=== PATIENT | male | born 1965 | race Caucasian/White ===

== ENCOUNTER 2020-09-11 09:44 | Outpatient (REF) | payer MEDICARE, MEDICAID, SELFPAY ==
[2020-09-11 11:37] LABS: TSH reflex Free T4 1.08 mIU/mL (0.32-4.0)
== END 2020-09-11 09:45 | disposition home or self-care (01) ==
LOC: HO.LAB 09:44
PROVIDERS: Visit Provider Internal Medicine
DX: E06.3 Autoimmune thyroiditis (principal)
CPT/HCPCS: 84443

== ENCOUNTER → 2020-12-02 13:51 | Outpatient (BNV) | payer MEDICARE, MEDICAID, SELFPAY | PROVIDERS: PCP Internal Medicine; Visit Provider Internal Medicine Medical Oncology | DX: C18.2 Malignant neoplasm of ascending colon (principal); C62.90 Malignant neoplasm of unspecified testis, unspecified whether descended or undescended | CPT/HCPCS: 99204; 99212; 99213; 99214; G2211 ==

== ENCOUNTER 2020-12-24 17:13 | Emergency (ER) | payer MEDICARE, MEDICAID, SELFPAY ==
--- NOTE | ~2020-12-24 | CT_ITS ---
EXAMINATION: CT HEAD WITHOUT CONTRAST CLINICAL INFORMATION: Blurry vision. COMPARISON: CT scan of the head 07/22/2016. TECHNIQUE: Contiguous axial imaging was performed from the skull base to vertex without intravenous administration of contrast. This CT examination was performed using dose optimization techniques as appropriate, variously including the following: *Automated exposure control *Adjustment of mA and/or kV according to patient size (this includes techniques or standardized protocols for targeted exams where dose is matched to indication/reason for exam; i.e. extremities or head) *Use of iterative reconstruction technique DLP: 805 mGy-cm FINDINGS: There are a few prominent perivascular spaces and/or chronic within infarcts within the left basal ganglia. Scattered calcifications are visualized within the centrum semiovale which remains stable when compared to prior imaging from 07/22/2016. There is no acute intracranial hemorrhage or abnormal extra-axial collection. No intracranial mass effect midline shift. Lateral and third ventricles are normal. No hydrocephalus. Hernandez-white matter differentiation is grossly preserved and there is no evidence of acute territorial infarct. The calvarium and skull base are intact.. There are bilateral mastoid effusions. Moderate paranasal sinus disease primarily affecting the ethmoid air cells and frontal sinuses. Globes and orbits are symmetric. CT/CT head/brain wo con IMPRESSION: No acute intracranial finding. There are scattered chronic small vessel ischemic changes within the periventricular white matter. No evidence of acute territorial infarct or hemorrhage. Again there are stable nonspecific foci of mineralization involving the supratentorial white matter suggesting the presence of an underlying metabolic disorder.
--- NOTE | ~2020-12-24 | XR_ITS ---
EXAMINATION: PORTABLE CHEST 1 VIEW CLINICAL INFORMATION: chest pain . COMPARISON: 10/10/2016. TECHNIQUE: Portable frontal view of the chest was obtained. FINDINGS: The lungs are mildly hypoexpanded. No focal infiltrate, effusion, edema, or pneumothorax. Cardiac and mediastinal silhouettes are within normal limits for technique. No acute bony abnormality seen with mild degenerative changes in the spine and shoulders. XR/XR chest 1V IMPRESSION: No evidence of acute disease.
[2020-12-24 17:22] VITALS: BP 158/99; BP 190/130; PULSE 73; PULSE 78; RESP 24; TEMP 36.5; O2SAT 98; O2SAT 99; BMI 29.7
--- NOTE | 2020-12-24 17:34 | ECG_ITS ---
Test Reason : VOMITING Blood Pressure : / mmHG Vent. Rate : 072 BPM Atrial Rate : 072 BPM P-R Int : 152 ms QRS Dur : 098 ms QT Int : 374 ms P-R-T Axes : 040 041 051 degrees QTc Int : 409 ms Normal sinus rhythm Possible Left atrial enlargement Borderline ECG When compared with ECG of 22-JUL-2016 22:53, No significant change was found Referred By: Sisi Warner Electronically Signed By:MIRTA CABRERA MD
--- NOTE | 2020-12-24 17:36 | ED_ITS ---
HPI - Nausea/Vomiting/Diarrhea General Chief complaint: Nausea/Vomiting/Diarrhea Stated complaint: n/v, visual issue, htn Time Seen by Provider: 12/24/20 17:24 Source: patient and family Mode of arrival: ambulatory Limitations: other (Academic impairment, hearing impaired) History of Present Illness HPI Narrative: 55-year-old male with past medical history of academic impairment, hearing impairment, stage III seminoma in remission, thyroiditis, and hypertension presents with an episode of inability to control his eye movements and blurred vision, nausea, vomiting and chest pain. This started at 3:00 p.m. while he was getting onto his van from his work or day program. He states that the symptoms have resolved at this time. He does not report any prior illnesses, is no longer on chemotherapy, and does not take any medications at home. He does not drink alcohol or use illicit substances. His brother who is his guardian and vegetable harvest machine operator is at his bedside. MD elicited complaint: nausea, vomiting and other (Chest pain, irregular eye movements and blurred vision) Onset (ago): hour(s) (3:00 p.m.) Description of vomiting: watery Associated nausea: Yes Associated abdominal pain: No Location of pain: other (Substernal chest pain now resolved) Pain consistency: now resolved Severity: moderate Associated symptoms: chest pain and nausea/vomiting Related Data Home Medications Medication Instructions Recorded Confirmed No Known Home Meds 12/01/20 12/01/20 Allergies Allergy/AdvReac Type Severity Reaction Status Date / Time No Known Allergies Allergy Unknown NKA Verified 12/01/20 08:47 [No Known Allergies*] Review of Systems Review of Systems: Constitutional: No Weight loss, No Fever, No Chills, No Night Sweats, No Fatigue, No Malaise ENT/Mouth: Positive Hearing loss per baseline, No Ear Pain, No Nasal Congestion, No Sinus Pain, No Hoarseness, No sore throat, No Rhinorrhea, No Swallowing Difficulty Eyes: Positive irregular eye movements, No Eye Pain, No Swelling, No Redness, No Foreign Body, No Discharge, No Vision Changes Cardiovascular: Positive Chest Pain, no SOB, no Dyspnea on Exertion, No Orthopnea, No Edema, No Palpitations Respiratory: No Cough, No Sputum, No Wheezing, No Smoke Exposure, No Dyspnea Gastrointestinal: Positive Nausea, No Vomiting, No Diarrhea, No abdominal Pain, No Hematochezia, No Melena Genitourinary: No irregular bleeding, No Dysuria, No Urinary Frequency, No Hematuria, No Urinary Incontinence, No Urgency, No Flank Pain, No Urinary Flow Changes, No Hesitancy Musculoskeletal: No joint pain, No Myalgias, No Joint Swelling Skin: No Skin Lesions, No rash Neuro: No Weakness, No Numbness, No Paresthesias, No Loss of Consciousness, No Dizziness, No Headache Psych: No Anxiety/Panic, No Depression, No SI/HI/AH/VH Heme/Lymph: No Bruising, No Bleeding,No Lymphadenopathy Endocrine: No Polyuria, No Polydipsia, No Temperature Intolerance Yes all other systems are reviewed and are negative Gastrointestinal: Gastrointestinal: Reports nausea PMFSH Past Medical History Attestation statement: The following information was validated with the patient. Source: old records reviewed Medical History Autoimmune thyroiditis Bicytopenia Developmental delay, mild Family history of hypertension Hearing loss HTN (hypertension) Seminoma Testicle cancer Surgical History H/O arthroscopic knee surgery History of cholecystectomy History of neck surgery History of orchiectomy History of tonsillectomy Family History Family History Father Lung cancer Hypertension Mother Hypertension Paternal Grandfather Cancer Social History Social History Alcohol intake: never Smoking Status: Never smoker Use of substances other than those prescribed or required for medical reasons: No Advance Directives: No Advance Directives Information Provided: Yes Physical Exam Vital Signs: Vital Signs: Last Vital Signs Temp 98.7 F 12/24/20 20:16 Pulse 69 12/24/20 20:16 Resp 16 12/24/20 20:16 BP 147/87 H 12/24/20 20:16 Pulse Ox 98 12/24/20 20:16 Body Mass Index 29.7 Appearance: Alert. Oriented X3. No acute distress. Eyes: Pupils equal, round and reactive to light. EOMI with noted nystagmus to all gazes ENT: Pharynx normal. Neck: Normal inspection. Neck supple. CVS: Normal heart rate and rhythm. Pulses normal. Respiratory: No respiratory distress. Breath sounds normal. Abdomen: Soft and nontender. Skin: Skin warm and dry. Normal skin color. Normal skin turgor. Extremities: No lower extremity edema. Moves all extremities against resistance, gait well balanced well coordinated Neuro: No motor deficit. No sensory deficit. NIH Stroke Scale Internal: Initial- Upon Arrival Level of Consciousness: Alert Level of Consciousness Questions: Answers both questions correctly Level of Consciousness Commands: Performs both tasks correctly Best Gaze: Normal Visual: No visual loss Facial Palsy: Normal Motor Arm (Right): No drift Motor Arm (Left): No drift Motor Leg (Right): No drift Motor Leg (Left): No drift Limb Ataxia: Absent Sensory: Normal Best Language: No aphasia Dysarthia: Normal Extinction and Inattention: No abnormality Score: 0 Course Course Course Narrative: 55-year-old male with cognitive impairment, hearing impairmen t, stage 3 seminoma, thyroiditis, and hypertension presents with a retic eye movements, nausea, vomiting, and chest pain. Plan of care is for CT scan of the head, rule out ACS and arrhythmia, CBC, Chem 7, and COVID. Extraocular exam shows nystagmus to all gazes otherwise cranial nerves 2-12 intact. Chest x-ray is normal, EKG normal sinus with left atrial enlargement, consistent with prior EKGs. Lab values are within normal limits platelet count is 80 which is consistent with his prior lab values dating back to prior to 2018 and his diagnosis of bicytopenia. CT scan of the head is consistent with prior study done in 2016. Plan of care is to have outpatient referral to Neurology. Patient's brother and patient verbalized understanding of and agrees plan of care discharge home. MDM - Nausea/Vomiting/Diarrhea MDM Narrative Medical decision making narrative: Vasovagal, ACS, CVA Differential Diagnosis Differential diagnosis: Likely gastroenteritis and dehydration Medical Records Attestation: I reviewed the patient's medical records. Lab Data Attestation: I reviewed the patient's lab results. Result diagrams: 12/24/20 17:42 12/24/20 17:42 Labs: Lab Results 12/24/20 12/24/20 12/24/20 Range/Units 17:40 17:42 17:42 WBC 5.2 (4.8-10.8) X10*3/uL RBC 4.04 L (4.60-5.80) X10*6/uL Hgb 14.6 (14.0-18.0) g/dl Hct 41.9 L (42-52) % MCV 103.7 H (80-98) fL MCH 36.1 H (27.0-33.0) pg MCHC 34.8 (31.0-36.0) g/dl RDW 13.1 (11.0-16.0) % Plt Count 80 L (160-400) X10*3/uL MPV 8.3 L (9.4-12.4) fL Immature Gran % (Auto) 0.4 (0.0-0.4) % Neut % (Auto) 84.7 H (45-73) % Lymph % (Auto) 8.1 L (20-40) % [place] % (Auto) 6.2 (2-11) % Eos % (Auto) 0.4 (0-4) % Baso % (Auto) 0.2 (0-2) % Lymph # (Auto) 0.4 L (1.2-4.9) X10*3/uL [place] # (Auto) 0.3 (0.1-1.2) X10*3/uL Eos # (Auto) 0.0 (0.0-0.4) X10*3/uL Baso # (Auto) 0.0 (0.0-0.2) X10*3/uL Abs Immat Gran (auto) 0.02 (0.00-0.03) X10*3/uL Absolute Neuts (auto) 4.4 (2.0-8.3) X10*3/uL Absolute Nucleated RBC 0.000 (0.0-0.012) X10*3/uL Nucleated RBC % (auto) 0.0 (0.0-0.2) /100WBC Smear Tech's Comments VERIFIED PT 13.7 H (10.8-13.0) SEC INR 1.2 H (0.9-1.1) APTT 30.8 (24.1-38.0) SEC Sodium (135-145) mmol/L Potassium (3.3-5.1) mmol/L Chloride (96-108) mmol/L Carbon Dioxide (22-29) mmol/L Anion Gap (12-20) BUN (9-16) mg/dL Creatinine (0.5-1.4) mg/dL Estim Creat Clear Calc Estimated GFR POC Glucose 87 (60-115) mg/dL Random Glucose (60-115) mg/dL Calcium (8.4-10.2) mg/dL Magnesium (1.6-2.6) mg/dL Total Bilirubin (0.0-1.0) mg/dL Direct Bilirubin (0.0-0.5) mg/dL AST (5-37) U/L ALT (0-40) U/L Alkaline Phosphatase (39-117) U/L Troponin I High Sens (<3.5-35.0) ng/L Total Protein (6.5-8.0) g/dL Albumin (3.5-5.0) g/dL Lipase (8-78) U/L Urine Color Urine Appearance Urine pH (5.0-8.0) Ur Specific [place] (1.005-1.025) Urine Protein (NEG-TRACE) MG/DL Urine Glucose (UA) (NEG) MG/DL Urine Ketones (NEG) MG/DL Urine Blood (NEG) Urine Nitrite (NEG) Ur Leukocyte Esterase (NEG) Coronavirus (PCR) (Negative) Influenza Type A (PCR) (Negative) Influenza Type B (PCR) (Negative) RSV RNA Qual (PCR) (Negative) 12/24/20 12/24/20 12/24/20 Range/Units 17:42 17:42 17:42 WBC (4.8-10.8) X10*3/uL RBC (4.60-5.80) X10*6/uL Hgb (14.0-18.0) g/dl Hct (42-52) % MCV (80-98) fL MCH (27.0-33.0) pg MCHC (31.0-36.0) g/dl RDW (11.0-16.0) % Plt Count (160-400) X10*3/uL MPV (9.4-12.4) fL Immature Gran % (Auto) (0.0-0.4) % Neut % (Auto) (45-73) % Lymph % (Auto) (20-40) % [place] % (Auto) (2-11) % Eos % (Auto) (0-4) % Baso % (Auto) (0-2) % Lymph # (Auto) (1.2-4.9) X10*3/uL [place] # (Auto) (0.1-1.2) X10*3/uL Eos # (Auto) (0.0-0.4) X10*3/uL Baso # (Auto) (0.0-0.2) X10*3/uL Abs Immat Gran (auto) (0.00-0.03) X10*3/uL Absolute Neuts (auto) (2.0-8.3) X10*3/uL Absolute Nucleated RBC (0.0-0.012) X10*3/uL Nucleated RBC % (auto) (0.0-0.2) /100WBC Smear Tech's Comments PT (10.8-13.0) SEC INR (0.9-1.1) APTT (24.1-38.0) SEC Sodium 139 (135-145) mmol/L Potassium 4.4 (3.3-5.1) mmol/L Chloride 101 (96-108) mmol/L Carbon Dioxide 31 H (22-29) mmol/L Anion Gap 11 L (12-20) BUN 16 (9-16) mg/dL Creatinine 0.94 (0.5-1.4) mg/dL Estim Creat Clear Calc 77.1 Estimated GFR > 60 POC Glucose (60-115) mg/dL Random Glucose 101 (60-115) mg/dL Calcium 8.7 (8.4-10.2) mg/dL Magnesium 1.8 (1.6-2.6) mg/dL Total Bilirubin 0.7 (0.0-1.0) mg/dL Direct Bilirubin 0.3 (0.0-0.5) mg/dL AST 19 (5-37) U/L ALT 11 (0-40) U/L Alkaline Phosphatase 55 (39-117) U/L Troponin I High Sens 7.6 (<3.5-35.0) ng/L Total Protein 7.0 (6.5-8.0) g/dL Albumin 4.1 (3.5-5.0) g/dL Lipase 39 (8-78) U/L Urine Color Urine Appearance Urine pH (5.0-8.0) Ur Specific [place] (1.005-1.025) Urine Protein (NEG-TRACE) MG/DL Urine Glucose (UA) (NEG) MG/DL Urine Ketones (NEG) MG/DL Urine Blood (NEG) Urine Nitrite (NEG) Ur Leukocyte Esterase (NEG) Coronavirus (PCR) NEGATIVE (Negative) Influenza Type A (PCR) NEGATIVE (Negative) Influenza Type B (PCR) NEGATIVE (Negative) RSV RNA Qual (PCR) NEGATIVE (Negative) 12/24/20 Range/Units 19:40 WBC (4.8-10.8) X10*3/uL RBC (4.60-5.80) X10*6/uL Hgb (14.0-18.0) g/dl Hct (42-52) % MCV (80-98) fL MCH (27.0-33.0) pg MCHC (31.0-36.0) g/dl RDW (11.0-16.0) % Plt Count (160-400) X10*3/uL MPV (9.4-12.4) fL Immature Gran % (Auto) (0.0-0.4) % Neut % (Auto) (45-73) % Lymph % (Auto) (20-40) % [place] % (Auto) (2-11) % Eos % (Auto) (0-4) % Baso % (Auto) (0-2) % Lymph # (Auto) (1.2-4.9) X10*3/uL [place] # (Auto) (0.1-1.2) X10*3/uL Eos # (Auto) (0.0-0.4) X10*3/uL Baso # (Auto) (0.0-0.2) X10*3/uL Abs Immat Gran (auto) (0.00-0.03) X10*3/uL Absolute Neuts (auto) (2.0-8.3) X10*3/uL Absolute Nucleated RBC (0.0-0.012) X10*3/uL Nucleated RBC % (auto) (0.0-0.2) /100WBC Smear Tech's Comments PT (10.8-13.0) SEC INR (0.9-1.1) APTT (24.1-38.0) SEC Sodium (135-145) mmol/L Potassium (3.3-5.1) mmol/L Chloride (96-108) mmol/L Carbon Dioxide (22-29) mmol/L Anion Gap (12-20) BUN (9-16) mg/dL Creatinine (0.5-1.4) mg/dL Estim Creat Clear Calc Estimated GFR POC Glucose (60-115) mg/dL Random Glucose (60-115) mg/dL Calcium (8.4-10.2) mg/dL Magnesium (1.6-2.6) mg/dL Total Bilirubin (0.0-1.0) mg/dL Direct Bilirubin (0.0-0.5) mg/dL AST (5-37) U/L ALT (0-40) U/L Alkaline Phosphatase (39-117) U/L Troponin I High Sens (<3.5-35.0) ng/L Total Protein (6.5-8.0) g/dL Albumin (3.5-5.0) g/dL Lipase (8-78) U/L Urine Color YELLOW Urine Appearance CLEAR Urine pH 5.5 (5.0-8.0) Ur Specific [place] 1.025 (1.005-1.025) Urine Protein NEG (NEG-TRACE) MG/DL Urine Glucose (UA) NEG (NEG) MG/DL Urine Ketones 15 (NEG) MG/DL Urine Blood NEG (NEG) Urine Nitrite NEG (NEG) Ur Leukocyte Esterase NEG (NEG) Coronavirus (PCR) (Negative) Influenza Type A (PCR) (Negative) Influenza Type B (PCR) (Negative) RSV RNA Qual (PCR) (Negative) Imaging Data Chest x-ray: Attestation: I personally reviewed and interpreted this imaging study as follows: Radiologist's impression: EXAMINATION: PORTABLE CHEST 1 VIEW CLINICAL INFORMATION: chest pain . COMPARISON: 10/10/2016. TECHNIQUE: Portable frontal view of the chest was obtained. FINDINGS: The lungs are mildly hypoexpanded. No focal infiltrate, effusion, edema, or pneumothorax. Cardiac and mediastinal silhouettes are within normal limits for technique. No acute bony abnormality seen with mild degenerative changes in the spine and shoulders. XR/XR chest 1V IMPRESSION: No evidence of acute disease. CT scan - head: Attestation: I personally reviewed and interpreted this imaging study as follows: Radiologist's impression: EXAMINATION: CT HEAD WITHOUT CONTRAST CLINICAL INFORMATION: Blurry vision. COMPARISON: CT scan of the head 07/22/2016. TECHNIQUE: Contiguous axial imaging was performed from the skull base to vertex without intravenous administration of contrast. This CT examination was performed using dose optimization techniques as appropriate, variously including the following: *Automated exposure control *Adjustment of mA and/or kV according to patient size (this includes techniques or standardized protocols for targeted exams where dose is matched to indication/reason for exam; i.e. extremities or head) *Use of iterative reconstruction technique DLP: 805 mGy-cm FINDINGS: There are a few prominent perivascular spaces and/or chronic within infarcts within the left basal ganglia. Scattered calcifications are visualized within the centrum semiovale which remains stable when compared to prior imaging from 07/22/2016. There is no acute intracranial hemorrhage or abnormal extra-axial collection. No intracranial mass effect midline shift. Lateral and third ventricles are normal. No hydrocephalus. Hernandez-white matter differentiation is grossly preserved and there is no evidence of acute territorial infarct. The calvarium and skull base are intact.. There are bilateral mastoid effusions. Moderate paranasal sinus disease primarily affecting the ethmoid air cells and frontal sinuses. Globes and orbits are symmetric. CT/CT head/brain wo con IMPRESSION: No acute intracranial finding. There are scattered chronic small vessel ischemic changes within the periventricular white matter. No evidence of acute territorial infarct or hemorrhage. Again there are stable nonspecific foci of mineralization involving the supratentorial white matter suggesting the presence of an underlying metabolic disorder. ECG Data Attestation: I personally reviewed and interpreted this ECG as follows: ECG interpretation date: 12/24/20 ECG interpretation time: 17:47 Prior ECG tracings: available for review Interpretation: Vent. rate 72 BPM OR interval 152 ms QRS duration 98 ms QT/QTc 374/409 ms P-R-T axes 40 41 51 Normal sinus rhythm Possible Left atrial enlargement Borderline ECG When compared with ECG of 22-JUL-2016 22:53, No s ignificant change was found Discharge Plan Discharge Clinical Impression: Bicytopenia, Nystagmus Patient Disposition: Home, Self-Care Instructions: Dizziness (ED) Additional Instructions: You were evaluated for abnormal eye movements, nauseousness and dizziness. EKG is normal sinus rhythm, troponins which are cardiac enzymes are negative, lab values are within your normal limits CT scan of the head shows changes which have been consistent since 2016. Please consider following up with Neurology as an outpatient. Call Dr. Azevedo and ask for an appointment. Please let him know that you were evaluated for abnormal eye movements called nystagmus. Thank you for choosing this emergency department for evaluation. Please follow-up with primary care physician as needed. Return to the emergency department for any new, concerning, or worsening symptoms. Prescriptions: No Action No Known Home Meds RF: 0 Referrals: Cristina Azevedo MD [Physician] - 2 days (Abnormal extraocular eye movements) Interventions: ED Discharge Assessment Last Done: 12/24/20 20:58 Discharge Date/Time: 12/24/20 21:00
[2020-12-24 17:48] LABS: Glucose, Whole Blood 87 mg/dL (60-115)
[2020-12-24 17:52] LABS: Basophils Percent Auto 0.2 % (0-2); Eosinophils Percent Auto 0.4 % (0-4); Hematocrit 41.9 % (42-52); Hemoglobin 14.6 g/dl (14.0-18.0); Imm Gran Abs Auto 0.02 X10*3/uL (0.00-0.03); Imm Gran Pct Auto 0.4 % (0.0-0.4); Lymphocytes Absolute Auto 0.4 X10*3/uL (1.2-4.9); Lymphocytes Percent Auto 8.1 % (20-40); MANUAL DIFF FLAG SCAN; Mean Corpuscular HGB Conc 34.8 g/dl (31.0-36.0); Mean Corpuscular Hemoglobin 36.1 pg (27.0-33.0); Mean Corpuscular Volume 103.7 fL (80-98); Mean Platelet Volume 8.3 fL (9.4-12.4); Monocytes Absolute Auto 0.3 X10*3/uL (0.1-1.2); Monocytes Percent Auto 6.2 % (2-11); Neutrophils Absolute Auto 4.4 X10*3/uL (2.0-8.3); Neutrophils Percent Auto 84.7 % (45-73); Red Blood Count 4.04 X10*6/uL (4.60-5.80); Red Cell Distribution Width 13.1 % (11.0-16.0); SCAN SMEAR FLAG 1; White Blood Count 5.2 X10*3/uL (4.8-10.8)
[2020-12-24 18:07] LABS: INTERNATIONAL NORM RATIO 1.2 (0.9-1.1); Prothrombin Time 13.7 SEC (10.8-13.0)
[2020-12-24 18:09] LABS: Partial Thromboplastin Time 30.8 SEC (24.1-38.0)
[2020-12-24 18:10] LABS: Platelet Count 80 X10*3/uL (160-400); SLIDE REVIEW VERIFIED
[2020-12-24 18:17] LABS: Alanine Aminotransferase 11 U/L (0-40); Albumin Level 4.1 g/dL (3.5-5.0); Alkaline Phosphatase 55 U/L (39-117); Anion Gap 11 (12-20); Aspartate Amino Transferase 19 U/L (5-37); Bilirubin Direct 0.3 mg/dL (0.0-0.5); Bilirubin Total 0.7 mg/dL (0.0-1.0); Blood Urea Nitrogen 16 mg/dL (9-16); Calcium 8.7 mg/dL (8.4-10.2); Carbon Dioxide 31 mmol/L (22-29); Chloride 101 mmol/L (96-108); Creatinine Clr Calc Pharmacy 77.1; Estimated Glomerular Filt Rate > 60; Glucose Random 101 mg/dL (60-115); Lipase 39 U/L (8-78); Magnesium 1.8 mg/dL (1.6-2.6); Potassium 4.4 mmol/L (3.3-5.1); Sodium 139 mmol/L (135-145)
[2020-12-24 18:23] LABS: Troponin-I High Sensitivity 7.6 ng/L (<3.5-35.0)
[2020-12-24 18:31] LABS: Influenza A PCR NEGATIVE (Negative); Influenza B PCR NEGATIVE (Negative); Resp Syncy Virus RNA Qual PCR NEGATIVE (Negative); SARS COV2 PCR INHOUSE NEGATIVE (Negative)
[2020-12-24 18:40] VITALS: BP 142/87; PULSE 73; RESP 17; TEMP 36.6; O2SAT 98
[2020-12-24 19:36] VITALS: BP 144/87; PULSE 74; RESP 18; TEMP 37.1; O2SAT 97
[2020-12-24 19:48] LABS: Glucose Urine UA NEG (NEG); Leukocyte Esterase Urine NEG (NEG); Nitrite Urine NEG (NEG); PH 5.5 (5.0-8.0); Specific Gravity - Urine 1.025 (1.005-1.025); Urine Blood NEG (NEG); Urine Ketones 15 MG/DL (NEG); Urine Protein NEG (NEG-TRACE)
[2020-12-24 19:49] LABS: Appearance Urine CLEAR; Color Urine YELLOW
[2020-12-24 20:16] VITALS: BP 147/87; PULSE 69; RESP 16; TEMP 37.1; O2SAT 98
== END 2020-12-24 21:00 | disposition home or self-care (01) ==
PROVIDERS: Nurse Practitioner Family; Emergency Provider Emergency Medicine; PCP Internal Medicine
DX: H55.00 Unspecified nystagmus (principal); D61.810 Antineoplastic chemotherapy induced pancytopenia; R42 Dizziness and giddiness; Z20.822 Contact with and (suspected) exposure to COVID-19; I10 Essential (primary) hypertension; Z85.47 Personal history of malignant neoplasm of testis
CPT/HCPCS: 0241U; 36415; 70450; 71045; 80048; 80076; 81003; 82947; 83690; 83735; 84484; 85025; 85610; 85730; 93005; 99284

== ENCOUNTER 2020-12-26 11:35 | Emergency (ER) | payer MEDICARE, MEDICAID, SELFPAY ==
--- NOTE | ~2020-12-26 | MR_ITS ---
MRI OF THE BRAIN WITHOUT IV CONTRAST INDICATION: Dizziness. Lateral Rotary nystagmus for 3 days. COMPARISON: Head CT performed earlier the same day. TECHNIQUE: Multiplanar multisequence MR imaging of the brain was obtained without IV contrast. FINDINGS: There is no hydrocephalus, extra-axial surface collection, or herniation. Calcification along the posterior falx cerebri. 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 There is moderate chronic microangiopathy. Asymmetric prominence of the extra-axial CSF space within the left posterior fossa. The major flow voids at the skull base are preserved. There is no acute infarct on diffusion-weighted imaging. There is no intracranial hemorrhage on the gradient recalled echo acquisition. The midline structures are normal. The cerebellar tonsils are normally positioned. The cerebellum and brainstem are normal. The craniocervical junction is normal. Osseous marrow signal intensity is homogenous. The visualized soft tissues are unremarkable. Large right mastoid/middle ear cavity effusion. MR/MR head/brain wo con IMPRESSION: - No acute intracranial findings. 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 - Large right mastoid/middle ear cavity effusion.
[2020-12-26 11:45] VITALS: BP 154/90; BP 180/90; PULSE 78; PULSE 84; RESP 17; TEMP 36.7; O2SAT 98; O2SAT 99; BMI 25.9
--- NOTE | 2020-12-26 12:21 | ECG_ITS ---
Test Reason : CHEST PAIN Blood Pressure : / mmHG Vent. Rate : 076 BPM Atrial Rate : 076 BPM P-R Int : 148 ms QRS Dur : 086 ms QT Int : 390 ms P-R-T Axes : 043 045 067 degrees QTc Int : 438 ms Normal sinus rhythm Possible Left atrial enlargement Borderline ECG When compared with ECG of 24-DEC-2020 17:47, No significant change was found Referred By: Frank Fountain Electronically Signed By:MIRTA CABRERA MD
--- NOTE | 2020-12-26 12:24 | ED_ITS ---
HPI - General Adult General Chief complaint: General Medical Stated complaint: HIGH BP, SHAKY EYES SAME LAST SUNDAY Time Seen by Provider: 12/26/20 11:44 Source: patient and family (Brother, Wilfrido) Mode of arrival: ambulatory Limitations: no limitations History of Present Illness HPI narrative: 55-year-old male hearing impaired and developmental delay who presents the emergency department for evaluation of persistent nystagmus. The patient is hearing impaired, he came here with a hearing aid and he can read l ips. The patient has developmental delay in his brother states that his IQ was 50 but he is highly functional and can work. The patient's brother Wilfrido is here in the emergency department and most of the information came from the patient's brother. The patient was seen here in the emergency department on Sunday with dizziness, chest pain and a stagnant. According to his brother, the patient works at [employer]. He completed the shift in when he was trying to go home he had difficulty seeing and walking. He was unable to afford the boss and his brother had to pick him up. He was noted to have abnormal eye movements. He was noted to have hypertension and the brother states his blood pressure was 140/110. He had associated nausea vomiting chest pain and dizziness. He was seen here in the emergency department and had a in negative workup and was referred to Neurology. According to his brother the patient was doing fine this morning. At approximately 9:30 a.m., his symptoms returned. He complained of difficulty seeing his eyes removing, lightheadedness, dizziness, nausea and chest pain. Patient states that his blood pressure was elevated at home and he was concerned that the symptoms returned, therefore he brought the patient to the emergency department for evaluation did Related Data Home Medications Medication Instructions Recorded Confirmed No Known Home Meds 12/01/20 12/01/20 Allergies Allergy/AdvReac Type Severity Reaction Status Date / Time No Known Allergies Allergy Unknown NKA Verified 12/01/20 08:47 [No Known Allergies*] Review of Systems Review of Systems: Yes all other systems are reviewed and are negative Neurologic: Reports Abnormal speech present (Secondary to hearing deficits, comprehensible) PMFSH Past Medical History PMFSH Narrative: The patient lives with his brother here in the emergency department the patient. The patient does not drink alcohol, smoke cigarettes or use drugs. The patient works at [employer]. Medical History Autoimmune thyroiditis Bicytopenia Developmental delay, mild Family history of hypertension Hearing loss HTN (hypertension) [place]in[place] Testicle cancer Surgical History H/O arthroscopic knee surgery History of cholecystectomy History of neck surgery History of orchiectomy History of tonsillectomy Family History Family History Father Lung cancer Hypertension Mother Hypertension Paternal Grandfather Cancer Social History Social History Alcohol intake: never Smoking Status: Never smoker Smoked in Last 30 Days: No Use of substances other than those prescribed or required for medical reasons: No Advance Directives: No Advance Directives Information Provided: Yes Physical Exam Vital Signs: Vital Signs: Last Vital Signs Temp 98.6 F 12/26/20 16:26 Pulse 74 12/26/20 16:26 Resp 16 12/26/20 16:26 BP 153/89 H 12/26/20 16:26 Pulse Ox 98 12/26/20 16:26 Body Mass Index 25.9 Const: General: cooperative and other ( can hear with hearing aid, speech is abnormal secondary to hearing impair) Orientation/consciousness: oriented to person and oriented to place Limitations: no limitations HENMT: Head: Yes normal to inspection, Yes normocephalic and Yes atraumatic Ears: external ears normal and other (Hearing in right ear) General nose exam: Normal external nose present Face and sinus: Yes normal facial exam Mouth: Normal oral and palatal mucosa present Throat: Yes posterior oropharynx normal Eyes: Periorbital: periorbital findings normal Eyelids: Yes eyelids normal Conjunctivae: conjunctivae normal Sclerae: sclerae normal Corneas: corneas normal Pupils: Equal, round and reactive pupils present EOM: Nystagmus present (Lateral nystagmus, rotatory nystagmus, no vertical nystagmus) Direct Ophthalmoscopy: normal light reflex Neck: Neck: Yes full ROM, Yes no lymphadenopathy, Yes no meningeal signs, Yes trachea midline and Yes supple Chest: Chest palpation & inspection: normal inspection of the chest and normal palpation of entire chest wall Resp: Effort & Inspection: normal respiratory effort and able to speak in complete sentences Auscultation: clear to auscultation bilaterally Cardio: Rate: regular rate Rhythm: regular rhythm Heart sounds: S1 normal heart sound present, S2 normal heart sound present and no murmurs GI: Inspection: Yes normal to inspection Palpation (GI): Soft to palpation, nontender, no guarding, not rigid and No hepatosplenomegaly present : General: Yes no CVA tenderness Back/Spine/Pelvis: Back: no CVA tenderness Cervical Spine: normal cervical lordosis Thoracic/Lumbar Spine: thoracic and lumbar spine normal to inspection Skin: Lesions: no lesions Rashes: no rashes Wounds: no wounds Neuro: General: oriented to person, oriented to place and no meningeal signs Cranial nerves: Yes CN's II-XII intact bilaterally and Yes Equal, round and reactive pupils present Cognition (Neuro): normal cognition Speech: Abnormal speech present (Secondary to hearing deficits, comprehensible) Motor exam (neuro): 5/5 motor strength present throughout Coordination: [id number] test normal, wheq-ic-hxan test normal and Normal rapid alternating movements of the distal upper extremity present (Neuro) Extrem: General: Yes normal to inspection and Yes full ROM Psych: Appearance: well kempt Mental Status: mental status grossly normal Affect: normal affect Attitude: cooperative Thought process: Normal thought process present Thought content: Normal thought content present NIH Stroke Scale Level of Consciousness: Alert Level of Consciousness Questions: Answers both questions correctly Level of Consciousness Commands: Performs both tasks correctly Best Gaze: Normal Visual: No visual loss Facial Palsy: Normal Motor Arm (Right): No drift Motor Arm (Left): No drift Motor Leg (Right): No drift Motor Leg (Left): No drift Limb Ataxia: Absent Sensory: Normal Best Language: No aphasia Dysarthia: Normal Extinction and Inattention: No abnormality Score: 0 Course Course Course Narrative: 55-year-old male presents emergency department for evaluation dizziness, nausea, nystagmus. This is the patient's 2nd visit, he was here 3 days prior with similar symptoms. The patient's examination did reveal significant nystagmus (lateral and rotatory). I am concerned that the patient may have a cerebellar stroke therefore did order an MRI of the brain. I also ordered a laboratory evaluation. The patient's nausea was treated with Zofran 4 mg IV and his dizziness was treated with meclizine 25 mg orally. 1710: The patient did feel better with the above treatment. Laboratory evaluation did reveal low white blood cell count low platelet count which is chronic for this patient. MRI of the brain revealed no evidence of cerebellar stroke. Patient's presentation is consistent with positional vertigo. He was started on meclizine 25 mg 3 times a day as needed for dizziness. He was advised to follow up with his PCP if his symptoms persist he will need referral to ENT. Medical Decision Making Lab Data Result diagrams: 12/26/20 12:43 12/26/20 12:42 Labs: Lab Results 12/26/20 12/26/20 12/26/20 Range/Units 12:42 12:42 12:43 WBC 2.4 L (4.8-10.8) X10*3/uL RBC 4.32 L (4.60-5.80) X10*6/uL Hgb 15.5 (14.0-18.0) g/dl Hct 45.1 (42-52) % MCV 104.4 H (80-98) fL MCH 35.9 H (27.0-33.0) pg MCHC 34.4 (31.0-36.0) g/dl RDW 13.2 (11.0-16.0) % Plt Count 77 L (160-400) X10*3/uL MPV 8.6 L (9.4-12.4) fL Immature Gran % (Auto) 0.4 (0.0-0.4) % Neut % (Auto) 73.7 H (45-73) % Lymph % (Auto) 16.5 L (20-40) % [place] % (Auto) 7.8 (2-11) % Eos % (Auto) 1.6 (0-4) % Baso % (Auto) 0.0 (0-2) % Lymph # (Auto) 0.4 L (1.2-4.9) X10*3/uL [place] # (Auto) 0.2 (0.1-1.2) X10*3/uL Eos # (Auto) 0.0 (0.0-0.4) X10*3/uL Baso # (Auto) 0.0 (0.0-0.2) X10*3/uL Abs Immat Gran (auto) 0.01 (0.00-0.03) X10*3/uL Absolute Neuts (auto) 1.8 L (2.0-8.3) X10*3/uL Absolute Nucleated RBC 0.000 (0.0-0.012) X10*3/uL Nucleated RBC % (auto) 0.0 (0.0-0.2) /100WBC Smear Tech's Comments VERIFIED PT 13.2 H (10.8-13.0) SEC INR 1.1 (0.9-1.1) APTT 37.1 D (24.1-38.0) SEC Sodium 137 (135-145) mmol/L Potassium 3.8 (3.3-5.1) mmol/L Chloride 99 (96-108) mmol/L Carbon Dioxide 29 (22-29) mmol/L Anion Gap 13 (12-20) BUN 17 H (9-16) mg/dL Creatinine 0.94 (0.5-1.4) mg/dL Estim Creat Clear Calc 67.7 Estimated GFR > 60 Random Glucose 91 (60-115) mg/dL Calcium 8.7 (8.4-10.2) mg/dL Total Bilirubin 1.1 H (0.0-1.0) mg/dL AST 18 (5-37) U/L ALT 14 (0-40) U/L Alkaline Phosphatase 59 (39-117) U/L Total Protein 7.0 (6.5-8.0) g/dL Albumin 4.1 (3.5-5.0) g/dL ECG Data Attestation: I personally reviewed and interpreted this ECG as follows: Interpretation: 1230: Normal sinus rhythm rate 76, normal ND, QRS and QTC intervals, small Q-wave in lead 2, 3 and AVF, V4 through V5 no ST segment elevation, no ST segment depression, no old EKG for comparison. Discharge Plan Discharge Prescriptions: No Action No Known Home Meds RF: 0
[2020-12-26] MEDS: 0.9 % Sodium Chloride 1,000 ML 999 ML IV (12:37)
[2020-12-26] MEDS: ondansetron HCL 4 MG/2 ML VIAL IVPUSH (12:38)
[2020-12-26] MEDS: Meclizine HCl 25 MG TABLET PO (12:42)
--- NOTE | 2020-12-26 12:47 | PC.NURSE ---
iv inserted, labs drawn, ekg performed, swallow eval done-pt passed swallow eval, pt medicated per order.
[2020-12-26 12:52] LABS: Eosinophils Percent Auto 1.6 % (0-4); Hematocrit 45.1 % (42-52); Hemoglobin 15.5 g/dl (14.0-18.0); Imm Gran Abs Auto 0.01 X10*3/uL (0.00-0.03); Imm Gran Pct Auto 0.4 % (0.0-0.4); Lymphocytes Absolute Auto 0.4 X10*3/uL (1.2-4.9); Lymphocytes Percent Auto 16.5 % (20-40); MANUAL DIFF FLAG SCAN; Mean Corpuscular HGB Conc 34.4 g/dl (31.0-36.0); Mean Corpuscular Hemoglobin 35.9 pg (27.0-33.0); Mean Corpuscular Volume 104.4 fL (80-98); Mean Platelet Volume 8.6 fL (9.4-12.4); Monocytes Absolute Auto 0.2 X10*3/uL (0.1-1.2); Monocytes Percent Auto 7.8 % (2-11); Neutrophils Absolute Auto 1.8 X10*3/uL (2.0-8.3); Neutrophils Percent Auto 73.7 % (45-73); Platelet Count 77 X10*3/uL (160-400); Red Blood Count 4.32 X10*6/uL (4.60-5.80); Red Cell Distribution Width 13.2 % (11.0-16.0); SCAN SMEAR FLAG 1; White Blood Count 2.4 X10*3/uL (4.8-10.8)
[2020-12-26 12:58] LABS: INTERNATIONAL NORM RATIO 1.1 (0.9-1.1); Prothrombin Time 13.2 SEC (10.8-13.0)
[2020-12-26 13:01] LABS: Partial Thromboplastin Time 37.1 SEC (24.1-38.0)
--- NOTE | 2020-12-26 13:17 | PC.NURSE ---
patient oob with assist at bedside, patient independently used urinal and was assisted back into bed.
--- NOTE | 2020-12-26 13:18 | PC.NURSE ---
patient a&o to his baseline-developmentally delayed, caregiver-brother is at bedside to assist with answering questions about medical history. Patients neuro is intact, vitals remain stable, mri screening form has been completed, will continue to monitor.
[2020-12-26 13:24] LABS: SLIDE REVIEW VERIFIED
[2020-12-26 13:29] LABS: Alanine Aminotransferase 14 U/L (0-40); Albumin Level 4.1 g/dL (3.5-5.0); Alkaline Phosphatase 59 U/L (39-117); Anion Gap 13 (12-20); Aspartate Amino Transferase 18 U/L (5-37); Bilirubin Total 1.1 mg/dL (0.0-1.0); Blood Urea Nitrogen 17 mg/dL (9-16); Calcium 8.7 mg/dL (8.4-10.2); Carbon Dioxide 29 mmol/L (22-29); Chloride 99 mmol/L (96-108); Creatinine Clr Calc Pharmacy 67.7; Estimated Glomerular Filt Rate > 60; Glucose Random 91 mg/dL (60-115); Potassium 3.8 mmol/L (3.3-5.1); Sodium 137 mmol/L (135-145)
--- NOTE | 2020-12-26 15:11 | PC.NURSE ---
pt returned from mri
[2020-12-26 15:24] VITALS: BP 159/85; PULSE 73; RESP 17; TEMP 36.7; O2SAT 97
--- NOTE | 2020-12-26 15:25 | PC.NURSE ---
patient a&ox3, watching tv, neuro intact to baseline, business services officer nsr 75, vss, will continue to monitor.
[2020-12-26 16:26] VITALS: BP 153/89; PULSE 74; RESP 16; TEMP 37; O2SAT 98
== END 2020-12-26 17:27 | disposition home or self-care (01) ==
PROVIDERS: Emergency Provider Emergency Medicine Emergency Medical Services; PCP Internal Medicine
DX: R42 Dizziness and giddiness (principal); R11.0 Nausea; R29.700 NIHSS score 0
CPT/HCPCS: 36415; 70551; 80053; 85025; 85060; 85610; 85730; 93005; 96361; 96374; 99284; 99285; J2405

== ENCOUNTER 2021-06-18 08:46 | Outpatient (REF) | payer MEDICARE, MEDICAID, SELFPAY ==
[2021-06-18 10:24] LABS: Cholesterol 137 mg/dL; HDL Cholesterol 46 mg/dL; LDL Cholesterol Calculated 84 mg/dl; Triglycerides 35 mg/dL
[2021-06-18 10:43] LABS: TSH reflex Free T4 1.82 uIU/mL (0.32-4.0)
== END 2021-06-18 08:47 | disposition home or self-care (01) ==
LOC: HO.LAB 08:46
PROVIDERS: PCP Internal Medicine; Visit Provider Internal Medicine
DX: E06.3 Autoimmune thyroiditis (principal); Z82.49 Family history of ischemic heart disease and other diseases of the circulatory system
CPT/HCPCS: 36415; 80061; 84443

== ENCOUNTER 2021-11-07 06:53 | Outpatient (REF) | payer MEDICARE, MEDICAID, SELFPAY ==
[2021-11-07 08:09] LABS: Thyroid Stimulating Hormone 2.59 uIU/mL (0.32-4.0)
== END 2021-11-07 06:54 | disposition home or self-care (01) ==
LOC: HO.LAB 06:53
PROVIDERS: PCP Internal Medicine; Visit Provider Internal Medicine
DX: E06.3 Autoimmune thyroiditis (principal)
CPT/HCPCS: 36415; 84443

== ENCOUNTER 2022-08-12 08:45 | Outpatient (REF) | payer MEDICARE, MEDICAID, SELFPAY ==
[2022-08-12 10:00] LABS: Alanine Aminotransferase 15 U/L (0-40); Albumin Level 4.1 g/dL (3.5-5.0); Alkaline Phosphatase 53 U/L (39-117); Anion Gap 13 (12-20); Aspartate Amino Transferase 20 U/L (5-37); Bilirubin Total 0.9 mg/dL (0.0-1.0); Blood Urea Nitrogen 18 mg/dL (9-16); Calcium 9.4 mg/dL (8.4-10.2); Carbon Dioxide 31 mmol/L (22-29); Chloride 100 mmol/L (96-108); Cholesterol 140 mg/dL; Estimated Glomerular Filt Rate > 60; Glucose Fasting 95 mg/dL (60-99); HDL Cholesterol 45 mg/dL; LDL Cholesterol Calculated 87 mg/dl; Potassium 5.1 mmol/L (3.3-5.1); Sodium 139 mmol/L (135-145); Total Protein 7.6 g/dL (6.5-8.0); Triglycerides 42 mg/dL
[2022-08-12 10:20] LABS: Thyroid Stimulating Hormone 1.25 uIU/mL (0.32-4.0)
== END 2022-08-12 08:46 | disposition home or self-care (01) ==
LOC: HO.LAB 08:45
PROVIDERS: PCP Internal Medicine; Visit Provider Internal Medicine
DX: Z00.00 Encounter for general adult medical examination without abnormal findings (principal); E06.3 Autoimmune thyroiditis
CPT/HCPCS: 36415; 80053; 80061; 84443

== ENCOUNTER 2023-08-25 08:56 | Outpatient (REF) | payer MEDICARE, MEDICAID, SELFPAY ==
[2023-08-25 10:13] LABS: Alanine Aminotransferase 14 U/L (0-40); Albumin Level 3.9 g/dL (3.5-5.0); Alkaline Phosphatase 53 U/L (39-117); Anion Gap 14 (12-20); Aspartate Amino Transferase 20 U/L (5-37); Bilirubin Total 1.1 mg/dL (0.0-1.0); Blood Urea Nitrogen 16 mg/dL (9-16); Calcium 9.3 mg/dL (8.4-10.2); Carbon Dioxide 28 mmol/L (22-29); Chloride 100 mmol/L (96-108); Cholesterol 137 mg/dL (<200); Estimated Glomerular Filt Rate > 60; Glucose Fasting 94 mg/dL (60-99); HDL Cholesterol 43 mg/dL (>40); LDL Cholesterol Calculated 86 mg/dL (<100); Potassium 4.8 mmol/L (3.3-5.1); Sodium 137 mmol/L (135-145); Total Protein 8.1 g/dL (6.5-8.0); Triglycerides 44 mg/dL (<150)
[2023-08-25 10:28] LABS: Thyroid Stimulating Hormone 1.39 uIU/mL (0.32-4.0)
== END 2023-08-25 08:57 | disposition home or self-care (01) ==
LOC: HO.LAB 08:56
PROVIDERS: PCP Internal Medicine; Visit Provider Internal Medicine
DX: I10 Essential (primary) hypertension (principal); E06.3 Autoimmune thyroiditis
CPT/HCPCS: 36415; 80053; 80061; 84443

== ENCOUNTER 2023-08-27 16:34 | Outpatient (AMB) | payer MEDICARE, MEDICAID, SELFPAY ==
--- NOTE | 2023-08-27 16:37 | A.OFFPC_ITS ---
Vital Signs 08/27/23 16:47 Height 5 ft 3 in Weight 140 lb BMI 24.8 BP 132/80 Blood Pressure Location Lt brachial Position Sitting Pulse 67 Pulse Source Pulse Oximeter Pulse Oximetry (%) 97 Oxygen Delivery Method Room Air Intake Visit Reasons: bp f/ u Intake Note: Patient here for a follow up BP Nib Adjuster Required: No Accompanied by: Brother Allergies No Known Allergies [No Known Allergies*] Allergy (Unknown, Verified 08/27/23 16:58) NKA Medication List - Last Reconciled 08/27/23 by Nasima Costa MD amlodipine 2.5 mg PO DAILY 90 days Tobacco use date assessed: 03/26/23 Dental Screening Dental Screen Date: 08/27/23 Did you have a dental visit in the last 12 months?: Yes Did you have a dental problem in the last 6 months where you did not have access to dental care?: No Was dental information given to patient?: Patient has dentist HPI HPI Comments History of Present Illness Details This is a 58 year male that comes accompanied by his brother for follow-up on his hypertension and autoimmune thyroiditis. Blood pressure stable. Blood work was discussed and TSH is normal. No chest pain or shortness of breath. [facility] Medical History Physical exam Thrombocytopenia Vertigo HTN (hypertension) Testicle cancer Hearing loss Developmental delay, mild Autoimmune thyroiditis Bicytopenia [place] Family history of hypertension Surgical History H/O arthroscopic knee surgery History of orchiectomy History of neck surgery History of cholecystectomy History of tonsillectomy Family History Father Lung cancer Hypertension Mother Hypertension Emphysema lung Paternal Grandfather Cancer Social History Household Members: Family Housing: House Alcohol intake: never Patient Tobacco Use Status: Never used Tobacco e-Cigarette/Vaping Use: Never Used Second Hand Smoke Exposure: No service: No Current occupational status: employed Current occupational exposures/hazards: No Cognitive needs: No Hearing needs: Yes Vision needs: No Questionnaire Thrive Questionnaire Date Thrive assessed: 03/26/23 PHUC-7 AMB Questionnaire PHUC-7 Date PHUC - 7 assessed: 03/26/23 Source: Developed by Drs. Suresh Zhao, Maddy Wolf, Emmanuel Ortega and colleagues, with an educational makenzie from [employer]. Review of Systems Const All systems reviewed & are unremarkable except as noted in HPI and below Eyes Reports no additional complaints, Denies change in vision and Denies other visual disturbances Card Denies chest pain at rest, Denies chest pain with activity, Denies edema, Denies irregular heart rhythm, Denies claudication, Denies dyspnea, Denies dyspnea on exertion, Denies orthopnea, Denies paroxysmal nocturnal dyspnea and Denies slow heart rate Resp Denies cough, Denies dyspnea and Denies dyspnea on exertion GI Denies abdominal pain, Denies change in bowel habits, Denies excessive flatus, Denies nausea and Denies vomiting Denies urinary hesitancy, Denies urinary incontinence and Denies urinary urgency Musc Denies abnormal gait, Denies atrophy, Denies deformity and Denies limited range of motion Skin/Breast Denies bleeding lesions, Denies changing lesions and Denies rash Neuro Denies abnormal gait and Denies lack of coordination Physical exam (Primary Care) Vital Signs: Last Vital Signs Pulse 67 08/27/23 16:47 BP 132/80 08/27/23 16:47 Pulse Ox 97 08/27/23 16:47 Oxygen Delivery Method Room Air 08/27/23 16:47 BMI result Body Mass Index 24.8 Tobacco/Smoking Status: Tobacco use Status Tobacco use date assessed 03/26/23 08/27/23 16:38 Patient Tobacco Use Status Never used Tobacco 08/27/23 16:38 e-Cigarette/Vaping Use Never Used 08/27/23 16:38 Thrive Assessment: Date of Thrive Assessment Date Thrive assessed 03/26/23 08/27/23 16:38 Eyes General: appearance normal, both eyes and all related structures Eyelids: Yes eyelids normal Conjunctivae: conjunctivae normal Neck Neck: Yes normal visual inspection and Yes supple Resp Effort & Inspection: normal respiratory effort Auscultation: clear to auscultation bilaterally Cardio Jugular venous distension: no JVD Rate: regular rate Rhythm: regular rhythm Heart sounds: S1 normal heart sound present and S2 normal heart sound present Extrem General: Yes full ROM Assessment and Plan Assessment & Plan (1) Essential hypertension: Code(s): I10 - Essential (primary) hypertension Plan: Continue amlodipine. Blood pressure goal is equal or less than 130/80. (2) Autoimmune thyroiditis: Code(s): E06.3 - Autoimmune thyroiditis Plan: Continue monitor in of TSH. Coding Level of Care Code Est Pt Level 3 (02783) Diagnoses Essential hypertension I10 Autoimmune thyroiditis E06.3 Time Spent (min) 19
[2023-08-27 16:47] VITALS: BP 132/80; PULSE 67; O2SAT 97; BMI 24.8
== END 2023-08-27 17:09 | disposition home or self-care (01) ==
PROVIDERS: Visit Provider Internal Medicine
DX: I10 Essential (primary) hypertension (principal); E06.3 Autoimmune thyroiditis
CPT/HCPCS: 99213

== ENCOUNTER 2024-01-16 08:23 | Outpatient (AMB) | payer MEDICARE, MEDICAID, SELFPAY ==
--- NOTE | 2024-01-16 08:31 | A.OFFVIS_ITS ---
Intake Vital Signs 01/16/24 08:42 Height 5 ft 3 in Weight 130 lb BMI 23.0 BP 145/82 H Blood Pressure Location Lt brachial Position Sitting Pulse 130 H Intake Visit Reasons: Colonoscopy screening + cologuard Intake Note: Patient 1st pre colonoscopy screening. Patient denies any GI issues he have a positive Cologuard at his primary care. Also patient is deaf and his brother is with him. Design Technology Professor Required: No Accompanied by: Brother Allergies No Known Allergies [No Known Allergies*] Allergy (Unknown, Verified 12/25/23 08:36) NKA Medication List - Last Reconciled 01/16/24 by Mary Puente PA-C amlodipine 2.5 mg PO DAILY 90 days lorazepam 0.5 mg PO DAILY PRN 1 day HPI HPI Comments History of Present Illness Details Here with his brother/ medicare coordinator/ who he lives A 58 y/o male hx hx testicular cancer- [address] [place] [address]-followed with Dr. Bradshaw-, leukopenia seen in October- all seems well. Referred for positive cologuard- His brother speaks both before him, he is has a good appetite . He has a normal bowel pattern He has no GI complaints No no nausea, vomiting, hematemesis, hematochezia fever or chills PFSH Medical History Physical exam Thrombocytopenia Vertigo HTN (hypertension) Testicle cancer Hearing loss Developmental delay, mild Autoimmune thyroiditis Bicytopenia [place] Family history of hypertension Surgical History H/O arthroscopic knee surgery History of orchiectomy History of neck surgery History of cholecystectomy History of tonsillectomy Family History Father Lung cancer Hypertension Mother Hypertension Emphysema lung Paternal Grandfather Cancer Social History (Updated 01/16/24 @ 08:48 by Mary Puente PA-C) Household Members: Family Housing: House Alcohol intake: never Patient Tobacco Use Status: Never used Tobacco e-Cigarette/Vaping Use: Never Used Second Hand Smoke Exposure: No service: No Current occupational status: employed Current occupation: [employer] Current occupational exposures/hazards: No Cognitive needs: No Hearing needs: Yes Vision needs: No Review of Systems Const All systems reviewed & are unremarkable except as noted in HPI and below ENT Details: deaf Card Denies chest pain and Denies dyspnea Resp Denies dyspnea GI Denies abdominal pain, Denies hematochezia, Denies change in bowel habits, Denies heartburn, Denies diarrhea and Denies nausea Physical Exam Vital Signs: Last Vital Signs Pulse 130 H 01/16/24 08:42 BP 145/82 H 01/16/24 08:42 BMI result Body Mass Index 23.0 Const General: cooperative, healthy appearing, comfortable and no acute distress Orientation/consciousness: patient oriented x3 Limitations: other limitations (hearing impaired) Eyes Sclerae: sclerae normal Resp Effort & Inspection: normal respiratory effort and able to speak in complete sentences Auscultation: clear to auscultation bilaterally, no rales, no rhonchi and no wheezes Cardio Rate: regular rate (Feb) Rhythm: regular rhythm Heart sounds: S1 normal heart sound present and S2 normal heart sound present GI Palpation (GI): Soft to palpation and nontender Auscultation: normal bowel sounds Skin General skin exam: no rashes or lesions noted Neuro General: patient oriented x3 Extrem General: Yes full ROM Psych Appearance: grossly normal and well kempt Affect: normal affect Attitude: cooperative Assessment & Plan Assessment & Plan (1) Positive colorectal cancer screening using Cologuard test: Comment: pleasant hearing impaired 58 y/o M- No GI complaints Reviewed Cologuard, proximally 13% false positive, results may be associated with colon polyps or hemorrhoids, as well as malignantcy Code(s): R19.5 - Other fecal abnormalities Plan: colonoscopy Plan cologuard MG prep Orders: Orders Colonoscopy - GI Use Only Today R19.5 - Other fecal abnormalities Medications: New polyethylene glycol 3350 (Miralax) Take as directed by mouth the day before your procedure. 238 grams PO ONCE 1 day PRN 238 grams 0RF laxative effect bisacodyl (Dulcolax (bisacodyl)) Day before procedure @ 12 noon Take 4 tablets by mouth followed by large glass of water 20 mg (4 x 5 mg) PO ONCE 1 day PRN 4 tabs 0RF colonoscopy prep Z12.11 - Encounter for screening for malignant neoplasm of colon Patient Instructions: screening colonoscopy for positive Cologuard MiraLax Gatorade prep, reviewed literature Encouraged to call questions or concerns Brother /computer designer present/supportive Coding Level of Care Code New Pt Level 3 (47969) Diagnoses Positive colorectal cancer screening using Cologuard test R19.5 Time Spent (min) 30
[2024-01-16 08:42] VITALS: BP 145/82; PULSE 130; BMI 23.0
== END 2024-01-16 09:06 | disposition home or self-care (01) ==
PROVIDERS: PCP Internal Medicine; Visit Provider Physician Assistant
DX: R19.5 Other fecal abnormalities (principal)
CPT/HCPCS: 99203

== ENCOUNTER → 2024-01-16 08:23 | Outpatient (BNVA) | payer MEDICARE, MEDICAID, SELFPAY | PROVIDERS: PCP Internal Medicine; Visit Provider Physician Assistant | DX: R19.5 Other fecal abnormalities (principal) | CPT/HCPCS: 99202 ==

== ENCOUNTER 2024-03-27 16:44 | Outpatient (AMB) | payer MEDICARE, MEDICAID, SELFPAY ==
--- NOTE | 2024-03-27 17:00 | A.OFFPC_ITS ---
Vital Signs 03/27/24 17:01 Height 5 ft 3 in Weight 140 lb 2 oz BMI 24.8 BP 130/80 Blood Pressure Location Lt brachial Position Sitting Intake Visit Reasons: pe Intake Note: Patient here for a physical exam Senior Asset Manager Required: No Accompanied by: Brother Allergies No Known Allergies [No Known Allergies*] Allergy (Unknown, Verified 03/27/24 17:06) NKA Medication List - Last Reconciled 03/27/24 by Nasima Costa MD amlodipine 2.5 mg PO DAILY 90 days bisacodyl (Dulcolax (bisacodyl)) 20 mg (4 x 5 mg) PO ONCE PRN 1 day polyethylene glycol 3350 (Miralax) 238 grams PO ONCE PRN 1 day Tobacco use date assessed: 03/27/24 Dental Screening Dental Screen Date: 03/27/24 Did you have a dental visit in the last 12 months?: Yes Did you have a dental problem in the last 6 months where you did not have access to dental care?: No Was dental information given to patient?: Patient has dentist HPI HPI Comments History of Present Illness Details This is a 58-year-old male with thrombocytopenia and history of seminoma that comes accompanied by his brother for his physical exam. He is deaf mute. Had positive Cologuard and will have colonoscopy next month. Thrombocytopenia is follow by Hematology-Oncology as well as history of seminoma. Denies any chest pain or shortness of breath. Has been having elevated blood pressure and I will increase amlodipine. [facility], [facility] Medical History (Updated 03/27/24 @ 18:15 by Nasima Costa MD) Physical exam Thrombocytopenia Vertigo HTN (hypertension) Testicle cancer Hearing loss Developmental delay, mild Autoimmune thyroiditis Bicytopenia Seminoma Family history of hypertension Surgical History H/O arthroscopic knee surgery History of orchiectomy History of neck surgery History of cholecystectomy History of tonsillectomy Family History Father Lung cancer Hypertension Mother Hypertension Emphysema lung Paternal Grandfather Cancer Social History Household Members: Family Housing: House Alcohol intake: never Patient Tobacco Use Status: Never used Tobacco e-Cigarette/Vaping Use: Never Used Second Hand Smoke Exposure: No service: No Current occupational status: employed Current occupation: [employer] Current occupational exposures/hazards: No Cognitive needs: No Hearing needs: Yes Vision needs: No Questionnaire PHQ-9 Over the last 2 weeks, how often have you been bothered by any of the following problems? 1. Little interest or pleasure in doing things: not at all 2. Feeling down, depressed, or hopeless: not at all 3. Trouble falling or staying asleep, or sleeping too much: not at all 4. Feeling tired or having little energy: not at all 5. Poor appetite or overeating: not at all 6. Feeling bad about yourself - or that you are a failure or have let yourself or your family down: not at all 7. Trouble concentrating on things, such as reading the newspaper or watching t elevision: not at all 8. Moving or speaking so slowly that other people could have noticed. Or the opposite - being so fidgety or restless that you have been moving around a lot more than usual: not at all 9. Thoughts that you would be better off or of hurting yourself in some way: not at all Total score: 0 Depression Screening Interpretation: Negative Depression Screening Done: Yes 83513 - PHQ-9 Billing: Yes Source: Developed by Drs. Suresh Zhao, Maddy Wolf, Emmanuel Ortega and colleagues, with an educational makenzie from [employer]. Thrive Questionnaire Date Thrive assessed: 03/27/24 I am a: Patient What is your living situation today?: I have a steady place to live Within the past 12 months, did the food you bought not last and you didn't have the money to get more?: Never true Within the past 12 months, did you worry whether your food would run out before you got money to buy more?: Never true Do you have trouble paying for medicines?: No Do you have trouble getting transportation to medical appointments?: No Do you have trouble paying your heating and electricity bill?: No Do you have trouble taking care of your child, family member or friend?: No Do you have trouble with day-to-day activities such as bathing, preparing meals, shopping, managing finances, etc.?: No Are you currently unemployed and looking for a job?: No Are you interested in more education?: No Please select the resources that you would like help with: None Currently or been in a relationship where the following occur: no concerns reported THRIVE Score: 0 AUDIT C Alcohol Use Questionnaire (AUDIT-C) 1. How often do you have a drink containing alcohol?: Never Total Score: 0 PHUC-7 AMB Questionnaire PHUC-7 Date PHUC - 7 assessed: 03/27/24 Feeling nervous, anxious, or on edge: 0 = Not at all Not being able to stop or control worryin = Not at all Worrying too much about different things: 0 = Not at all Trouble relaxin = Not at all Being so restless that it is hard to sit still: 0 = Not at all Becoming easily annoyed or irritable: 0 = Not at all Feeling afraid as if something awful might happen: 0 = Not at all Total PHUC-7 score (0-4 normal; 5-9 mild; 10-14 moderate; 15-21 severe): 0 Source: Developed by Drs. Suresh Zhao, Maddy Wolf, Emmanuel Ortega and colleagues, with an educational makenzie from [employer]. PHUC-7 Assessment Billing PHUC-7 Assessment Tool: PHUC-7 Assessment 77096 Review of Systems Const All systems reviewed & are unremarkable except as noted in HPI and below Card Denies chest pain at rest, Denies chest pain with activity, Denies edema, Denies irregular heart rhythm, Denies claudication, Denies dyspnea, Denies dyspnea on exertion, Denies orthopnea, Denies paroxysmal nocturnal dyspnea and Denies slow heart rate Resp Denies cough, Denies dyspnea and Denies dyspnea on exertion GI Denies abdominal pain, Denies change in bowel habits, Denies excessive flatus, Denies nausea and Denies vomiting Physical exam (Primary Care) Vital Signs: Last Vital Signs BP 130/80 03/27/24 17:01 BMI result Body Mass Index 24.8 Tobacco/Smoking Status: Tobacco use Status Tobacco use date assessed 03/27/24 03/27/24 17:04 Patient Tobacco Use Status Never used Tobacco 03/27/24 17:04 e-Cigarette/Vaping Use Never Used 03/27/24 17:04 PHQ-9: PHQ-9 Score PHQ-9: Total score 0 03/27/24 17:09 Depression Screening Interpretation: Negative Thrive Assessment: Date of Thrive Assessment Date Thrive assessed 03/27/24 03/27/24 17:04 Currently or been in a relationship where the following occur: no concerns reported Const Orientation/consciousness: patient oriented x3 HENMT Head: Yes normal to inspection, Yes normocephalic and Yes atraumatic Ears: external ears normal Eyes General: appearance normal, both eyes and all related structures Eyelids: Yes eyelids normal Conjunctivae: conjunctivae normal Neck Neck: Yes normal visual inspection and Yes supple Resp Effort & Inspection: normal respiratory effort Auscultation: clear to auscultation bilaterally Cardio Jugular venous distension: no JVD Rate: regular rate Rhythm: regular rhythm Heart sounds: S1 normal heart sound present and S2 normal heart sound present GI Inspection: Yes normal to inspection Palpation (GI): Soft to palpation and nontender Auscultation: normal bowel sounds Skin General skin exam: no rashes or lesions noted Neuro General: patient oriented x3 and no focal motor deficits Extrem General: Yes full ROM Psych Appearance: grossly normal Assessment and Plan Assessment & Plan (1) Physical exam: Code(s): Z00.00 - Encounter for general adult medical examination without abnormal findings Plan: Repeat in a year. (2) Thrombocytopenia: Code(s): D69.6 - Thrombocytopenia, unspecified Plan: Follow-up with Hematology-Oncology. (3) Seminoma: Code(s): C62.90 - Malignant neoplasm of unspecified testis, unspecified whether descended or undescended Plan: Follow-up with Hematology-Oncology. Medications: New amlodipine 5 mg PO DAILY 90 tabs 2RF 90 days Discontinued amlodipine Discontinued Reason: Patient Completed Course 2.5 mg PO DAILY 90 days 90 tabs 1RF I10 - Essential (primary) hypertension Coding Level of Care Code Est Pt Prev Care 40-64y(26516) Diagnoses Physical exam Z00.00 Thrombocytopenia D69.6 Seminoma C62.90 Additional Codes PHUC-7 Assessment Billing - PHUC-7 Assessment Tool: PHUC-7 Assessment 42175 ([id number]) Time Spent (min) 30
[2024-03-27 17:01] VITALS: BP 130/80; BMI 24.8
== END 2024-03-27 17:31 | disposition home or self-care (01) ==
PROVIDERS: PCP Internal Medicine; Visit Provider Internal Medicine
DX: Z00.00 Encounter for general adult medical examination without abnormal findings (principal); D69.6 Thrombocytopenia, unspecified; C62.90 Malignant neoplasm of unspecified testis, unspecified whether descended or undescended
CPT/HCPCS: 99396

== ENCOUNTER 2024-04-14 06:40 | Day surgery (SDC) | payer MEDICARE, MEDICAID, SELFPAY ==
[2024-04-10 08:41] VITALS: BMI 23.0
--- NOTE | 2024-04-10 09:35 | P.CONAN_ITS ---
Documented by User: Rasheeda Bass NP 04/10/24 09:36 HPI - Anesthesia Eval Consult details Narrative: 58yo M for Colonoscopy Follows [facility] [place] for thrombocytopenia, Stage III Seminoma, (Chemo completed 2015) [facility] Active Problems Active Problems: All Active Problems Physical exam (Acute) Positive colorectal cancer screening using Cologuard test (Acute) Essential hypertension (Acute) Elevated blood pressure reading without diagnosis of hypertension (Acute) Physical exam (Acute) Thrombocytopenia (Acute) Vertigo (Acute) Seminoma (Acute) Hearing loss (Acute) Developmental delay, mild (Acute) Autoimmune thyroiditis (Acute) Bicytopenia (Acute) Family history of hypertension (Acute) Past Medical History Medical History Physical exam Thrombocytopenia Vertigo HTN (hypertension) Testicle cancer Hearing loss Developmental delay, mild Autoimmune thyroiditis Bicytopenia Seminoma Family history of hypertension Family History Family History Father Lung cancer Hypertension Mother Hypertension Emphysema lung Paternal Grandfather Cancer Surgical History Surgical History H/O arthroscopic knee surgery History of orchiectomy History of neck surgery History of cholecystectomy History of tonsillectomy Social History Social History Household Members: Family Housing: House Alcohol intake: never Patient Tobacco Use Status: Never used Tobacco e-Cigarette/Vaping Use: Never Used Second Hand Smoke Exposure: No Use of substances other than those prescribed or required for medical reasons: No Are you DNR?: No Advance Directives: No Advance Directives Information Provided: Yes service: No Current occupational status: employed Current occupation: [employer] Current occupational exposures/hazards: No Cognitive needs: No Hearing needs: Yes Vision needs: No Meds Allergies Allergy/AdvReac Type Severity Reaction Status Date / Time No Known Allergies Allergy Unknown NKA Verified 03/27/24 17:06 [No Known Allergies*] Exam Height,Weight and Vital Signs: Height 5 ft 3 in Weight 58.967 kg Pertinent Lab Results Pertinent Lab Results: Laboratory Tests 12/25/23 08:33 WBC 3.3 L Hgb 15.0 Hct 43.6 Plt Count 127 L D Assessment and Plan Assessment Anesthesia Assessment: Chart Reviewed Documented by User: Hosea Perez MD 04/14/24 07:48 PMFSH Past Medical History Medical History Physical exam Thrombocytopenia Vertigo HTN (hypertension) Testicle cancer Hearing loss Developmental delay, mild Autoimmune thyroiditis Bicytopenia Seminoma Family history of hypertension Family History Family History Father Lung cancer Hypertension Mother Hypertension Emphysema lung Paternal Grandfather Cancer Family history of problems with anesthesia: No Surgical History Surgical History H/O arthroscopic knee surgery History of orchiectomy History of neck surgery History of cholecystectomy History of tonsillectomy History of Problems with Anesthesia: No Social History Social History Household Members: Family Housing: House Alcohol intake: never Patient Tobacco Use Status: Never used Tobacco e-Cigarette/Vaping Use: Never Used Second Hand Smoke Exposure: No Use of substances other than those prescribed or required for medical reasons: No Are you DNR?: No Advance Directives: No Advance Directives Information Provided: Yes service: No Current occupational status: employed Current occupation: [employer] Current occupational exposures/hazards: No Cognitive needs: No Hearing needs: Yes Vision needs: No Meds Allergies Allergy/AdvReac Type Severity Reaction Status Date / Time No Known Allergies Allergy Unknown NKA Verified 03/27/24 17:06 [No Known Allergies*] Exam Airway Mallampati Class: II TM Dist: >3cm Neck ROM: Full Partial: Upper and Lower Loose/Missing/Broken Teeth: No Heart: rrr Lungs: cta Assessment and Plan Assessment Anesthesia Assessment: Anesthesia Plan Discussed Final Anesthetic Review Family History of Problems with Anesthesia: No History of Problems with Anesthesia: No NPO: Yes ASA Class: II Final Preanesthetic Review: No Changes in Pt Med Stat, Meds/Allgs Chart Reviewed, Consent Obtained/Reviewed and Anes Risks/Benef Reviewed Patient Risk: Intermediate Procedure Risk: Intermediate Anesthetic Plan Anesthetic Plan: TIVA Disposition: Standard PACU
[2024-04-14 07:27] VITALS: BP 149/81; PULSE 74; RESP 16; TEMP 37; O2SAT 98
[2024-04-14] MEDS: Lactated Ringers 1,000 ML 100 ML IVCONT (07:37)
--- NOTE | 2024-04-14 07:40 | MHC.SHP ---
Pre-Procedural Eval Section A - 24 Hr Update-Section A only Date of Service: 04/14/24 The patient is an INPATIENT: No The patient has been examined within 24 hours of the surgical procedure. The History & Physical has been completed within 30 days and I have reviewed it.: No Section B - Complete if H&P > 30 days Chief Complaint: Other fecal abnormalities Relevant Family History (Specify if Yes): No Relevant Social History: None Present Medications: see Short Stay Collaborative assessment Medical History: Significant History (Thrombocytopenia Vertigo HTN (hypertension) Testicle cancer Hearing loss Developmental delay, mild Autoimmune thyroiditis Bicytopenia Seminoma) History of Previous Operations: Relevant previous surgery/procedure and date(s) (H/O arthroscopic knee surgery History of orchiectomy History of neck surgery History of cholecystectomy History of tonsillectomy) Allergies: Allergies Allergy/AdvReac Type Severity Reaction Status Date / Time No Known Allergies Allergy Unknown NKA Verified 03/27/24 17:06 [No Known Allergies*] Review of Systems Sugical H&P ROS: Negative: Cardiovascular and Respiratory and Yes, Specify: Constitution (devlopmental delay, hard of hearing) Exam Surgical H&P Exam: Normal: Heart, Normal: Lungs, Normal: Extremities and Normal: Abdomen Plan Diagnosis/Plan: Unchanged I have reviewed the history and physical and performed a pertinent physical examination on my patient. No changes have occurred unless specified. Time Spent With Patient Time: Total time managing care of this patient today ____ minutes.
--- NOTE | 2024-04-14 09:21 | HO.OPN-COLON ---
Colonoscopy Operative Note Operative Note Date of Service: 04/14/24 Narrative: COLONOSCOPY TILL CECUM WITH BIOPSIES, SNARE POLYPECTOMY, SUBMUCOSAL INJECTION AND HEMOCLIP PLACEMENT Pre-op diagnosis: Colon cancer screening, (first colonoscopy). Post-op diagnosis:? Mass/large polyp AC, Colon polyps, Diverticulosis, hemorrhoids Endoscopist:? Jose Cruz Olsen MD Anesthesia:?MAC Consent: Indications for the procedure and potential complications of bleeding, perforation, reaction to medications and missed diagnosis were discussed with the patient and informed consent was obtained. Instrument: Olympus PCF H 190 L variable stiffness pediatric colonoscope Monitoring: Vital signs and clinical assessment, intermittent blood pressure monitoring, continuous EKG monitoring, Pulse oximetry and Carbon Dioxide monitoring were done throughout the procedure. Please see anesthesia flowsheet. Colon withdrawl time was 25 minutes. Procedure: The patient was placed in the left lateral decubitis position and pre-procedure medications were administered. After a digital rectal examination of the ano-rectum, the video colonoscope was inserted into the rectum and advanced through the colon to the cecum. The colonoscope was slowly withdrawn in a retrograde panoramic fashion and the colon mucosa was carefully examined including a retroflexed view of the rectum. Findings and interventions are described below. Procedure Difficulty: without difficulty Findings: Terminal Ileum: Not evaluated Cecum: Normal Ascending Colon: A large polypoidal mass from 65 to 70 cms in the proximal ascending colon covering 60% of the colon circumference. Multiple biopsies were obtained and area was marked by Regi ink injected proximal to the lesion. A 12-15 mm sessile polyp in the mid AC - removed with a hot snare. Scattered moderate diverticulosis throughout the entire colon Transverse Colon: Scattered moderate diverticulosis throughout the entire colon Descending Colon: Scattered moderate diverticulosis throughout the entire colon Sigmoid Colon: A 12 - 15 mm sessile polyp at 25 cms - removed with a hot snare. Scattered moderate diverticulosis throughout the entire colon Rectum: A 15 to 18 mm pedunculated polyp on a short pedicle. Polyp was removed with a hot snare and polypectomy site was closed with 1 hemoclip Ano-rectum: Small internal hemorrhoids Colon preparation: Good after some irrigation. [place] Bowel Preparation Scale Right colon; 2 Transverse colon: 2 Left colon; 2 (0 = Unprepared colon segment with mucosa not seen due to solid stool that cannot be cleared. 1 = Portion of mucosa of the colon segment seen, but other areas of the colon segment not well seen due to staining, residual stool and/or opaque liquid. 2 = Minor amount of residual staining, small fragments of stool and/or opaque liquid, but mucosa of colon segment seen well. 3 = Entire mucosa of colon segment seen well with no residual staining, small fragments of stool or opaque liquid) Impression and Post Procedure Diagnosis: Colonoscopy Findings: A large polypoidal mass from 65 to 70 cms in the proximal ascending colon covering 60% of the colon circumference. Multiple biopsies were obtained and area was marked by Regi ink injected proximal to the lesion. (Biopsies showed tubulovillous adenoma) Three medium sized polyps were removed Moderate diverticulosis seen in the entire colon small hemorrhoids on retroflexed exam. Plan: Pt has a FU appointment on 05/21/24 [address] and referral to General Surgery for removal of right colon mass and repeat Colonoscopy in 6 to 12 months if polyps are adenomatous. Above findings were reviewed with the patient and relevant handouts were given and the discharge area. BIOPSIES SHOWED: A. Colon, ascending mass at 55 cm, biopsy: Tubulovillous adenoma; negative for high-grade dysplasia. B. Colon, ascending, polypectomy: Tubular adenoma; negative for high-grade dysplasia. C. Colon, sigmoid at 25 cm, polypectomy: Tubular adenoma; negative for high-grade dysplasia. D. Colon, polyp at 10 cm, polypectomy: Tubular adenoma; negative for high-grade dysplasia; margins negative 04/17/24 Pt's brother, Wilfrido, was called and above results were reviewed with him.
[2024-04-14 09:24] VITALS: BP 81/46; PULSE 56; RESP 12; TEMP 36.1; O2SAT 98
[2024-04-14 09:43] VITALS: BP 119/69; PULSE 60; RESP 18; TEMP 36.1; O2SAT 100
== END 2024-04-14 10:21 | disposition home or self-care (01) ==
PROVIDERS: PCP Internal Medicine; Visit Provider Internal Medicine Gastroenterology
PROC: 0DJD8ZZ Inspection of Lower Intestinal Tract, Via Natural or Artificial Opening Endoscopic (ICD-10-PCS; CPT 45378; principal; 2024-04-14 08:20)
DX: R19.5 Other fecal abnormalities (principal); D12.2 Benign neoplasm of ascending colon; D12.5 Benign neoplasm of sigmoid colon; D12.8 Benign neoplasm of rectum; K57.30 Diverticulosis of large intestine without perforation or abscess without bleeding; K64.8 Other hemorrhoids; I10 Essential (primary) hypertension; Z79.899 Other long term (current) drug therapy
CPT/HCPCS: 45385; 45380; 45381; 88305; J2704

== ENCOUNTER → 2024-04-14 06:40 | Outpatient (BNV) | payer MEDICARE, MEDICAID, SELFPAY | PROVIDERS: PCP Internal Medicine; Visit Provider Internal Medicine Gastroenterology | DX: Z12.11 Encounter for screening for malignant neoplasm of colon (principal); D12.2 Benign neoplasm of ascending colon; D12.5 Benign neoplasm of sigmoid colon; K64.8 Other hemorrhoids; K57.90 Diverticulosis of intestine, part unspecified, without perforation or abscess without bleeding | CPT/HCPCS: 45380; 45381; 45385 ==

== ENCOUNTER 2024-04-30 15:15 | Outpatient (REF) | payer MEDICARE, MEDICAID, SELFPAY ==
[2024-04-30 17:52] LABS: Blood Urea Nitrogen 16 mg/dL (9-16); Estimated Glomerular Filt Rate > 60
== END 2024-04-30 15:16 | disposition home or self-care (01) ==
LOC: HO.LAB 15:15
PROVIDERS: PCP Internal Medicine; Referring Provider Internal Medicine Gastroenterology; Visit Provider Surgery
DX: D12.2 Benign neoplasm of ascending colon (principal)
CPT/HCPCS: 36415; 82565; 84520; 99202

== ENCOUNTER 2024-04-30 15:15 | Outpatient (AMB) | payer MEDICARE, MEDICAID, SELFPAY ==
[2024-04-30 15:17] VITALS: BP 148/70; PULSE 60; BMI 25.2
--- NOTE | 2024-04-30 15:17 | MHC.OFFVIS ---
Vital Signs 04/30/24 15:17 Height 5 ft 3 in Weight 142 lb BMI 25.2 BP 148/70 H Blood Pressure Location Rt brachial Position Sitting Pulse 60 Intake Visit Reasons: tubulovillous adenoma Intake Note: This patient was referred by Dr. Olsen for an assessment for tubulovillous adenoma. Patient's guardian c/o; reports no complaints. Boiler Setter Required: No Accompanied by: Guardian Allergies No Known Allergies [No Known Allergies*] Allergy (Unknown, Verified 04/30/24 15:27) NKA Medication List - Last Reconciled 04/30/24 by Markos Dubon MD amlodipine 5 mg PO DAILY 90 days HPI HPI tubulovillous adenoma: Details: 58-year-old male referred for a large polyp in the right colon. He is mentally challenged and is being cared for by his younger brother. He underwent Cologuard testing which was positive so he had undergone colonoscopy with Dr. Olsen last 04/14/2024. He was noted to have a large polypoid mass in the proximal ascending colon and biopsies of this had shown a tubulovillous adenoma. This good not removed endoscopically There were other smaller polyps that were removed which were adenomas on pathology. In view of the large tubulovillous adenoma in the right colon, referred to me for surgical resection He apparently does not have any eye complaints He is also hearing impaired and lives with his brother Wilfrido. His brother is his primary caregiver as well as healthcare proxy. [facility] Medical History Physical exam Thrombocytopenia Vertigo HTN (hypertension) Testicle cancer Hearing loss Developmental delay, mild Autoimmune thyroiditis Bicytopenia Seminoma Family history of hypertension Surgical History H/O arthroscopic knee surgery History of orchiectomy History of neck surgery History of cholecystectomy History of tonsillectomy Family History Father Lung cancer Hypertension Mother Hypertension Emphysema lung Paternal Grandfather Cancer Social History Household Members: Family Housing: House Alcohol intake: never Patient Tobacco Use Status: Never used Tobacco e-Cigarette/Vaping Use: Never Used Second Hand Smoke Exposure: No service: No Current occupational status: employed Current occupation: [employer] Current occupational exposures/hazards: No Cognitive needs: No Hearing needs: Yes Vision needs: No Review of Systems Const Denies chills and Denies fever(s) Card Denies chest pain, Denies dyspnea and Denies dyspnea on exertion Resp Denies cough, Denies dyspnea and Denies dyspnea on exertion GI Denies hematochezia and Denies change in bowel habits Denies hematuria and Denies difficulty urinating Musc Denies back pain and Denies limited range of motion Neuro Denies focal weakness and Denies convulsions Psych Denies depression and Denies mood swings Physical Exam Vital Signs: Last Vital Signs Pulse 60 04/30/24 15:17 BP 148/70 H 04/30/24 15:17 BMI result Body Mass Index 25.2 Const General: comfortable and no acute distress Orientation/consciousness: patient oriented x3 Neck Neck: Yes no lymphadenopathy Resp Auscultation: clear to auscultation bilaterally Cardio Rhythm: regular rhythm GI Palpation (GI): Soft to palpation, nontender and no guarding Neuro General: patient oriented x3 Assessment & Plan Assessment & Plan (1) Mass of colon: Code(s): K63.89 - Other specified diseases of intestine Category: Medical Plan: His colonoscopy done by Dr. Olsen showed a large polyp that was endoscopically removable. Biopsies of these and showed a tubulovillous adenoma I therefore explained to him that it will be best to proceed with right colon resection. I explained to the technique of hand assisted laparoscopic right colon resection. I reviewed the risks including but not limited to bleeding, infections, staple line leak, blood clots, pneumonia, injury to other organs including bowel and urinary tract and blood vessels, conversion to open laparotomy, as well as the benefits and alternatives. I am going to order a CT scan of the abdomen pelvis as well to see if there are any other lesions or any evidence of distant disease. I will review his case with Dr. Olsen who did his colonoscopy. Orders: Orders Blood Urea Nitrogen 04/30/24 K63.89 - Other specified diseases of intestine Creatinine 04/30/24 K63.89 - Other specified diseases of intestine Coding Level of Care Code New Pt Level 4 (78583) Diagnoses Mass of colon K63.89
== END 2024-04-30 15:41 | disposition home or self-care (01) ==
PROVIDERS: PCP Internal Medicine; Referring Provider Internal Medicine Gastroenterology; Visit Provider Surgery
DX: K63.89 Other specified diseases of intestine (principal)
CPT/HCPCS: 99204

== ENCOUNTER 2024-05-19 08:00 | Outpatient (REF) | payer MEDICARE, MEDICAID, SELFPAY ==
--- NOTE | ~2024-05-19 | CT_ITS ---
EXAMINATION: CT ABDOMEN AND PELVIS WITH CONTRAST CLINICAL INFORMATION: Colonoscopy showed a large 5 cm polypoidal mass in the proximal ascending colon covering 60% of the colon circumference. COMPARISON: CT abdomen/pelvis 12/01/2017. TECHNIQUE: Multidetector volumetric images were obtained from the superior aspect of the liver through the pubic symphysis following administration 85 mL of Omnipaque 350 intravenous contrast. Sagittal and coronal reformatted images were obtained on the technologist's workstation. Oral contrast: No This CT examination was performed using dose optimization techniques as appropriate, variously including the following: *Automated exposure control *Adjustment of mA and/or kV according to patient size (this includes techniques or standardized protocols for targeted exams where dose is matched to indication/reason for exam; i.e. extremities or head) *Use of iterative reconstruction technique DLP: 278 mGy-cm FINDINGS: LUNG BASES: The visualized lung bases are unremarkable. Calcified granuloma is present in the left lower lobe. Bibasilar scarring is present. LIVER, GALLBLADDER, AND BILIARY TREE: The liver is normal in size, shape, and attenuation. No focal hepatic lesions seen to suggest metastatic disease. There is no biliary ductal dilatation is present. Status post cholecystectomy. PANCREAS: Unremarkable. SPLEEN: Spleen is mildly enlarged at 12.3 cm. ADRENAL GLANDS: Unremarkable. KIDNEYS AND URETERS: The kidneys are normal in size, shape, and attenuation. No hydronephrosis, hydroureter, or calculi seen. Bilateral renal cysts are present predominantly parapelvic. There is one mass on the right measuring 1.6 cm and 74 Hounsfield units which is new when compared with the prior exam (3:30). A solid renal mass must be the diagnosis of exclusion. No other suspicious renal masses are seen. BLADDER: Unremarkable. GASTROINTESTINAL TRACT: Marked diverticular changes are present in the sigmoid. A sigmoid anastomosis is present without obstruction. In the ascending colon, a mass lesion is seen (3:24 and lara images) measuring about 4 to 5 cm in size. The small and remainder of the large bowel are otherwise unremarkable. The appendix is unremarkable. ABDOMINAL WALL: No significant hernia is appreciated. LYMPH NODES: Normal. VASCULAR: Unremarkable. PELVIC VISCERA: Mild BPH. Seminal vesicles appear normal OSSEOUS STRUCTURES: Some mild generalized osteopenia. No evidence of osseous metastatic disease. CT/CT abdomen pelvis w IV con IMPRESSION: 1. Ascending colon mass without evidence of metastatic disease. 2. New 1.6 cm right renal mass. MRI is recommended for further evaluation. 3. Other incidental findings as described above. Fleischner guidelines were followed.
[2024-05-19] MEDS: iohexoL 350 MG/ML 100 ML INFUS..BTL 85 ML IV (10:12)
[2024-05-19] MEDS: Barium Sulfate Oral (Vanilla) 450 ML ORAL.SUSP 900 ML PO (10:13)
== END 2024-05-19 08:01 | disposition home or self-care (01) ==
LOC: HO.CT 08:00
PROVIDERS: PCP Internal Medicine; Visit Provider Internal Medicine Gastroenterology
DX: K63.89 Other specified diseases of intestine (principal)
CPT/HCPCS: 74177; Q9967

== ENCOUNTER → 2024-05-27 12:53 | Outpatient (BNV) | payer MEDICARE, MEDICAID, SELFPAY | PROVIDERS: Admitting Provider Surgery; PCP Internal Medicine; Visit Provider Internal Medicine Cardiovascular Disease | DX: R94.31 Abnormal electrocardiogram [ECG] [EKG] (principal) | CPT/HCPCS: 93010 ==

== ENCOUNTER 2024-06-03 09:55 | Inpatient (IN) | payer MEDICARE, MEDICAID, SELFPAY ==
--- NOTE | 2024-05-27 | ECG_ITS ---
Test Reason : preop Blood Pressure : / mmHG Vent. Rate : 065 BPM Atrial Rate : 065 BPM P-R Int : 144 ms QRS Dur : 086 ms QT Int : 398 ms P-R-T Axes : 048 042 067 degrees QTc Int : 413 ms Normal sinus rhythm Possible Left atrial enlargement Minimal voltage criteria for LVH, may be normal variant ( Sokolow-Em ) Borderline ECG When compared with ECG of 26-DEC-2020 12:30, Criteria for Septal infarct are no longer Present Referred By: Rasheeda Bass Electronically Signed By:MIRTA CABRERA MD
[2024-05-27 11:55] VITALS: BP 146/78; PULSE 63; RESP 16; O2SAT 98; BMI 24.8
--- NOTE | 2024-05-27 12:15 | HO.ANESPROP2 ---
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 Requires ASL No recent illness No CP/SOB with walking most days PMFSH Active Problems Active Problems: All Active Problems Renal lesion (Acute) Mass of colon (Acute) Physical exam (Acute) Positive colorectal cancer screening using Cologuard test (Acute) Essential hypertension (Acute) Elevated blood pressure reading without diagnosis of hypertension (Acute) Seminoma (Acute) Physical exam (Acute) Thrombocytopenia (Acute) Vertigo (Acute) Hearing loss (Acute) Developmental delay, mild (Acute) Autoimmune thyroiditis (Acute) Bicytopenia (Acute) Family history of hypertension (Acute) Past Medical History Medical History Wears hearing aid in right ear Physical exam Thrombocytopenia Vertigo HTN (hypertension) Testicle cancer Hearing loss Developmental delay, mild Autoimmune thyroiditis Bicytopenia Semin[place] Family history of hypertension Family History Family History Father Lung cancer Hypertension Mother Emphysema lung Hypertension Paternal Grandfather Cancer Brother Slow to wake up after anesthesia PONV (postoperative nausea and vomiting) Family history of problems with anesthesia: No (Brother with PONV and slow to wake) Surgical History Surgical History Hx of colonoscopy (04/14/24) H/O arthroscopic knee surgery History of orchiectomy History of neck surgery History of cholecystectomy History of tonsillectomy History of Problems with Anesthesia: No Social History Social History Household Members: Family Housing: House Are you a primary career development coordinator to a significant other at home: No Do you presently have visiting nurse or other home services: No Alcohol intake: never Patient Tobacco Use Status: Never used Tobacco e-Cigarette/Vaping Use: Never Used Second Hand Smoke Exposure: No Use of substances other than those prescribed or required for medical reasons: No Currently Displaying Signs/Symptoms of Drug Intoxication Withdrawal: No Have you been hit, kicked, punched, or otherwise hurt by someone within the past year? If so, by whom?: No Do you feel safe in your current relationship?: No Current Relationship Are you DNR?: No Advance Directives: No Advance Directives Information Provided: Yes Advance Directives on File: No Do you have a plan to hurt others: No Plan Recently lost weight without trying: No Nutrition Risks: No Nutritional Risk Poor oral hygiene: No service: No Current occupational status: employed Current occupation: [employer] Current occupational exposures/hazards: No Cognitive needs: No Hearing needs: Yes Vision needs: No Meds Allergies Allergy/AdvReac Type Severity Reaction Status Date / Time No Known Allergies Allergy Unknown NKA Verified 06/03/24 06:46 [No Known Allergies*] Exam Height,Weight and Vital Signs: Height 5 ft 3 in Weight 63.503 kg Last Vital Signs Pulse 63 05/27/24 11:55 Resp 16 05/27/24 11:55 BP 146/78 H 05/27/24 11:55 Pulse Ox 98 05/27/24 11:55 O2 Del Method Room Air 05/27/24 11:55 Pertinent Lab Results Pertinent Lab Results: Lab Results 05/27/24 05/27/24 Range/Units 12:46 12:54 WBC 2.9 L (4.8-10.8) X10*3/uL RBC 4.19 L (4.60-5.80) X10*6/uL Hgb 15.4 (14.0-18.0) g/dl Hct 44.4 (42.0-52.0) % MCV 106.0 H (80.0-98.0) fL MCH 36.8 H (27.0-33.0) pg MCHC 34.7 (31.0-36.0) g/dl RDW 12.9 (11.0-16.0) % Plt Count 113 L (160-400) X10*3/uL MPV 9.2 L (9.4-12.4) fL Absolute Nucleated RBC 0.000 (0.0-0.012) X10*3/uL Nucleated RBC % (auto) 0.0 (0.0-0.2) /100WBC Sodium 139 (135-145) mmol/L Potassium 4.0 (3.3-5.1) mmol/L Chloride 100 (96-108) mmol/L Carbon Dioxide 31 H (22-29) mmol/L Anion Gap 12 (12-20) BUN 15 (9-16) mg/dL Creatinine 0.89 (0.5-1.4) mg/dL Estim Creat Clear Calc 71.9 Estimated GFR > 60 Random Glucose 63 (60-115) mg/dL Calcium 9.2 (8.4-10.2) mg/dL Blood Type A Positive Antibody Screen NEGATIVE Narrative Narrative: EKG 05/2024 Vent. Rate : 065 BPM Atrial Rate : 065 BPM P-R Int : 144 ms QRS Dur : 086 ms QT Int : 398 ms P-R-T Axes : 048 042 067 degrees QTc Int : 413 ms Normal sinus rhythm Possible Left atrial enlargement Minimal voltage criteria for LVH, may be normal variant ( Sokolow-Em ) Borderline ECG When compared with ECG of 26-DEC-2020 12:30, Criteria for Septal infarct are no longer Present Airway Mallampati Class: III TM Dist: >3cm Neck ROM: Full Partial: Upper and Lower Loose/Missing/Broken Teeth: Yes (Right upper ~#5 broken) Heart: RRR Lungs: CTAB Assessment and Plan Assessment Anesthesia Assessment: Anesthesia Plan Discussed and PAT Visit Final Anesthetic Review Family History of Problems with Anesthesia: No (Brother with PONV and slow to wake) History of Problems with Anesthesia: No
[2024-05-27 13:57] LABS: Hematocrit 44.4 % (42.0-52.0); Hemoglobin 15.4 g/dl (14.0-18.0); Mean Corpuscular HGB Conc 34.7 g/dl (31.0-36.0); Mean Corpuscular Hemoglobin 36.8 pg (27.0-33.0); Mean Platelet Volume 9.2 fL (9.4-12.4); Platelet Count 113 X10*3/uL (160-400); Red Blood Count 4.19 X10*6/uL (4.60-5.80); Red Cell Distribution Width 12.9 % (11.0-16.0); White Blood Count 2.9 X10*3/uL (4.8-10.8)
[2024-05-27 14:36] LABS: Anion Gap 12 (12-20); Blood Urea Nitrogen 15 mg/dL (9-16); Calcium 9.2 mg/dL (8.4-10.2); Carbon Dioxide 31 mmol/L (22-29); Chloride 100 mmol/L (96-108); Creatinine Clr Calc Pharmacy 71.9; Estimated Glomerular Filt Rate > 60; Glucose Random 63 mg/dL (60-115); Sodium 139 mmol/L (135-145)
[2024-06-03] VITALS (10 sets, daily range): BP systolic 149–181; BP diastolic 72–95; PULSE 71–102; RESP 15–20; TEMP 36.1–37.7; O2SAT 96–100; BMI 24.9
--- NOTE | ~2024-06-03 | CT_ITS ---
EXAMINATION: CT ABDOMEN AND PELVIS WITH CONTRAST CLINICAL INFORMATION: Postoperative vomiting status post right colon resection. COMPARISON: Pre-op CT abdomen and pelvis 05/19/[address] abdomen pelvis 12/02/2018. TECHNIQUE: Multidetector volumetric images were obtained from the superior aspect of the liver through the pubic symphysis following administration 85 mL of Omnipaque 350 intravenous contrast. Sagittal and coronal reformatted images were obtained on the technologist's workstation. Oral contrast: No This CT examination was performed using dose optimization techniques as appropriate, variously including the following: *Automated exposure control *Adjustment of mA and/or kV according to patient size (this includes techniques or standardized protocols for targeted exams where dose is matched to indication/reason for exam; i.e. extremities or head) *Use of iterative reconstruction technique DLP: 443.15 mGy-cm FINDINGS: LUNG BASES: Emphysematous changes are present at the right lung base. A small right pleural effusion is present along with trace left pleural fluid. LIVER, GALLBLADDER, AND BILIARY TREE: The liver is normal in size, shape, and attenuation. No focal hepatic lesion or biliary ductal dilatation is present. The gallbladder is surgically absent. PANCREAS: Unremarkable. SPLEEN: Spleen is enlarged at 13.5 cm. ADRENAL GLANDS: Unremarkable. KIDNEYS AND URETERS: The kidneys are normal in size, shape, and attenuation. No hydronephrosis, hydroureter, or calculi seen. Bilateral renal cysts are again seen, predominantly parapelvic. There is one mass on the right which measures 1.6 cm and 60 Hounsfield units which was seen on the recent preoperative study but was new when compared to CT from 12/02/2018. This is suspicious for a solid renal neoplasm as stated previously. Precontrast and postcontrast renal MRI is still recommended for further evaluation. BLADDER: Unremarkable. GASTROINTESTINAL TRACT: Status post interval right hemicolectomy. There is colonic diverticulosis in the remaining sigmoid without evidence of diverticulitis. The anastomosis between the colon and small bowel appears widely patent but there is marked dilatation of all small bowel loops, the largest measuring 4.8 cm. No significant free intraperitoneal air is seen. ABDOMINAL WALL: No significant hernia is appreciated. LYMPH NODES: No retroperitoneal lymphadenopathy. VASCULAR: Calcific atherosclerotic changes are present in the aorta and iliofemoral vessels. There is no evidence of an abdominal aortic aneurysm. PELVIC VISCERA: There is [id number] BPH. Seminal vesicles are normal. OSSEOUS STRUCTURES: Marked degenerative changes are present throughout the spine. CT/CT abdomen pelvis w IV con IMPRESSION: 1. Status post right hemicolectomy with marked dilatation of all small bowel loops. The anastomosis between the colon and small bowel appears widely patent. Findings are most consistent with a postoperative ileus as no obstructing lesion is seen. 2. Incidental note made of emphysema, small right pleural effusion, cholecystectomy, splenomegaly, colonic diverticulosis, [id number] BPH and degenerative changes in the spine. 3. There is a 1.6 cm right renal mass which was seen on the recent preoperative study which was new when compared to CT from 12/02/2018. This is suspicious for a solid renal neoplasm. Precontrast and postcontrast renal MRI is still recommended for further evaluation. Fleischner guidelines were followed.
--- NOTE | ~2024-06-03 | XR_ITS ---
EXAMINATION: XR CHEST CLINICAL INFORMATION: Nasogastric tube present placement COMPARISON: None available. TECHNIQUE: Frontal view of the chest was obtained. FINDINGS: There is nasogastric tube in the esophagus, not well positioned to need to be withdrawn or progress towards the stomach. Both nasogastric tube port and tip are in the mid/distal. XR/XR chest 1V IMPRESSION: Ill positioned nasogastric tube can't be used
[2024-06-03] MEDS: Lactated Ringers 1,000 ML 100 ML IVCONT ×2 (06:53→19:57)
--- NOTE | 2024-06-03 07:18 | MHC.SHP ---
Pre-Procedural Eval Section A - 24 Hr Update-Section A only Date of Service: 06/03/24 Section B - Complete if H&P > 30 days Chief Complaint: Other specified diseases of intestine Details of Present Illness: has large polyp in right colon not endoscopically removable Relevant Family History (Specify if Yes): No Relevant Social History: None Present Medications: see Short Stay Collaborative assessment Medical History: No relevant PMH Allergies: Allergies Allergy/AdvReac Type Severity Reaction Status Date / Time No Known Allergies Allergy Unknown NKA Verified 06/03/24 06:46 [No Known Allergies*] Review of Systems Sugical H&P ROS: Negative: Constitution, Cardiovascular, Respiratory, Neurological, Psychiatric, Hem-Onc, Allergic/Immunologic, Gastrointestinal, Genitourinary, Musculoskeletal, Integumentary, Endocrine and Eyes/Ears/Nose/Throat Exam Surgical H&P Exam: Normal: HEENT, Normal: Heart, Normal: Lungs, Normal: Extremities, Normal: Abdomen, Normal: Skin and Normal: Neurological Plan Diagnosis/Plan: Unchanged I have reviewed the history and physical and performed a pertinent physical examination on my patient. No changes have occurred unless specified. Time Spent With Patient Time: Total time managing care of this patient today ____ minutes.
--- NOTE | 2024-06-03 08:04 | P.CONAN_ITS ---
[facility] Active Problems Active Problems: All Active Problems Renal lesion (Acute) Mass of colon (Acute) Physical exam (Acute) Positive colorectal cancer screening using Cologuard test (Acute) Essential hypertension (Acute) Elevated blood pressure reading without diagnosis of hypertension (Acute) [place]in[place] (Acute) Physical exam (Acute) Thrombocytopenia (Acute) Vertigo (Acute) Hearing loss (Acute) Developmental delay, mild (Acute) Autoimmune thyroiditis (Acute) Bicytopenia (Acute) Family history of hypertension (Acute) Past Medical History Medical History Wears hearing aid in right ear Physical exam Thrombocytopenia Vertigo HTN (hypertension) Testicle cancer Hearing loss Developmental delay, mild Autoimmune thyroiditis Bicytopenia [place] Family history of hypertension Functional capacity: independent ambulation Family History Family History Father Lung cancer Hypertension Mother Emphysema lung Hypertension Paternal Grandfather Cancer Brother Slow to wake up after anesthesia PONV (postoperative nausea and vomiting) Family history of problems with anesthesia: No (Brother with PONV and slow to wake) Surgical History Surgical History Hx of colonoscopy (04/14/24) H/O arthroscopic knee surgery History of orchiectomy History of neck surgery History of cholecystectomy History of tonsillectomy History of Problems with Anesthesia: No Social History Social History Household Members: Family Housing: House Are you a primary child care centre manager to a significant other at home: No Do you presently have visiting nurse or other home services: No Alcohol intake: never Patient Tobacco Use Status: Never used Tobacco e-Cigarette/Vaping Use: Never Used Second Hand Smoke Exposure: No service: No Current occupational status: employed Current occupation: [employer] Current occupational exposures/hazards: No Cognitive needs: No Hearing needs: Yes Vision needs: No Meds Allergies Allergy/AdvReac Type Severity Reaction Status Date / Time No Known Allergies Allergy Unknown NKA Verified 06/03/24 06:46 [No Known Allergies*] Active Medications: Current Medications Acetaminophen (Acetaminophen 325 Mg Tablet) 650 mg PO Q6H PRN PRN Reason: Pain, Mild (Pain Scale 1-3), fever or headache Calcium Carbonate (Calcium Carbonate 750 Mg Tab.Chew) 750 mg PO Q4H PRN PRN Reason: Heartburn Lactated Ringer's (Lr) 1,000 mls @ 100 mls/hr IVCONT .Q10H [facility] Last Admin: 06/03/24 06:53 Dose: 100 mls/hr Magnesium Hydroxide (Milk Of Magnesia 30 Ml Oral.Susp) 30 ml PO DAILY PRN PRN Reason: Constipation Melatonin (Melatonin 3 Mg Tablet) 6 mg PO BEDTIME PRN PRN Reason: Insomnia Sodium Chloride (0.9 % Sodium Chloride Flush 3 Ml Syringe) 3 ml IVFLUSH QSHIFT [facility] Exam Height,Weight and Vital Signs: Height 5 ft 3 in Weight 63.775 kg Last Vital Signs Temp 98.7 F 06/03/24 06:23 Pulse 74 06/03/24 06:23 Resp 16 06/03/24 06:23 BP 181/87 H 06/03/24 06:23 Pulse Ox 97 06/03/24 06:23 O2 Del Method Room Air 06/03/24 06:23 Pertinent Lab Results Pertinent Lab Results: Laboratory Tests 05/27/24 05/27/24 12:46 12:54 WBC 2.9 L RBC 4.19 L Hgb 15.4 Hct 44.4 MCV 106.0 H MCH 36.8 H MCHC 34.7 RDW 12.9 Plt Count 113 L MPV 9.2 L Absolute Nucleated RBC 0.000 Nucleated RBC % (auto) 0.0 Sodium 139 Potassium 4.0 Chloride 100 Carbon Dioxide 31 H Anion Gap 12 BUN 15 Creatinine 0.89 Estim Creat Clear Calc 71.9 Estimated GFR > 60 Random Glucose 63 Calcium 9.2 Blood Type A Positive Antibody Screen NEGATIVE Airway TM Dist: >3cm Neck ROM: Full Partial: Upper and Lower Heart: RRR Lungs: CTA Assessment and Plan Assessment Anesthesia Assessment: Anesthesia Plan Discussed Final Anesthetic Review Family History of Problems with Anesthesia: No (Brother with PONV and slow to wake) History of Problems with Anesthesia: No NPO: Yes ASA Class: II Final Preanesthetic Review: Meds/Allgs Chart Reviewed, Consent Obtained/Reviewed and Anes Risks/Benef Reviewed Patient Risk: Intermediate Procedure Risk: Intermediate Anesthetic Plan Anesthetic Plan: GA Disposition: Standard PACU and Inp. Admit - Standard Bed
--- NOTE | 2024-06-03 09:43 | W.PM.OPN ---
Operative Note Operative Note Date of Service: 06/03/24 Narrative: Preop diagnosis: Unresectable right colon polyp Postop diagnosis: Unresectable right colon polyp, extensive adhesions in the right upper quadrant; markedly adherent omentum to the colon Procedure: Hand assisted laparoscopic right colon resection, extensive lysis of adhesions Surgeon: Markos Dubon MD seed laboratory assistant: MONY Curran The patient is a 58-year-old male who had recently undergone screening colonoscopy with note of a large polyp in the right colon that was deemed to be unresectable. 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 I had recommended proceeding with a right colon resection in view of this large polyp. His brother she has healthcare proxy had given consent The patient was brought to the operating room. He was placed supine under general anesthesia via endotracheal tube. A TAP block was done by the anesthesiologist. A Cristobal catheter was inserted A surgical time-out was then done. The patient received Cefotan 2 g IV preoperatively I made a short midline incision at the level of the umbilicus using blade 15. This was carried down through the full-thickness of the skin and subcutaneous fat through the fascia. The fascia was incised. The peritoneum was entered. Through this incision the Mic wound retractor was excision. The GelPort along with the insufflating port was attached to this. The peritoneum was insufflated to a pressure of 15 mm Hg. Laparoscopic combination was done using a 10 mm 30 degree scope. There was note of extensive adhesions in the right upper quadrant from his previous open cholecystectomy With laparoscopic visualization I proceeded to insert a 5 mm port in the gastric area as well as in the the laparoscope was moved to the epigastric port. With laparoscopic visualization I proceeded to then proceed with lysis of adhesions of this extensive fibro- areolar scarring in the right upper quadrant. The operating hand was history of the GelPort. The LigaSure was placed through the left upper quadrant port. The patient was placed in a left side down position. This allowed us to visualize the extensive adhesions in the right upper quadrant. A lot of lysis was done using the LigaSure until were able to completely preoperative entire right upper quadrant of adhesions I was able to therefore visualize the right colon and the hepatic flexure. I proceeded to divide the ligamentous attachments along the white line of Toldt using the LigaSure. A plane of dissection was fine and we are able to follow this to mobilize the entire right colon. We are able to see the duodenal medially and this was the medial limit of our dissection of the mesentery.. There was note of extensive adhesions as well in the area of the appendix so we had to do more lysis of adhesions using the LigaSure I then proceeded to mobilize the hepatic flexure by dividing the rest of the hepatocolic ligaments with the LigaSure. The planes were seen clearly and we proceeded to continue to mobilize the entire hepatic flexure and the proximal transverse colon. There were also extensively adherent omentum to the right colon so we had to do a lot of lysis of adhesions with the LigaSure as well to free this up. By doing so we were able to achieve good visualization of the entire cecum, right colon and the transverse colon proximally. The marking ink was seen on the serosa in the hepatic flexure. We could not however feel an obvious mass. Since we had adequate mobilization of the entire right colon and the proximal transverse colon past the level of the addendum, I then proceeded to desufflate. I pulled up the entire right colon through the Mic wound retractor. I was able to visualize the terminal ileum well along with the entire right colon and the transverse colon. I chose my point of transection proximal distal. I created a mesenteric window in the terminal ileum and used a MAYRA 60 mm stapler to divide this. The point of transection in the mid transverse colon was also chosen. We did a mesenteric window and this was divided with a MAYRA 60 mm stapler. I pulled up the entire right colon and the hepatic flexure. I was able to identify the ileocolic vessel as well as the right colic pedicle. These appeared to be the main pedicle of the area of the tumor. I divided the mesentery using the LigaSure from both proximal distal until I reached the pedicles. I defined each pedicle and applied clamps proximal and distal in a high ligation fashion. I divided the ileocolic pedicle in between clamps and applied ties with Polysorb 2-0 ties. The right colic pedicle near the hepatic flexure was also divided in the same fashion. There was note of good hemostasis from the pedicles. We were careful as to make sure that we had adequate lymphatic basin for oncologic resection. We are able to completely separate the right colon and this was sent for immediate gross exam I proceeded to do the anastomosis of the terminal ileum to the remaining transverse colon. These were positioned [id number]. I opened up the apex of each staple line to enter the lumen. I position each arm of the MAYRA 60 mm stapler into the lumen of the distal ileum as well as the transverse colon. I locked the stapler in place and made sure that there was no bowel caught between the staple line and that we were in the anti mesenteric border. I he had a stapler to create our [id number] anastomosis. I completed the anastomosis by closing the enterotomy with a TA 60 mm stapler. There was note of a serosal tear earlier seen near the [id number] anastomosis so I placed the TA stapler passed this. I examined the staple lines. This all appeared to be intact without any evidence of ischemia. I placed a seromuscular stitch at the crotch of the staple line to release any potential tension I examined the bowel loops proximal distal this and there was no evidence of any ischemia. The anastomotic line appeared to be well vascularized I replaced the anastomosis back into the peritoneal cavity. I applied a [id number] stitch with a Polysorb 3-0 at area adjacent to the staple line which appeared to be oozing a little bit I copiously irrigated and observed for hemostasis. Once hemostasis was confirmed, I proceeded to then position the omentum to overlie the anastomosis. I then closed the fascia with a running Maxon 1 stitch. We replaced the GelPort insufflated. I examined laparoscopically. There was no evidence any bleeding. There was no evidence of any bowel injury . I examined the fascial closure laparoscopically and this appeared to be intact without any bowel loop caught by the sutures . Once hemostasis was confirmed, we then proceeded to insufflate removed the epigastric port. I irrigated the incisions. I closed the skin on all incisions with latesha. Dressings were applied and the procedure was completed. The patient tolerated procedure well. There were no immediate complications. Initial and final counts of sponges and instruments were correct. Estimated blood loss was about 150 cc The patient was extubated without difficulty and transferred to the recovery room with stable vital signs. I went down stairs to review the specimen with the pathologist. The margins appeared to be clear and adequate. The tumor was seen in the right colon. Colon Resection Tumor location: Right colon Extent of lymphovascular resection Right colon (cecum and ascending colon): Ileocolic pedicle and the right colic pedicle were included in a high ligat Pedicle removed: Ileocolic pedicle and the right colic pedicle were included in high ligatio General Surg. - Synoptic Notes Colon Resection Tumor location: Right colon Extent of Lymphovascular Resection: Right colon (cecum and ascending colon): Ileocolic pedicle and the right colic pedicle were included in a high ligat Pedicle removed: Ileocolic pedicle and the right colic pedicle were included in high ligatio
--- NOTE | 2024-06-03 11:17 | PHA.MEDREC ---
Pharmacy Consult ? Medication Reconciliation Pharmacy has reviewed the medication reconciliation completed by nursing.
[2024-06-03] MEDS: oxyCODONE HCl Immed Release 5 MG TABLET PO (11:42)
--- NOTE | 2024-06-03 14:08 | PM.EVENT ---
Event Note Date of Service: 06/03/24 Event Note: Seen postop Status post right colon resection Seems to have good pain control Tolerating clear liquids Good urine output Stable vital signs Dressings dry Continue pain management Await return of GI function The patient's brother Wilfrido in the room, updated, questions answered Time Spent With Patient Time: Total time managing care of this patient today ____ minutes.
[2024-06-03] MEDS: Acetaminophen 1,000 MG/100 ML PIGGYBACK 400 MG IV ×2 (15:26→21:32)
[2024-06-03] MEDS: ondansetron HCL 4 MG/2 ML VIAL IVPUSH (17:55)
[2024-06-04 03:50] VITALS: BP 145/82; PULSE 83; RESP 18; TEMP 36.9; O2SAT 96
[2024-06-04] MEDS: Lactated Ringers 1,000 ML 100 ML IVCONT ×2 (03:59→14:46)
[2024-06-04] MEDS: Acetaminophen 1,000 MG/100 ML PIGGYBACK 400 MG IV ×4 (04:01→21:19)
[2024-06-04 06:30] LABS: Anion Gap 13 (12-20); Blood Urea Nitrogen 11 mg/dL (9-16); Calcium 8.6 mg/dL (8.4-10.2); Carbon Dioxide 25 mmol/L (22-29); Chloride 102 mmol/L (96-108); Creatinine Clr Calc Pharmacy 72.7; Estimated Glomerular Filt Rate > 60; Glucose Fasting 108 mg/dL (60-99); Sodium 136 mmol/L (135-145)
[2024-06-04 06:37] LABS: Basophils Percent Auto 0.3 % (0-2); Hematocrit 37.3 % (42.0-52.0); Hemoglobin 13.3 g/dl (14.0-18.0); Imm Gran Abs Auto 0.05 X10*3/uL (0.00-0.03); Imm Gran Pct Auto 0.7 % (0.0-0.4); Lymphocytes Absolute Auto 0.7 X10*3/uL (1.2-4.9); Lymphocytes Percent Auto 9.8 % (20-40); MANUAL DIFF FLAG NO; Mean Corpuscular HGB Conc 35.7 g/dl (31.0-36.0); Mean Corpuscular Hemoglobin 37.3 pg (27.0-33.0); Mean Corpuscular Volume 104.5 fL (80.0-98.0); Mean Platelet Volume 9.1 fL (9.4-12.4); Monocytes Absolute Auto 0.5 X10*3/uL (0.1-1.2); Monocytes Percent Auto 7.3 % (2-11); Neutrophils Absolute Auto 5.6 x10*3/uL (2.0-8.3); Neutrophils Percent Auto 81.9 % (45-73); Platelet Count 93 X10*3/uL (160-400); Red Blood Count 3.57 X10*6/uL (4.60-5.80); Red Cell Distribution Width 13.2 % (11.0-16.0); White Blood Count 6.9 X10*3/uL (4.8-10.8)
[2024-06-04] MEDS: oxyCODONE HCl Immed Release 5 MG TABLET PO ×3 (07:10→21:18)
[2024-06-04 07:20] VITALS: BP 159/85; PULSE 86; RESP 20; TEMP 37.2; O2SAT 94
--- NOTE | 2024-06-04 07:52 | PM.PNGS ---
Subjective Subjective Date of Service: 06/04/24 <Farrah Curran PA-C - Last Filed: 06/04/24 07:55> 06/04/24 <Markos Dubon MD - Last Filed: 06/04/24 16:33> Interval history: Feels overall well. Minimal pain. OOB and ambulated the halls yesterday. Tolerating liquids and feels hungry. Had loose stools. <Farrah Curran PA-C - Last Filed: 06/04/24 07:55> Physical Exam Vital Signs: Vital Signs: Last Vital Signs Temp 99.0 F 06/04/24 07:20 Pulse 86 06/04/24 07:20 Resp 20 06/04/24 07:20 BP 159/85 H 06/04/24 07:20 Pulse Ox 94 06/04/24 07:20 O2 Del Method Room Air 06/04/24 07:20 O2 Flow Rate 2 06/03/24 10:42 BMI result Body Mass Index 24.9 <Farrah Curran PA-C - Last Filed: 06/04/24 07:55> Const: General: comfortable, no acute distress and alert <Farrah Curran PA-C - Last Filed: 06/04/24 07:55> Orientation/consciousness: patient oriented x3 <Farrah Curran PA-C - Last Filed: 06/04/24 07:55> Resp: Effort & Inspection: normal respiratory effort <Farrah Curran PA-C - Last Filed: 06/04/24 07:55> GI: Inspection: No distended and Yes incision (clean dressing ) <Farrah Curran PA-C - Last Filed: 06/04/24 07:55> Palpation (GI): Soft to palpation, Tenderness to palpation present (GI) (mild incisional) and no guarding <ALBERTO Mayen Last Filed: 06/04/24 07:55> Skin: General skin exam: no rashes or lesions noted <Farrah Curran PA-C - Last Filed: 06/04/24 07:55> Neuro: General: patient oriented x3 and moves all extremities <ALBERTO Mayen Last Filed: 06/04/24 07:55> Objective Data Active Medications Calcium Carbonate (Calcium Carbonate 750 Mg Tab.Chew) 750 mg PO Q4H PRN PRN Reason: Heartburn Heparin Sodium (Porcine) (Heparin Sodium,Porcine 5,000 Unit/Ml Vial) 5,000 unit SUBCUT Q8H [facility] Hydromorphone HCl (Hydromorphone Hcl 0.5 Mg/0.5 Ml Syringe) 0.5 mg IVPUSH Q4H PRN; Protocol PRN Reason: Pain, Severe (Pain Scale 7-10) Lactated Ringer's (Lr) 1,000 mls @ 100 mls/hr IVCONT .Q10H [facility] Last Admin: 06/04/24 03:59 Dose: 100 mls/hr Documented By: SANG Acetaminophen (Ofirmev) 1,000 mg in 100 mls @ 400 mls/hr IV Q6H [facility] Last Infusion: 06/04/24 04:20 Dose: Infused Documented By: SANG Magnesium Hydroxide (Milk Of Magnesia 30 Ml Oral.Susp) 30 ml PO DAILY PRN PRN Reason: Constipation Melatonin (Melatonin 3 Mg Tablet) 6 mg PO BEDTIME PRN PRN Reason: Insomnia Ondansetron HCl (Ondansetron Hcl 4 Mg/2 Ml Vial) 4 mg IVPUSH Q6H PRN PRN Reason: Nausea and Vomiting Last Admin: 06/03/24 17:55 Dose: 4 mg Documented By: ELDON Oxycodone HCl (Oxycodone Hcl Immed Release 5 Mg Tablet) 5 mg PO Q4H PRN PRN Reason: Pain, Moderate(Pain Scale 4-6) Last Admin: 06/04/24 07:10 Dose: 5 mg Documented By: ELDON Sodium Chloride (0.9 % Sodium Chloride Flush 3 Ml Syringe) 3 ml IVFLUSH QSHIFT [facility] Last Admin: 06/04/24 06:28 Dose: Not Given Documented By: ELDON Non-Admin Reason: IV Running <Farrah Curran PA-C - Last Filed: 06/04/24 07:55> Labs CBC & Chem 7: 06/04/24 05:00 06/04/24 05:24 <Farrah Curran PA-C - Last Filed: 06/04/24 07:55> Labs: Laboratory Results - last 24 hr 06/04/24 06/04/24 05:00 05:24 MCV 104.5 H MCH 37.3 H MCHC 35.7 RDW 13.2 Plt Count 93 L MPV 9.1 L Immature Gran % (Auto) 0.7 H Neut % (Auto) 81.9 H Lymph % (Auto) 9.8 L [place] % (Auto) 7.3 Eos % (Auto) 0.0 Baso % (Auto) 0.3 Lymph # (Auto) 0.7 L [place] # (Auto) 0.5 Eos # (Auto) 0.0 Baso # (Auto) 0.0 Abs Immat Gran (auto) 0.05 H Absolute Neuts (auto) 5.6 Absolute Nucleated RBC 0.000 Nucleated RBC % (auto) 0.0 Anion Gap 13 Estim Creat Clear Calc 72.7 Estimated GFR > 60 Fasting Glucose 108 H Calcium 8.6 D <Farrah Curran PA-C - Last Filed: 06/04/24 07:55> Procedures Date of Service Date of Service: 06/04/24 <Farrah Curran PA-C - Last Filed: 06/04/24 07:55> 06/04/24 <Markos Dubon MD - Last Filed: 06/04/24 16:33> Progress Note: A&P Assessment and plan (1) Mass of colon: Status: Acute <Farrah Curran PA-C - Last Filed: 06/04/24 07:55> Assessment and Plan: Feels well Describes some diarrhea Looks well Abdomen soft Plan to keep on clear liquids for now and re-evaluate later on today Ambulate Seen and examined independently <Markos Dubon MD - Last Filed: 06/04/24 16:33> (2) S/P colon resection: Status: Acute <Farrah Curran PA-C - Last Filed: 06/04/24 07:55> Assessment and Plan: POD #1 s/p Hand assisted laparoscopic right colon resection, extensive lysis of adhesions. Doing fairly well post op, tolerating clears and having loose BMs. VSS. Abd exam benign with clean dressing, appropriate post op tenderness. Will aadvance to solid diet. Increase activity. Andi reddy. Dec IVF. <Farrah Curran PA-C - Last Filed: 06/04/24 07:55> Time Spent With Patient Time: Total time managing care of this patient today ____ minutes. <Farrah Curran PA-C - Last Filed: 06/04/24 07:55> Quality Stroke Does the patient have a stroke diagnosis?: No <Farrah Curran PA-C - Last Filed: 06/04/24 07:55> VTE Prior VTE?: No <Farrah Curran PA-C - Last Filed: 06/04/24 07:55> VTE Risk Level:: Medical - moderate - high <Farrah Curran PA-C - Last Filed: 06/04/24 07:55> VTE Device Contraindication: N/A - Device Ordered <Farrah Curran PA-C - Last Filed: 06/04/24 07:55> VTE Drug Contraindication: N/A - Med Ordered <Farrah Curran PA-C - Last Filed: 06/04/24 07:55>
--- NOTE | 2024-06-04 08:28 | PC.NURSE ---
dinhely cath removed at 0830 Pt DTV at 1430
--- NOTE | 2024-06-04 09:43 | HO.POSTANES ---
Post Anesthesia Evaluation Post Anesthesia Evaluation Date of Service: 06/04/24 Vital Signs: Vital Signs Temp Pulse Resp BP Pulse Ox O2 Del Method 06/04/24 07:20 99.0 F 86 20 159/85 H 94 Room Air 06/04/24 03:50 98.4 F 83 18 145/82 H 96 Room Air Anesthesia: General Mental Status: Awake Pain Control: Satisfactory Nausea/Vomiting: None Hydration: Adequate Anesthesia-Related Issues: No Anes. Related Issues
[2024-06-04] MEDS: Heparin Sodium,Porcine 5,000 UNIT/ML VIAL 5000 UNIT SUBCUT ×2 (10:14→18:09)
--- NOTE | 2024-06-04 13:20 | MHC.CM.PN ---
Addendum entered by Shira Tee RN 06/04/24 13:27: Pt [place] w/ hearing aid. Addendum entered by Shira Tee RN 06/04/24 13:22: IMM verbally delivered. Copy left at bedside per request. Original Note: [employer] completed via telephone w/ brother/guardian Wilfrido. Guardianship on file. Patient lives in a home w/ guardian. Guardian reports patient is independent w/ most ADLs. Ambulates independently. Indpendent w/ hygiene. Able to prepare simple meals. No DME. PCP Nasima Costa MD DP: Goal is home w/ guardian. Guardian to transport. CM will continue to follow.
--- NOTE | 2024-06-04 14:08 | PM.EVENT ---
Event Note Date of Service: 06/05/24 Event Note: Sitting on recliner Says he is comfortable Passing flatus Tolerating regular diet Had some loose stools Abdomen soft Stable vital signs Possibly advance diet layer today Ambulating Voiding freely We will update family Time Spent With Patient Time: Total time managing care of this patient today ____ minutes.
[2024-06-04 15:43] VITALS: BP 157/86; PULSE 85; RESP 16; TEMP 37.2; O2SAT 96
[2024-06-04 19:59] VITALS: BP 150/87; PULSE 81; RESP 18; TEMP 37.4; O2SAT 95
[2024-06-05] MEDS: ondansetron HCL 4 MG/2 ML VIAL IVPUSH ×2 (01:40→17:13)
[2024-06-05] MEDS: Heparin Sodium,Porcine 5,000 UNIT/ML VIAL 5000 UNIT SUBCUT ×3 (01:45→17:39)
[2024-06-05 03:37] VITALS: BP 148/60; PULSE 90; RESP 18; TEMP 36.8; O2SAT 94
[2024-06-05] MEDS: Acetaminophen 1,000 MG/100 ML PIGGYBACK 400 MG IV ×4 (04:18→21:52)
[2024-06-05] MEDS: Lactated Ringers 1,000 ML 60 ML IVCONT (04:57)
--- NOTE | 2024-06-05 07:27 | PM.PNGS ---
Subjective Subjective Date of Service: 06/05/24 <[facility] - Last Filed: 06/05/24 07:45> 06/05/24 <Farrah Curran PA-C - Last Filed: 06/05/24 07:49> 06/05/24 <Markos Dubon MD - Last Filed: 06/05/24 08:13> Interval history: Pt states he is not doing as well today as yesterday, and has had nausea and vomiting this morning. States he vomits when he tries to drink his reddy ivelisse, no longer tolerating liquids. Pain is worse today, 5/10 and is worse when he moves. Was OOB yesterday feeling well but not today. Also has not passed gas or BM since yesterday. <[facility] Last Filed: 06/05/24 07:45> Physical Exam Vital Signs: Vital Signs: Last Vital Signs Temp 98.2 F 06/05/24 03:37 Pulse 90 06/05/24 03:37 Resp 18 06/05/24 03:37 BP 148/60 H 06/05/24 03:37 Pulse Ox 94 06/05/24 03:37 O2 Del Method Room Air 06/05/24 03:37 O2 Flow Rate 2 06/03/24 10:42 BMI result Body Mass Index 24.9 <[facility] Last Filed: 06/05/24 07:45> Const: General: cooperative, alert and awake <[facility] Last Filed: 06/05/24 07:45> Orientation/consciousness: patient oriented x3 <[facility] Last Filed: 06/05/24 07:45> Resp: Effort & Inspection: normal respiratory effort and able to speak in complete sentences <[facility] Last Filed: 06/05/24 07:45> GI: Other: On inspection, incisions are uncovered and well healing with latesha still present and in place, no erythema or edema surrounding. Tender to palpation diffusely, mostly around incision sites. Some distention appreciated. <[facility] Last Filed: 06/05/24 07:45> Other: On inspection, incisions are uncovered and well healing with latesha still present and in place, no erythema or edema surrounding. Mild tenderness to palpation diffusely, mostly around incision sites. Some distention appreciated. <Farrah Curran PA-C - Last Filed: 06/05/24 07:49> Skin: General skin exam: no rashes or lesions noted <Farrah Curran PA-C - Last Filed: 06/05/24 07:49> Neuro: General: patient oriented x3 <Naya León - Last Filed: 06/05/24 07:45> Objective Data Active Medications Calcium Carbonate (Calcium Carbonate 750 Mg Tab.Chew) 750 mg PO Q4H PRN PRN Reason: Heartburn Heparin Sodium (Porcine) (Heparin Sodium,Porcine 5,000 Unit/Ml Vial) 5,000 unit SUBCUT Q8H [facility] Last Admin: 06/05/24 01:45 Dose: 5,000 unit Documented By: ELENA Hydromorphone HCl (Hydromorphone Hcl 0.5 Mg/0.5 Ml Syringe) 0.5 mg IVPUSH Q4H PRN; Protocol PRN Reason: Pain, Severe (Pain Scale 7-10) Acetaminophen (Ofirmev) 1,000 mg in 100 mls @ 400 mls/hr IV Q6H [facility] Last Infusion: 06/05/24 04:37 Dose: Infused Documented By: ELENA Lactated Ringer's (Lr) 1,000 mls @ 100 mls/hr IVCONT .Q10H [facility] Last Admin: 06/05/24 04:57 Dose: 60 mls/hr Documented By: ELENA Magnesium Hydroxide (Milk Of Magnesia 30 Ml Oral.Susp) 30 ml PO DAILY PRN PRN Reason: Constipation Melatonin (Melatonin 3 Mg Tablet) 6 mg PO BEDTIME PRN PRN Reason: Insomnia Ondansetron HCl (Ondansetron Hcl 4 Mg/2 Ml Vial) 4 mg IVPUSH Q6H PRN PRN Reason: Nausea and Vomiting Last Admin: 06/05/24 01:40 Dose: 4 mg Documented By: ELENA Oxycodone HCl (Oxycodone Hcl Immed Release 5 Mg Tablet) 5 mg PO Q4H PRN PRN Reason: Pain, Moderate(Pain Scale 4-6) Last Admin: 06/04/24 21:18 Dose: 5 mg Documented By: HO.TUMASY Promethazine HCl (Promethazine Hcl 25 Mg/Ml Vial) 12.5 mg IM Q6H PRN PRN Reason: Nausea and Vomiting Sodium Chloride (0.9 % Sodium Chloride Flush 3 Ml Syringe) 3 ml IVFLUSH QSHIFT [facility] Last Admin: 06/05/24 06:31 Dose: Not Given Documented By: ELDON Non-Admin Reason: IV Running <[facility] - Last Filed: 06/05/24 07:45> Labs CBC & Chem 7: 06/04/24 05:00 06/04/24 05:24 <[facility] - Last Filed: 06/05/24 07:45> Procedures Date of Service Date of Service: 06/05/24 <[facility] - Last Filed: 06/05/24 07:45> 06/05/24 <Farrah Curran PA-C - Last Filed: 06/05/24 07:49> 06/05/24 <Markos Dubon MD - Last Filed: 06/05/24 08:13> Progress Note: A&P Assessment and plan (1) S/P colon resection: Status: Acute <[facility] - Last Filed: 06/05/24 07:45> Assessment and Plan: Says he had some emesis Abdomen soft and benign He looks well Incision clean Possibly with delayed return of GI function Ambulate IV fluids Seen and examined independently <Markos Dubon MD - Last Filed: 06/05/24 08:13> Assessment and Plan: Transition from clear liquid diet to NPO due to vomiting Zofran and Phenergen ordered for nausea Encourage OOB as tolerated Continue to monitor and if continued vomiting can place NG tube Trial liquids if vomiting resolves <[facility] - Last Filed: 06/05/24 07:45> Transition from clear liquid diet to NPO due to vomiting Zofran and Phenergen ordered for nausea Encourage OOB as tolerated Continue to monitor and if continued vomiting can place NG tube Trial liquids if vomiting resolves Patient seen independently, agree with above plan. Patient with mild distention, now vomiting. Abd overall benign appearing with clean incision. Will make NPO, increase IVF. OOB/ambulation encouraged today. If continued nausea/vomiting, may require NGT for decompression. Recheck lytes tomorrow. Await pathology. <Farrah Curran PA-C - Last Filed: 06/05/24 07:49> Time Spent With Patient Time: Total time managing care of this patient today ____ minutes. <Naya León - Last Filed: 06/05/24 07:45> Quality Stroke Does the patient have a stroke diagnosis?: No <Naya León - Last Filed: 06/05/24 07:45> VTE Prior VTE?: No <Naya León - Last Filed: 06/05/24 07:45> VTE Risk Level:: Medical - moderate - high <Naya León - Last Filed: 06/05/24 07:45> VTE Device Contraindication: N/A - Device Ordered <Naya León - Last Filed: 06/05/24 07:45> VTE Drug Contraindication: N/A - Med Ordered <Naya León Last Filed: 06/05/24 07:45>
[2024-06-05] MEDS: Promethazine HCL 25 MG/ML VIAL 12.5 MG IM (07:29)
[2024-06-05 07:53] VITALS: BP 171/92; PULSE 95; RESP 18; TEMP 37.2; O2SAT 95
--- NOTE | 2024-06-05 11:31 | PC.NURSE ---
Addendum entered by Essie Cruz RN 06/05/24 14:07: pt took amlodipine at 1200 with a sip of gingerale , no further vomiting at this time , pt ambulated in the yin, states pain minimal . Original Note: pt vomiting this am , IM phenergan ordered and given . Pt cont to feel nauseous , pt unable to take amlodipine at this time . Pt sleeping on and off . Brother arnulfo updated on pt status .
[2024-06-05] MEDS: amLODIPine Besylate 5 MG TABLET PO (11:53)
[2024-06-05 13:32] VITALS: BP 176/98
--- NOTE | 2024-06-05 15:08 | PM.EVENT ---
Event Note Date of Service: 06/06/24 Event Note: Seen on afternoon rounds Says he is okay Denies pain A little bit drowsy from Phenergan earlier today Had dry heaving early this morning but has had no vomiting Abdomen remained soft and benign Keep NPO but okay to have sips of clears Ambulate and get out of bed I have updated his brother Wilfrido BP med for hypertension Time Spent With Patient Time: Total time managing care of this patient today ____ minutes.
[2024-06-05 15:11] VITALS: BP 168/92; PULSE 99; RESP 18; TEMP 37.2; O2SAT 95
[2024-06-05] MEDS: Lactated Ringers 1,000 ML 100 ML IVCONT (16:36)
[2024-06-05 19:18] VITALS: BP 158/86; PULSE 99; RESP 18; TEMP 36.6; O2SAT 94
[2024-06-05 22:22] VITALS: RESP 18
[2024-06-06] MEDS: Lactated Ringers 1,000 ML 100 ML IVCONT (01:40)
[2024-06-06 01:46] VITALS: BP 164/91; PULSE 100; RESP 18; TEMP 37.1; O2SAT 94
[2024-06-06] MEDS: Heparin Sodium,Porcine 5,000 UNIT/ML VIAL 5000 UNIT SUBCUT ×3 (02:20→18:35)
[2024-06-06] MEDS: Acetaminophen 1,000 MG/100 ML PIGGYBACK 400 MG IV (02:21)
[2024-06-06 03:15] VITALS: RESP 16
[2024-06-06 07:22] VITALS: BP 162/88; PULSE 94; RESP 18; TEMP 37.2; O2SAT 94
[2024-06-06] MEDS: amLODIPine Besylate 5 MG TABLET PO (07:54)
--- NOTE | 2024-06-06 09:18 | P.PNGS_ITS ---
Subjective Subjective Date of Service: 06/06/24 <Farrah Curran PA-C - Last Filed: 06/06/24 09:22> 06/06/24 <Markos Dubon MD - Last Filed: 06/06/24 11:10> Interval history: Feels improved. Had multiple BMs. Denies nausea, vomiting. Would like to try liquids again. Denies pain. <Farrah Curran PA-C - Last Filed: 06/06/24 09:22> Physical Exam 2 Vital Signs: Vital Signs: Last Vital Signs Temp 98.9 F 06/06/24 07:22 Pulse 94 06/06/24 07:22 Resp 18 06/06/24 07:22 BP 162/88 H 06/06/24 07:22 Pulse Ox 94 06/06/24 07:22 O2 Del Method Room Air 06/06/24 07:22 O2 Flow Rate 2 06/03/24 10:42 BMI result Body Mass Index 24.9 <Farrah Curran PA-C - Last Filed: 06/06/24 09:22> Const: General: comfortable, no acute distress and alert <Farrah Curran PA-C - Last Filed: 06/06/24 09:22> Orientation/consciousness: patient oriented x3 <ALBERTO Mayen Last Filed: 06/06/24 09:22> Resp: Effort & Inspection: normal respiratory effort <Farrah Curran PA-C - Last Filed: 06/06/24 09:22> GI: Inspection: Yes distended (mild, improved) and Yes incision (clean) < Farrah Curran PA-C - Last Filed: 06/06/24 09:22> Palpation (GI): Soft to palpation, nontender and no guarding <ALBERTO Mayen Last Filed: 06/06/24 09:22> Percussion: Yes tympanic to percussion <ALBERTO Mayen Last Filed: 06/06/24 09:22> Skin: General skin exam: no rashes or lesions noted <ALBERTO Mayen Last Filed: 06/06/24 09:22> Neuro: General: patient oriented x3 <Farrah Curran PA-C - Last Filed: 06/06/24 09:22> Objective Data Active Medications Amlodipine Besylate (Amlodipine Besylate 5 Mg Tablet) 5 mg PO DAILY [facility]; Protocol Last Admin: 06/06/24 07:54 Dose: 5 mg Documented By: YOAN Calcium Carbonate (Calcium Carbonate 750 Mg Tab.Chew) 750 mg PO Q4H PRN PRN Reason: Heartburn Heparin Sodium (Porcine) (Heparin Sodium,Porcine 5,000 Unit/Ml Vial) 5,000 unit SUBCUT Q8H [facility] Last Admin: 06/06/24 02:20 Dose: 5,000 unit Documented By: MARILYN Hydromorphone HCl (Hydromorphone Hcl 0.5 Mg/0.5 Ml Syringe) 0.5 mg IVPUSH Q4H PRN; Protocol PRN Reason: Pain, Severe (Pain Scale 7-10) Acetaminophen (Ofirmev) 1,000 mg in 100 mls @ 400 mls/hr IV Q6H [facility] Last Infusion: 06/06/24 02:43 Dose: Infused Documented By: MARILYN Lactated Ringer's (Lr) 1,000 mls @ 100 mls/hr IVCONT .Q10H [facility] Last Admin: 06/06/24 01:40 Dose: 100 mls/hr Documented By: MARILYN Magnesium Hydroxide (Milk Of Magnesia 30 Ml Oral.Susp) 30 ml PO DAILY PRN PRN Reason: Constipation Melatonin (Melatonin 3 Mg Tablet) 6 mg PO BEDTIME PRN PRN Reason: Insomnia Ondansetron HCl (Ondansetron Hcl 4 Mg/2 Ml Vial) 4 mg IVPUSH Q6H PRN PRN Reason: Nausea and Vomiting Last Admin: 06/05/24 17:13 Dose: 4 mg Documented By: DABA Oxycodone HCl (Oxycodone Hcl Immed Release 5 Mg Tablet) 5 mg PO Q4H PRN PRN Reason: Pain, Moderate(Pain Scale 4-6) Last Admin: 06/04/24 21:18 Dose: 5 mg Documented By: TUMSEBASTIAN Promethazine HCl (Promethazine Hcl 25 Mg/Ml Vial) 12.5 mg IM Q6H PRN PRN Reason: Nausea and Vomiting Last Admin: 06/05/24 07:29 Dose: 12.5 mg Documented By: ELDON Sodium Chloride (0.9 % Sodium Chloride Flush 3 Ml Syringe) 3 ml IVFSH [facility] Last Admin: 06/06/24 07:54 Dose: Not Given Documented By: YOAN Non-Admin Reason: iv fluids running <Farrah Curran PA-C - Last Filed: 06/06/24 09:22> Labs CBC & Chem 7: 06/04/24 05:00 06/04/24 05:24 <Farrah Curran PA-C - Last Filed: 06/06/24 09:22> Procedures Date of Service Date of Service: 06/06/24 <Farrah Curran PA-C - Last Filed: 06/06/24 09:22> 06/06/24 <Markos Dubon MD - Last Filed: 06/06/24 11:10> Progress Note: A&P Assessment and plan (1) S/P colon resection: Status: Acute <Farrah Curran PA-C - Last Filed: 06/06/24 09:22> Assessment and Plan: Denies pain Looks well No further vomiting Abdomen soft and benign Okay to retry clear liquids Ambulate Seen and examined independently <Markos Dubon MD - Last Filed: 06/06/24 11:10> Assessment and Plan: POD #3 s/p MARILYN right colectomy. Nausea, vomiting resolved and now with GI function again. Abd benign, distention improved, nontender. Will advance to clear liquids as tolerated. Increase activity. Await pathology. HTN- remains elevated despite resumption of home amlodipine. Dec IVF. If remains elevated, consult hospitalist service. <Farrah Curran PA-C - Last Filed: 06/06/24 09:22> Time Spent With Patient Time: Total time managing care of this patient today ____ minutes. <Farrah Curran PA-C - Last Filed: 06/06/24 09:22> Quality Stroke Does the patient have a stroke diagnosis?: No <ALBERTO Mayen Last Filed: 06/06/24 09:22> VTE Prior VTE?: No <Farrah Curran PA-C - Last Filed: 06/06/24 09:22> VTE Risk Level:: Medical - moderate - high <ALBERTO Mayen Last Filed: 06/06/24 09:22> VTE Device Contraindication: N/A - Device Ordered <Farrah Curran PA-C - Last Filed: 06/06/24 09:22> VTE Drug Contraindication: N/A - Med Ordered <Farrah Curran PA-C - Last Filed: 06/06/24 09:22>
--- NOTE | 2024-06-06 11:03 | MHC.CM.PN ---
Patient not medically cleared for dc at this time. No change to dc plan. CM will continue to follow.
[2024-06-06] MEDS: ondansetron HCL 4 MG/2 ML VIAL IVPUSH (12:46)
--- NOTE | 2024-06-06 15:10 | PM.EVENT ---
Event Note Date of Service: 06/06/24 Event Note: Seen on afternoon rounds Feels well Denies abdominal pain Tolerating clear liquid Passing flatus Abdomen is soft, no guarding, no rebound, no significant tenderness Keep on clear liquids for today Advanced slowly as tolerated tomorrow Looks well overall and comfortable Ambulate Family updated Time Spent With Patient Time: Total time managing care of this patient today ____ minutes.
[2024-06-06 15:33] VITALS: BP 141/69; PULSE 94; RESP 18; TEMP 36.8; O2SAT 94
--- NOTE | 2024-06-06 18:27 | PC.NURSE ---
Pt's sister in law states Daniel will eat anything you put in front of him for food. So if he is given a large amt of food he will eat it all. Recommends giving small portions and monitoring while eating.
[2024-06-06 19:15] VITALS: BP 138/73; PULSE 99; RESP 18; TEMP 36.8; O2SAT 94
[2024-06-06] MEDS: 0.9 % Sodium Chloride Flush 3 ML SYRINGE IVFLUSH (19:49)
[2024-06-07] MEDS: Heparin Sodium,Porcine 5,000 UNIT/ML VIAL 5000 UNIT SUBCUT ×3 (02:34→17:40)
[2024-06-07 04:00] VITALS: BP 166/80; PULSE 100; RESP 18; TEMP 36.9; O2SAT 94
[2024-06-07] MEDS: ondansetron HCL 4 MG/2 ML VIAL IVPUSH ×2 (05:45→13:36)
[2024-06-07 07:36] VITALS: BP 174/91; PULSE 100; RESP 18; TEMP 36.8; O2SAT 96
[2024-06-07 08:35] VITALS: BP 159/93
[2024-06-07] MEDS: amLODIPine Besylate 5 MG TABLET PO (08:35)
[2024-06-07] MEDS: 0.9 % Sodium Chloride Flush 3 ML SYRINGE IVFLUSH ×3 (08:35→21:33)
[2024-06-07] MEDS: Calcium Carbonate 750 MG TAB.CHEW PO (09:52)
[2024-06-07] MEDS: oxyCODONE HCl Immed Release 5 MG TABLET PO ×3 (09:54→23:07)
--- NOTE | 2024-06-07 14:50 | P.PNGS_ITS ---
Subjective Subjective Date of Service: 06/07/24 Interval history: Uneventful evening. Patient complaining of incisional pain. Tolerating diet. Passing flatus and stool. Physical Exam 2 Vital Signs: Vital Signs: Last Vital Signs Temp 98.3 F 06/07/24 07:36 Pulse 100 06/07/24 07:36 Resp 18 06/07/24 07:36 BP 159/93 H 06/07/24 08:35 Pulse Ox 96 06/07/24 07:36 O2 Del Method Room Air 06/07/24 07:36 O2 Flow Rate 2 06/03/24 10:42 BMI result Body Mass Index 24.9 GI: Other: Abdomen is soft. All wounds clean dry and intact. Objective Data Active Medications Amlodipine Besylate (Amlodipine Besylate 5 Mg Tablet) 5 mg PO DAILY [facility]; Protocol Last Admin: 06/07/24 08:35 Dose: 5 mg Documented By: PATTY Calcium Carbonate (Calcium Carbonate 750 Mg Tab.Chew) 750 mg PO Q4H PRN PRN Reason: Heartburn Last Admin: 06/07/24 09:52 Dose: 750 mg Documented By: PATTY Heparin Sodium (Porcine) (Heparin Sodium,Porcine 5,000 Unit/Ml Vial) 5,000 unit SUBCUT Q8H [facility] Last Admin: 06/07/24 09:29 Dose: 5,000 unit Documented By: PATTY Hydromorphone HCl (Hydromorphone Hcl 0.5 Mg/0.5 Ml Syringe) 0.5 mg IVPUSH Q4H PRN; Protocol PRN Reason: Pain, Severe (Pain Scale 7-10) Magnesium Hydroxide (Milk Of Magnesia 30 Ml Oral.Susp) 30 ml PO DAILY PRN PRN Reason: Constipation Melatonin (Melatonin 3 Mg Tablet) 6 mg PO BEDTIME PRN PRN Reason: Insomnia Ondansetron HCl (Ondansetron Hcl 4 Mg/2 Ml Vial) 4 mg IVPUSH Q6H PRN PRN Reason: Nausea and Vomiting Last Admin: 06/07/24 13:36 Dose: 4 mg Documented By: PATTY Oxycodone HCl (Oxycodone Hcl Immed Release 5 Mg Tablet) 5 mg PO Q4H PRN PRN Reason: Pain, Moderate(Pain Scale 4-6) Last Admin: 06/07/24 09:54 Dose: 5 mg Documented By: PATTY Promethazine HCl (Promethazine Hcl 25 Mg/Ml Vial) 12.5 mg IM Q6H PRN PRN Reason: Nausea and Vomiting Last Admin: 06/05/24 07:29 Dose: 12.5 mg Documented By: ELDON Sodium Chloride (0.9 % Sodium Chloride Flush 3 Ml Syringe) 3 ml IVFLUSH QSHIFT [facility] Last Admin: 06/07/24 08:35 Dose: 3 ml Documented By: PATTY Labs 06/04/24 05:00 06/04/24 05:24 Procedures Date of Service Date of Service: 06/07/24 Progress Note: A&P Assessment and plan (1) S/P colon resection: Status: Acute Plan Continuing current plan; out of bed, diet as tolerated, pain control Time Spent With Patient Time: Total time managing care of this patient today ____ minutes. Quality Stroke Does the patient have a stroke diagnosis?: No VTE Prior VTE?: No VTE Risk Level:: Medical - moderate - high VTE Device Contraindication: N/A - Device Ordered VTE Drug Contraindication: N/A - Med Ordered
[2024-06-07 15:13] VITALS: BP 147/86; PULSE 100; RESP 18; TEMP 37.3; O2SAT 97
--- NOTE | 2024-06-07 17:14 | PC.NURSE ---
Pt endorsing nausea without vomiting at 1330, zofran given with good effect. Pt ambulating in hallway with standby assistance. Pt endorsing pain PRN oxy given two time this shift last given at 1711. Pt tolerating small amount of clear PO intake. Pt has +BS all 4 quads, able to move bowels 3x this shift, loose green, abd distended but soft and tender.
[2024-06-07 19:34] VITALS: BP 154/98; PULSE 100; RESP 18; TEMP 36.6; O2SAT 97
[2024-06-08 00:07] VITALS: RESP 18
[2024-06-08] MEDS: Heparin Sodium,Porcine 5,000 UNIT/ML VIAL 5000 UNIT SUBCUT ×3 (02:43→17:46)
[2024-06-08 03:19] VITALS: BP 140/80; PULSE 104; RESP 16; TEMP 36.3; O2SAT 95
[2024-06-08 07:17] VITALS: BP 136/79; PULSE 99; RESP 20; TEMP 36.9; O2SAT 94
[2024-06-08] MEDS: oxyCODONE HCl Immed Release 5 MG TABLET PO (07:33)
[2024-06-08] MEDS: 0.9 % Sodium Chloride Flush 3 ML SYRINGE IVFLUSH (07:33)
[2024-06-08] MEDS: amLODIPine Besylate 5 MG TABLET PO (07:33)
--- NOTE | 2024-06-08 08:59 | PC.NURSE ---
Addendum entered by Cheryl Murphy RN 06/08/24 16:24: Pt had second episode of vomiting at 10:20, light green. Yao made aware via tiger text, orders for NPO (ice, sips of clears, and meds ok) and IVF ordered. PRN Zofran given per orders, with good effect. Original Note: General Surgeon Yao made aware via tiger text, pt endorsing increased abd pain from yesterday, had 1 episode of 100ml light green emesis early this am. Abd tender, soft, slightly distended, +BS. Pt moved bowels this AM, loose green stool. Poor PO intake of clear fluids. PRN Oxy given this am with positive effect. Pt has developmental delay at baseline, communication is poor but utilizing stearns golden faces scale. No guarding or grimacing noted and pt is able to ambulate around the hallway with ease. Walking around hallway and room frequently. No new orders at this time.
[2024-06-08] MEDS: ondansetron HCL 4 MG/2 ML VIAL IVPUSH (10:27)
[2024-06-08] MEDS: Lactated Ringers 1,000 ML 75 ML IVCONT ×2 (11:17→23:29)
--- NOTE | 2024-06-08 14:23 | P.PNGS_ITS ---
Subjective Subjective Date of Service: 06/08/24 Interval history: Patient had an episode of vomiting this morning. He is afraid to take any diet now. He is passing flatus and stool. Physical Exam 2 Vital Signs: Vital Signs: Last Vital Signs Temp 98.4 F 06/08/24 07:17 Pulse 99 06/08/24 07:17 Resp 20 06/08/24 07:17 BP 136/79 06/08/24 07:17 Pulse Ox 94 06/08/24 07:17 O2 Del Method Room Air 06/08/24 07:17 O2 Flow Rate 2 06/03/24 10:42 BMI result Body Mass Index 24.9 GI: Other: Abdomen mildly distended but no evidence of any guarding, rebound, or rigidity. Incisions clean dry and intact healing uneventfully Objective Data Active Medications Amlodipine Besylate (Amlodipine Besylate 5 Mg Tablet) 5 mg PO DAILY [facility]; Protocol Last Admin: 06/08/24 07:33 Dose: 5 mg Documented By: PATTY Calcium Carbonate (Calcium Carbonate 750 Mg Tab.Chew) 750 mg PO Q4H PRN PRN Reason: Heartburn Last Admin: 06/07/24 09:52 Dose: 750 mg Documented By: PATTY Heparin Sodium (Porcine) (Heparin Sodium,Porcine 5,000 Unit/Ml Vial) 5,000 unit SUBCUT Q8H [facility] Last Admin: 06/08/24 10:20 Dose: 5,000 unit Documented By: PATTY Hydromorphone HCl (Hydromorphone Hcl 0.5 Mg/0.5 Ml Syringe) 0.5 mg IVPUSH Q4H PRN; Protocol PRN Reason: Pain, Severe (Pain Scale 7-10) Lactated Ringer's (Lr) 1,000 mls @ 75 mls/hr IVCONT .[id number] [facility] Last Admin: 06/08/24 11:17 Dose: 75 mls/hr Documented By: PATTY Magnesium Hydroxide (Milk Of Magnesia 30 Ml Oral.Susp) 30 ml PO DAILY PRN PRN Reason: Constipation Melatonin (Melatonin 3 Mg Tablet) 6 mg PO BEDTIME PRN PRN Reason: Insomnia Ondansetron HCl (Ondansetron Hcl 4 Mg/2 Ml Vial) 4 mg IVPUSH Q6H PRN PRN Reason: Nausea and Vomiting Last Admin: 06/08/24 10:27 Dose: 4 mg Documented By: PATTY Oxycodone HCl (Oxycodone Hcl Immed Release 5 Mg Tablet) 5 mg PO Q4H PRN PRN Reason: Pain, Moderate(Pain Scale 4-6) Promethazine HCl (Promethazine Hcl 25 Mg/Ml Vial) 12.5 mg IM Q6H PRN PRN Reason: Nausea and Vomiting Last Admin: 06/05/24 07:29 Dose: 12.5 mg Documented By: ELDON Sodium Chloride (0.9 % Sodium Chloride Flush 3 Ml Syringe) [facility] Last Admin: 06/08/24 07:33 Dose: 3 ml Documented By: PATTY Labs 06/04/24 05:00 06/04/24 05:24 Procedures Date of Service Date of Service: 06/08/24 Progress Note: A&P Assessment and plan (1) S/P colon resection: Status: Acute (2) Ileus, postoperative: Status: Acute Plan For sips of p.o. liquids, low rate IV, and await resolution of ileus for advancing diet. Out of bed/ambulate Time Spent With Patient Time: Total time managing care of this patient today ____ minutes. Quality Stroke Does the patient have a stroke diagnosis?: No VTE Prior VTE?: No VTE Risk Level:: Medical - moderate - high VTE Device Contraindication: N/A - Device Ordered VTE Drug Contraindication: N/A - Med Ordered
[2024-06-08 15:21] VITALS: BP 155/90; PULSE 100; RESP 18; TEMP 36.9; O2SAT 96
[2024-06-08 19:45] VITALS: BP 158/89; PULSE 105; RESP 17; TEMP 36.9; O2SAT 93
[2024-06-09 03:33] VITALS: BP 142/85; PULSE 102; RESP 16; TEMP 36.6; O2SAT 94
[2024-06-09] MEDS: Heparin Sodium,Porcine 5,000 UNIT/ML VIAL 5000 UNIT SUBCUT ×3 (03:35→17:47)
--- NOTE | 2024-06-09 06:46 | PM.PNGS ---
Subjective Subjective Date of Service: 06/09/24 <Parvez Aliyah - Last Filed: 06/09/24 07:08> 06/09/24 <Farrah Curran PA-C - Last Filed: 06/09/24 08:28> 06/09/24 <Markos Dubon MD - Last Filed: 06/09/24 08:44> Interval history: No acute overnight events. Daniel mentions no significant pain at this time. He reports drinking water w/o nausea or vomiting. Has not vomited since day shift according to nurses. He reports BMs and flatus. Reports using spirometer, reaching 250mL on demonstration. Has been OOB to ambulate around hospital floor w/o dizziness, requires assistance. <Parvez Aliyah - Last Filed: 06/09/24 07:08> Physical Exam Vital Signs: Vital Signs: Last Vital Signs Temp 97.9 F 06/09/24 03:33 Pulse 102 H 06/09/24 03:33 Resp 16 06/09/24 03:33 BP 142/85 H 06/09/24 03:33 Pulse Ox 94 06/09/24 03:33 O2 Del Method Room Air 06/09/24 03:33 O2 Flow Rate 2 06/03/24 10:42 BMI result Body Mass Index 24.9 <Parvez Aliyah - Last Filed: 06/09/24 07:08> Const: General: cooperative and comfortable <annmarie Aliyah - Last Filed: 06/09/24 07:08> Orientation/consciousness: patient oriented x3 <Parvez Aliyah - Last Filed: 06/09/24 07:08> GI: Other: Daniel is mildly distended and tympanic. Mild tenderness to deep palpation throughout abdomen. Bowel sounds are few and far between. No guarding, rigidity, or rebound tenderness. Incisions are clean and intact, latesha in place w/ surrounding ecchymosis. <Parvez Ly - Last Filed: 06/09/24 07:08> Inspection: Yes abdominal wall ecchymosis <annmarie Last Filed: 06/09/24 07:08> Palpation (GI): Tenderness to palpation present (GI), no guarding, not rigid and No Rebound tenderness present <Parvez Aliyah - Last Filed: 06/09/24 07:08> Percussion: Yes tympanic to percussion <Parvez Aliyah - Last Filed: 06/09/24 07:08> Auscultation: Hypoactive bowel sounds present <Parvez Aliyah - Last Filed: 06/09/24 07:08> Neuro: General: patient oriented x3 <Parvez Aliyah - Last Filed: 06/09/24 07:08> Objective Data Active Medications Amlodipine Besylate (Amlodipine Besylate 5 Mg Tablet) 5 mg PO DAILY [facility]; Protocol Last Admin: 06/08/24 07:33 Dose: 5 mg Documented By: PATTY Calcium Carbonate (Calcium Carbonate 750 Mg Tab.Chew) 750 mg PO Q4H PRN PRN Reason: Heartburn Last Admin: 06/07/24 09:52 Dose: 750 mg Documented By: PATTY Heparin Sodium (Porcine) (Heparin Sodium,Porcine 5,000 Unit/Ml Vial) 5,000 unit SUBCUT Q8H [facility] Last Admin: 06/09/24 03:35 Dose: 5,000 unit Documented By: MARILYN Hydromorphone HCl (Hydromorphone Hcl 0.5 Mg/0.5 Ml Syringe) 0.5 mg IVPUSH Q4H PRN; Protocol PRN Reason: Pain, Severe (Pain Scale 7-10) Lactated Ringer's (Lr) 1,000 mls @ 75 mls/hr IVCONT .[id number] [facility] Last Admin: 06/08/24 23:29 Dose: 75 mls/hr Documented By: MARILYN Magnesium Hydroxide (Milk Of Magnesia 30 Ml Oral.Susp) 30 ml PO DAILY PRN PRN Reason: Constipation Melatonin (Melatonin 3 Mg Tablet) 6 mg PO BEDTIME PRN PRN Reason: Insomnia Ondansetron HCl (Ondansetron Hcl 4 Mg/2 Ml Vial) 4 mg IVPUSH Q6H PRN PRN Reason: Nausea and Vomiting Last Admin: 06/08/24 10:27 Dose: 4 mg Documented By: PATTY Oxycodone HCl (Oxycodone Hcl Immed Release 5 Mg Tablet) 5 mg PO Q4H PRN PRN Reason: Pain, Moderate(Pain Scale 4-6) Promethazine HCl (Promethazine Hcl 25 Mg/Ml Vial) 12.5 mg IM Q6H PRN PRN Reason: Nausea and Vomiting Last Admin: 06/05/24 07:29 Dose: 12.5 mg Documented By: ELDON Sodium Chloride (0.9 % Sodium Chloride Flush 3 Ml Syringe) 3 ml IVFLUSH QSHIFT [facility] Last Admin: 06/08/24 23:33 Dose: Not Given Documented By: MARILYN Non-Admin Reason: IV Running <Parvez Ly - Last Filed: 06/09/24 07:08> Labs CBC & Chem 7: 06/09/24 07:53 06/09/24 07:53 <Parvez Ly - Last Filed: 06/09/24 07:08> Procedures Date of Service Date of Service: 06/09/24 <Parvez Ly - Last Filed: 06/09/24 07:08> 06/09/24 <Farrah Curran PA-C - Last Filed: 06/09/24 08:28> 06/09/24 <Markos Dubon MD - Last Filed: 06/09/24 08:44> Progress Note: A&P Assessment and plan (1) S/P colon resection: Status: Acute <Parvez Ly - Last Filed: 06/09/24 07:08> Assessment and Plan: Vomited yesterday As per nurse, no vomiting overnight or this morning Taking a lot of sips of water Denies pain Looks well overall Abdomen soft and benign Okay to proceed with CT scan in view of vomiting Labs ordered for electrolytes Seen and examined independently Family updated <Markos Dubon MD - Last Filed: 06/09/24 08:44> Assessment and Plan: POD6 s/p MARILYN right colectomy. Non-acute abdomen; mild distention and mildly tender to deep palpation. Reports BM and flatus, has not been vomiting for at least 12 hours. Drinking water w/o problems. Reintroduce clear liquid diet as tolerated. If vomiting continues consider NG tube for decompression. Continue ambulation and incentive spirometer. <Parvez Aliyah - Last Filed: 06/09/24 07:08> POD6 s/p MARILYN right colectomy. Non-acute abdomen; mild distention and mildly tender to deep palpation. Reports BM and flatus, has not been vomiting for at least 12 hours. Drinking water w/o problems. Reintroduce clear liquid diet as tolerated. If vomiting continues consider NG tube for decompression. Continue ambulation and incentive spirometer. Seen independently, agree with Aliyah MS-3. Patient POD #6 s/p MARILYN right colectomy. Continued nausea/vomiting over the weekend but having bowel movements. Remains distended on exam. Will obtain CBC, BMP and order CT scan abd/pelvis to assess. If continues to be unable to tolerate significant PO intake will require supplemental nutrition with either PPN or TPN. Will consult nutrition. Pathology- Colon, right, segmental resection: - Adenocarcinoma, moderately differentiated with mucinous features, invasive into subserosa; negative margins. - Metastatic carcinoma present in one of 23 lymph nodes examined. - Tubular adenomata, hyperplastic and inflammatory polyps. - pT3 N1a <Farrah Curran PA-C - Last Filed: 06/09/24 08:28> Time Spent With Patient Time: Total time managing care of this patient today ____ minutes. <Parvez Ly - Last Filed: 06/09/24 07:08> Quality Stroke Does the patient have a stroke diagnosis?: No <Pravez Waters Filed: 06/09/24 07:08> VTE Prior VTE?: No <Parvez Myrick Last Filed: 06/09/24 07:08> VTE Risk Level:: Medical - moderate - high <Parvez Waters Filed: 06/09/24 07:08> VTE Device Contraindication: N/A - Device Ordered <Parvez Myrick Last Filed: 06/09/24 07:08> VTE Drug Contraindication: N/A - Med Ordered <Parvez Myrick Last Filed: 06/09/24 07:08>
[2024-06-09] MEDS: oxyCODONE HCl Immed Release 5 MG TABLET PO ×3 (07:13→14:42)
[2024-06-09] MEDS: amLODIPine Besylate 5 MG TABLET PO (07:13)
[2024-06-09 07:50] VITALS: BP 147/81; PULSE 96; RESP 18; TEMP 37; O2SAT 94
[2024-06-09 08:02] LABS: Hematocrit 37.9 % (42.0-52.0); Hemoglobin 13.5 g/dl (14.0-18.0); Mean Corpuscular HGB Conc 35.6 g/dl (31.0-36.0); Mean Corpuscular Volume 103.8 fL (80.0-98.0); Mean Platelet Volume 8.6 fL (9.4-12.4); Platelet Count 109 X10*3/uL (160-400); Red Blood Count 3.65 X10*6/uL (4.60-5.80); Red Cell Distribution Width 13.7 % (11.0-16.0); White Blood Count 2.9 X10*3/uL (4.8-10.8)
[2024-06-09 08:13] LABS: Anion Gap 14 (12-20); Blood Urea Nitrogen 26 mg/dL (9-16); Calcium 8.3 mg/dL (8.4-10.2); Carbon Dioxide 27 mmol/L (22-29); Chloride 100 mmol/L (96-108); Estimated Glomerular Filt Rate > 60; Glucose Fasting 92 mg/dL (60-99); Potassium 3.5 mmol/L (3.3-5.1); Sodium 137 mmol/L (135-145)
[2024-06-09 08:56] LABS: Atypical Lymphs Percent Manual 1 % (0-6); Band Neutrophils Percent 7 % (3-5); Lymphocytes Absolute Manual 0.4 X10*3/uL (1.2-4.9); Lymphocytes Percent Manual 14 % (20-40); Macrocytosis 1+ (5-14) /OIF; Monocytes Absolute Manual 0.5 X10*3/uL (0.1-1.2); Monocytes Percent Manual 16 % (2-11); Neutrophils Percent Manual 62 % (45-73); Platelet Estimate DECREASED (NORMAL); Platelet Morphology Comment NORMAL; RBC Morphology NOTED
[2024-06-09] MEDS: Lactated Ringers 1,000 ML 75 ML IVCONT (10:46)
--- NOTE | 2024-06-09 11:07 | MHC.CM.PN ---
PATIENT NOT MEDICALLY CLEARED FOR DC. NO CHANGE TO DC PLAN. CM WILL CONTINUE TO FOLLOW.
[2024-06-09 12:03] VITALS: BMI 24.9
[2024-06-09] MEDS: iohexoL 350 MG/ML 75 ML INFUS..BTL 85 ML IV (12:32)
--- NOTE | 2024-06-09 12:32 | MHC.CLN ---
NUTRITION DIET=NPO. NPO DUE TO VOMITING. S/P COLON RESECTION, POST OP ILEUS, AND DX COLON CANCER. TODAY IS DAY 7 OF ADMISSION WITH LIMITED PO INTAKE. IF UNABLE TO TOLERATE PO INTAKE, RECOMMEND ARTIFICIAL NUTRITION VIA PPN OR TPN. IF PPN, RECOMMEND START AT 35 ML PER HOUR, 36 G PROTEIN, 84 G DEXTROSE, 428 KCALS. IF TPN, RECOMMEND START AT 30 ML PER HOUR, 36 G PROTEIN, 108 G DEXTROSE, 511 KCALS. REPLETE LYTES NEEDED. FOLLOW FOR PO TOLERANCE AND NUTRITIONAL NEEDS. SEE CLINICAL NUTRITION ASSESSMENT 06/09/24.
--- NOTE | 2024-06-09 13:55 | PM.EVENT ---
Event Note Date of Service: 06/09/24 Event Note: Seen on afternoon rounds He looks comfortable No further vomiting He says he is passing flatus Abdomen soft and benign, no significant tenderness I have reviewed his CAT scan - this shows diffusely dilated small bowel loops with fluid, anastomosis patent Seems to be more consistent with delayed return of GI function Okay for clear liquids for now PPN I have updated his brother today Path report shows a T3 N1 adenocarcinoma Time Spent With Patient Time: Total time managing care of this patient today ____ minutes.
[2024-06-09 15:44] VITALS: BP 154/77; PULSE 98; RESP 20; TEMP 37.2; O2SAT 95
[2024-06-09 19:32] VITALS: BP 159/85; PULSE 98; RESP 20; TEMP 37.6; O2SAT 95
[2024-06-09] MEDS: Parenteral Nutrition 840 ML 35 ML IV (19:42)
--- NOTE | 2024-06-09 20:16 | PC.NURSE ---
Previous day nurse Kellie told me that the provider today told her that when the PPN goes up to stop the fluids, fluids paused in meditech after PPN was hung.
[2024-06-10] MEDS: oxyCODONE HCl Immed Release 5 MG TABLET PO ×3 (00:52→10:33)
[2024-06-10] MEDS: HYDROmorphone HCl 0.5 MG/0.5 ML SYRINGE IVPUSH (03:31)
[2024-06-10] MEDS: Heparin Sodium,Porcine 5,000 UNIT/ML VIAL 5000 UNIT SUBCUT ×3 (03:33→17:44)
[2024-06-10 03:51] VITALS: BP 156/85; PULSE 93; RESP 16; TEMP 36.8; O2SAT 95
--- NOTE | 2024-06-10 06:55 | PM.PNGS ---
Subjective Subjective Date of Service: 06/10/24 <Parvez Ly - Last Filed: 06/10/24 07:09> 06/10/24 <Farrah Curran PA-C - Last Filed: 06/10/24 09:00> 06/11/24 <Markos Dubon MD - Last Filed: 06/11/24 08:06> Interval history: Daniel had some increased pain overnight managed w/ oral analgesics and an ice pack for his abdomen. He has been independently OOB to the bathroom, reports stool and flatus. Currently on PPN and clear liquid diet. Clear liquids, including water, not well-tolerated w/ some vomiting overnight, and gagging when I was in the room. IS still reaching 250mL on demonstration. Parvez Ly M3 <Parvez Ly - Last Filed: 06/10/24 07:09> Physical Exam Vital Signs: Vital Signs: Last Vital Signs Temp 98.3 F 06/10/24 03:51 Pulse 93 06/10/24 03:51 Resp 16 06/10/24 03:51 BP 156/85 H 06/10/24 03:51 Pulse Ox 95 06/10/24 03:51 O2 Del Method Room Air 06/10/24 03:51 O2 Flow Rate 2 06/03/24 10:42 BMI result Body Mass Index 24.9 <Parvez Ly - Last Filed: 06/10/24 07:09> Const: General: cooperative and comfortable <Parvez Ly - Last Filed: 06/10/24 07:09> Orientation/consciousness: patient oriented x3 <Parvez Ly Last Filed: 06/10/24 07:09> GI: Other: More distended than yesterday. Tympanic. Pain on light palpation of lower abdomen. <Parvez Ly - Last Filed: 06/10/24 07:09> Inspection: Yes abdominal wall ecchymosis and Yes distended <Parvez Ly Last Filed: 06/10/24 07:09> Palpation (GI): Tenderness to palpation present (GI), no guarding and not rigid <Parvez Ly - Last Filed: 06/10/24 07:09> Percussion: Yes tympanic to percussion <Parvez Ly Last Filed: 06/10/24 07:09> Auscultation: Hypoactive bowel sounds present <Parvez Ly - Last Filed: 06/10/24 07:09> Neuro: General: patient oriented x3 <Parvez Ly - Last Filed: 06/10/24 07:09> Objective Data Active Medications Amlodipine Besylate (Amlodipine Besylate 5 Mg Tablet) 5 mg PO DAILY [facility]; Protocol Last Admin: 06/09/24 07:13 Dose: 5 mg Documented By: KAREY Calcium Carbonate (Calcium Carbonate 750 Mg Tab.Chew) 750 mg PO Q4H PRN PRN Reason: Heartburn Last Admin: 06/07/24 09:52 Dose: 750 mg Documented By: PATTY Heparin Sodium (Porcine) (Heparin Sodium,Porcine 5,000 Unit/Ml Vial) 5,000 unit SUBCUT Q8H [facility] Last Admin: 06/10/24 03:33 Dose: 5,000 unit Documented By: SKY Hydromorphone HCl (Hydromorphone Hcl 0.5 Mg/0.5 Ml Syringe) 0.5 mg IVPUSH Q4H PRN; Protocol PRN Reason: Pain, Severe (Pain Scale 7-10) Last Admin: 06/10/24 03:31 Dose: 0.5 mg Documented By: SKY Lactated Ringer's (Lr) 1,000 mls @ 75 mls/hr IVCONT .[id number] [facility] Last Admin: 06/10/24 04:06 Dose: Not Given Documented By: SKY Non-Admin Reason: paused fpr PPN Nutrition (Parenteral) (Parenteral Nutrition) 840 mls @ 35 mls/hr IV .Q24H [facility]; Protocol Stop: 06/10/24 20:59 Last Admin: 06/09/24 19:42 Dose: 35 mls/hr Documented By: CLARENCE Magnesium Hydroxide (Milk Of Magnesia 30 Ml Oral.Susp) 30 ml PO DAILY PRN PRN Reason: Constipation Melatonin (Melatonin 3 Mg Tablet) 6 mg PO BEDTIME PRN PRN Reason: Insomnia Ondansetron HCl (Ondansetron Hcl 4 Mg/2 Ml Vial) 4 mg IVPUSH Q6H PRN PRN Reason: Nausea and Vomiting Last Admin: 06/08/24 10:27 Dose: 4 mg Documented By: PATTY Oxycodone HCl (Oxycodone Hcl Immed Release 5 Mg Tablet) 5 mg PO Q4H PRN PRN Reason: Pain, Moderate(Pain Scale 4-6) Last Admin: 06/10/24 06:27 Dose: 5 mg Documented By: SKY Pharmacy Consult (Consult Rx Parenteral Nutrition Ordering) 1 each MISCELLANE DAILY PRN PRN Reason: Consult order Promethazine HCl (Promethazine Hcl 25 Mg/Ml Vial) 12.5 mg IM Q6H PRN PRN Reason: Nausea and Vomiting Last Admin: 06/05/24 07:29 Dose: 12.5 mg Documented By: ELDON Sodium Chloride (0.9 % Sodium Chloride Flush 3 Ml Syringe) [facility] Last Admin: 06/10/24 00:53 Dose: Not Given Documented By: SKY Non-Admin Reason: IV Running <Parvez Ly - Last Filed: 06/10/24 07:09> Labs CBC & Chem 7: 06/09/24 07:53 06/11/24 05:38 <Parvez Ly - Last Filed: 06/10/24 07:09> Labs: Laboratory Results - last 24 hr 06/09/24 06/10/24 07:53 05:48 MCV 103.8 H MCH 37.0 H MCHC 35.6 RDW 13.7 Plt Count 109 L MPV 8.6 L Immature Gran % (Auto) Cancelled Neut % (Auto) Cancelled Lymph % (Auto) Cancelled [place] % (Auto) Cancelled Eos % (Auto) Cancelled Baso % (Auto) Cancelled Lymph # (Auto) Cancelled [place] # (Auto) Cancelled Eos # (Auto) Cancelled Baso # (Auto) Cancelled Abs Immat Gran (auto) Cancelled Absolute Neuts (auto) Cancelled Absolute Nucleated RBC 0.000 Nucleated RBC % (auto) 0.0 Neutrophils % (Manual) 62 Band Neutrophils % 7 H Lymphocytes % (Manual) 14 L Atypical Lymphs % (Man) 1 Monocytes % (Manual) 16 H Abs Neuts (Manual) 2.0 Lymphocytes # (Manual) 0.4 L Monocytes # (Manual) 0.5 Platelet Estimate DECREASED Plt Morphology Comment NORMAL RBC Morphology NOTED Macrocytosis 1+ (5-14) Hold Purple Top SEE NOTE Anion Gap 14 Estim Creat Clear Calc 78.0 Estimated GFR > 60 Fasting Glucose 92 Calcium 8.3 L <Parvez Aliyah - Last Filed: 06/10/24 07:09> Procedures Date of Service Date of Service: 06/10/24 <Parvez Ly - Last Filed: 06/10/24 07:09> 06/10/24 <Farrah Curran PA-C - Last Filed: 06/10/24 09:00> 06/11/24 <Markos Dubon MD - Last Filed: 06/11/24 08:06> Progress Note: A&P Assessment and plan (1) S/P colon resection: Status: Acute <Parvez Ly - Last Filed: 06/10/24 07:09> Assessment and Plan: as per nurse, no vomitting reported pt feels well seen ambulating independently looks well has loose stools abd soft and benign ok to try full liquids also note of ?new renal mass on CT - will workup with MRI as outpt seen and examined independently <Markos Dubon MD - Last Filed: 06/11/24 08:06> Assessment and Plan: POD7 s/p MARILYN right colectomy. VSS. H/H stable. Continued vomiting and poorly tolerating clear fluids, including water. Reports BM and flatus. Non-acute abdomen. Currently on PPN, continue. Continue IV fluids. Consider NG tube decompression for symptomatic relief. Continue OOB and IS. Parvez Ly M3 <aPrvez Ly - Last Filed: 06/10/24 07:09> POD7 s/p MARILYN right colectomy. VSS. H/H stable. Continued vomiting and poorly tolerating clear fluids, including water. Reports BM and flatus. Non-acute abdomen. Currently on PPN, continue. Continue IV fluids. Consider NG tube decompression for symptomatic relief. Continue OOB and IS. Parvez Ly M3 Improved this morning and tolerating liquids. Continues to have loose bowel movements. VSS. Abd is distended but softly. Advance to full liquids and then further as tolerated. Cont OOB/ambulation. Hypophosphatemia and hypokalemia this AM- will replete, cont PPN. BP has been persistently high- will increase norvasc to 10mg. If remains uncontrolled, will consult hospitalists. <Farrah Curran PA-C - Last Filed: 06/10/24 09:00> Time Spent With Patient Time: Total time managing care of this patient today ____ minutes. <Parvez Ly - Last Filed: 06/10/24 07:09> Quality Stroke Does the patient have a stroke diagnosis?: No <Parvez Myrick Last Filed: 06/10/24 07:09> VTE Prior VTE?: No <Parvez Myrick Last Filed: 06/10/24 07:09> VTE Risk Level:: Medical - moderate - high <Parvez Myrick Last Filed: 06/10/24 07:09> VTE Device Contraindication: N/A - Device Ordered <Parvez Waters Filed: 06/10/24 07:09> VTE Drug Contraindication: N/A - Med Ordered <Parvez Myrick Last Filed: 06/10/24 07:09>
[2024-06-10 07:05] LABS: Alanine Aminotransferase 42 U/L (0-40); Alkaline Phosphatase 48 U/L (39-117); Anion Gap 11 (12-20); Aspartate Amino Transferase 21 U/L (5-37); Bilirubin Total 0.8 mg/dL (0.0-1.0); Blood Urea Nitrogen 12 mg/dL (9-16); Calcium 8.4 mg/dL (8.4-10.2); Carbon Dioxide 26 mmol/L (22-29); Chloride 99 mmol/L (96-108); Creatinine Clr Calc Pharmacy 88.9; Estimated Glomerular Filt Rate > 60; Glucose Random 118 mg/dL (60-115); Magnesium 1.8 mg/dL (1.6-2.6); Potassium 3.2 mmol/L (3.3-5.1); Sodium 133 mmol/L (135-145); Total Protein 6.4 g/dL (6.5-8.0)
[2024-06-10 07:30] VITALS: BP 161/90; PULSE 96; RESP 16; TEMP 37.1; O2SAT 96
[2024-06-10] MEDS: amLODIPine Besylate 5 MG TABLET PO ×2 (07:31→09:12)
[2024-06-10] MEDS: Potassium Phosphate/NS 15 MMOL/250 ML PLAST..BAG 62.5 MMOL IV (09:12)
--- NOTE | 2024-06-10 09:46 | MHC.CLN ---
F/U DIET ADVANCED TO FULL LIQUID PT RECEIVED PPN YESTERDAY AT 35 ML PER HOUR PROVIDED 428KCALS, 36 G PROTEIN, 84 G DEXTROSE REVIEWED LABS DISCUSSED WITH PHARMACY PT TO CONTINUE PPN AT 35ML/HR TO PROVIDE 428KCALS, 36G PROTEIN, 84G DEXTROSE REPLETE LYTES NEEDED IN ADDITION, WILL ADD ENSURE BID TO PROVIDE 700KCALS, 40G PROTEIN WITH 100% ACCEPTANCE MONITOR PO INTAKE CLOSELY GOAL TO ADVANCE DIET TOLERATED PER
[2024-06-10] MEDS: Acetaminophen 325 MG TABLET 650 MG PO ×2 (13:27→19:34)
[2024-06-10] MEDS: Ibuprofen 600 MG TABLET PO ×2 (13:27→19:33)
--- NOTE | 2024-06-10 14:32 | PM.EVENT ---
Event Note Date of Service: 06/10/24 Event Note: says he is comfortable denies pain no vomitting abd mildly distended but soft trial of full liquids ambulate has BMs brother Wilfrido updated Time Spent With Patient Time: Total time managing care of this patient today ____ minutes.
[2024-06-10 15:42] VITALS: BP 177/91; PULSE 109; RESP 18; TEMP 36.6; O2SAT 94
[2024-06-10 15:58] VITALS: BP 161/88
--- NOTE | 2024-06-10 18:07 | PC.NURSE ---
pt ambulating in yin multiple times , pt oob to chair , pt unable to comprehend IS , pt encouraged to cough , pt expectorating thick green sputum . no nasuea or vomiting noted .
[2024-06-10 19:18] VITALS: BP 138/85; PULSE 110; RESP 20; TEMP 36.6; O2SAT 93
[2024-06-10] MEDS: ondansetron HCL 4 MG/2 ML VIAL IVPUSH (21:22)
[2024-06-10] MEDS: Parenteral Nutrition 840 ML 35 ML IV (22:22)
--- NOTE | 2024-06-11 00:01 | PC.NURSE ---
Pt continues to be coughing up alot of green/brown colored sputum, zofran given per JAN, slight effectiveness seen. made aware.
[2024-06-11] MEDS: Acetaminophen 325 MG TABLET 650 MG PO ×2 (01:20→12:58)
[2024-06-11] MEDS: Promethazine HCL 25 MG/ML VIAL 12.5 MG IM (01:20)
[2024-06-11] MEDS: Heparin Sodium,Porcine 5,000 UNIT/ML VIAL 5000 UNIT SUBCUT ×3 (01:21→18:07)
[2024-06-11] MEDS: HYDROmorphone HCl 0.5 MG/0.5 ML SYRINGE IVPUSH ×3 (03:09→22:15)
[2024-06-11 03:26] VITALS: BP 130/83; PULSE 113; RESP 20; TEMP 36.6; O2SAT 94
--- NOTE | 2024-06-11 07:02 | PM.PNGS ---
Subjective Subjective Date of Service: 06/11/24 <Parvez Aliyah - Last Filed: 06/11/24 07:59> 06/11/24 <Farrah Curran PA-C - Last Filed: 06/11/24 07:48> 06/11/24 <Markos Dubon MD - Last Filed: 06/11/24 08:08> Interval history: Nursing and Daniel both note vomiting overnight. Nursing notes that vomit is green in color. Daniel reports not tolerating the full liquid diet well, it causes pain that is relieved by vomiting. Has continued to have BMs and flatus. He has also been coughing with production of sputum. IS still at 250mL on observation. It seems his symptoms get better as the day goes on. Parvez Aliyah M3 <Parvez Aliyah - Last Filed: 06/11/24 07:59> Physical Exam Vital Signs: Vital Signs: Last Vital Signs Temp 97.8 F 06/11/24 03:26 Pulse 113 H 06/11/24 03:26 Resp 20 06/11/24 03:26 BP 130/83 06/11/24 03:26 Pulse Ox 94 06/11/24 03:26 O2 Del Method Room Air 06/11/24 03:26 O2 Flow Rate 2 06/03/24 10:42 BMI result Body Mass Index 24.9 <Parvez Aliyah - Last Filed: 06/11/24 07:59> Const: General: cooperative, comfortable and no acute distress <Parvez Aliyah - Last Filed: 06/11/24 07:59> Orientation/consciousness: patient oriented x3 <Parvez Aliyah - Last Filed: 06/11/24 07:59> GI: Other: Incisions are clean, ecchymosis surrounding. Appropriate incisional tenderness. No reported tenderness throughout abdomen. <Parvez Aliyah - Last Filed: 06/11/24 07:59> Inspection: Yes abdominal wall ecchymosis and Yes distended <Parvez Ly Last Filed: 06/11/24 07:59> Palpation (GI): nontender, no guarding and not rigid <Parvez Ly - Last Filed: 06/11/24 07:59> Percussion: Yes tympanic to percussion <Parvez Ly - Last Filed: 06/11/24 07:59> Auscultation: Hypoactive bowel sounds present <Parvez Ly - Last Filed: 06/11/24 07:59> Neuro: General: patient oriented x3 <Parvez Ly - Last Filed: 06/11/24 07:59> Objective Data Active Medications Acetaminophen (Acetaminophen 325 Mg Tablet) 650 mg PO Q6H [facility] Last Admin: 06/11/24 01:20 Dose: 650 mg Documented By: ROBBY Amlodipine Besylate (Amlodipine Besylate 10 Mg Tablet) 10 mg PO DAILY [facility]; Protocol Calcium Carbonate (Calcium Carbonate 750 Mg Tab.Chew) 750 mg PO Q4H PRN PRN Reason: Heartburn Last Admin: 06/07/24 09:52 Dose: 750 mg Documented By: PATTY Heparin Sodium (Porcine) (Heparin Sodium,Porcine 5,000 Unit/Ml Vial) 5,000 unit SUBCUT Q8H [facility] Last Admin: 06/11/24 01:21 Dose: 5,000 unit Documented By: ROBBY Hydromorphone HCl (Hydromorphone Hcl 0.5 Mg/0.5 Ml Syringe) 0.5 mg IVPUSH Q4H PRN; Protocol PRN Reason: Pain, Severe (Pain Scale 7-10) Last Admin: 06/11/24 03:09 Dose: 0.5 mg Documented By: ROBBY Nutrition (Parenteral) (Parenteral Nutrition) 840 mls @ 35 mls/hr IV .Q24H [facility]; Protocol Stop: 06/11/24 20:59 Last Admin: 06/10/24 22:22 Dose: 35 mls/hr Documented By: ROBBY Ibuprofen (Ibuprofen 600 Mg Tablet) 600 mg PO TID [facility] Last Admin: 06/10/24 19:33 Dose: 600 mg Documented By: ROBBY Magnesium Hydroxide (Milk Of Magnesia 30 Ml Oral.Susp) 30 ml PO DAILY PRN PRN Reason: Constipation Melatonin (Melatonin 3 Mg Tablet) 6 mg PO BEDTIME PRN PRN Reason: Insomnia Ondansetron HCl (Ondansetron Hcl 4 Mg/2 Ml Vial) 4 mg IVPUSH Q6H PRN PRN Reason: Nausea and Vomiting Last Admin: 06/10/24 21:22 Dose: 4 mg Documented By: ROBBY Oxycodone HCl (Oxycodone Hcl Immed Release 5 Mg Tablet) 5 mg PO Q4H PRN PRN Reason: Pain, Moderate(Pain Scale 4-6) Last Admin: 06/10/24 10:33 Dose: 5 mg Documented By: ELDON Pharmacy Consult (Consult Rx Parenteral Nutrition Ordering) 1 each MISCELLANE DAILY PRN PRN Reason: Consult order Promethazine HCl (Promethazine Hcl 25 Mg/Ml Vial) 12.5 mg IM Q6H PRN PRN Reason: Nausea and Vomiting Last Admin: 06/11/24 01:20 Dose: 12.5 mg Documented By: ROBBY Sodium Chloride (0.9 % Sodium Chloride Flush 3 Ml Syringe) 3 ml IVFLUSH QSHIFT [facility] Last Admin: 06/11/24 06:27 Dose: Not Given Documented By: ELDON Non-Admin Reason: IV Running <Parvez Ly - Last Filed: 06/11/24 07:59> Labs CBC & Chem 7: 06/09/24 07:53 06/11/24 05:38 <Parvez Ly - Last Filed: 06/11/24 07:59> Labs: Laboratory Results - last 24 hr 06/10/24 05:48 Anion Gap 11 L Estim Creat Clear Calc 88.9 Estimated GFR > 60 Random Glucose 118 H Calcium 8.4 Phosphorus 2.0 L Magnesium 1.8 Total Bilirubin 0.8 AST 21 ALT 42 H Alkaline Phosphatase 48 Total Protein 6.4 L Albumin 3.0 L <Parvez yL - Last Filed: 06/11/24 07:59> Procedures Date of Service Date of Service: 06/11/24 <Parvez Ly - Last Filed: 06/11/24 07:59> 06/11/24 <Farrah Curran PA-C - Last Filed: 06/11/24 07:48> 06/11/24 <Markos Dubon MD - Last Filed: 06/11/24 08:08> Progress Note: A&P Assessment and plan (1) S/P colon resection: Status: Acute <Parvez Ly - Last Filed: 06/11/24 07:59> Assessment and Plan: Vomiting reported overnight after advancement to full liquids NG tube placed this morning with large amounts output Abdomen currently soft and benign He otherwise looks comfortable no We will keep NPO, okay to have ice chips PICC line and TPN Encouraged ambulation We will update brother Seen and examined independently <Markos Dubon MD - Last Filed: 06/11/24 08:08> Assessment and Plan: Daniel overall appears well. His BP is down w/ increased norvasc. He does not appear to be tolerating a full liquid diet well, he has pain relieved by vomiting. His abdomen is distended and tympanic, but non-tender, no rigidity, no guarding. It appears he gets better as the day progresses, consider NG tube. Continue PPN and IV liquids. Parvez Ly M3 Patient diaphoretic, increasingly uncomfortable this morning. Vomiting overnight reported. Abd is increasingly distended. NGT therefore inserted with immediate evacuation of >800cc dark enteric output. Will order for PICC line, begin TPN. Cont OOB/ambulation. Per nursing, coughing up thick sputum, will obtain CXR. Encouraged incentive spirometer. <Parvez Ly - Last Filed: 06/11/24 07:59> Daniel overall appears well. His BP is down w/ increased norvasc. He does not appear to be tolerating a full liquid diet well, he has pain relieved by vomiting. His abdomen is distended and tympanic, but non-tender, no rigidity, no guarding. It appears he gets better as the day progresses, continue full liquid diet at this time. Continue PPN and IV liquids. Parvez Ly M3 Patient diaphoretic, increasingly uncomfortable this morning. Vomiting overnight reported. Abd is increasingly distended. NGT therefore inserted with immediate evacuation of >800cc dark enteric output. Will order for PICC line, begin TPN. Cont OOB/ambulation. Per nursing, coughing up thick sputum, will obtain CXR. Encouraged incentive spirometer. <Farrah Curran PA-C - Last Filed: 06/11/24 07:48> Time Spent With Patient Time: Total time managing care of this patient today ____ minutes. <Parvez Ly - Last Filed: 06/11/24 07:59> Quality Stroke Does the patient have a stroke diagnosis?: No <Parvez Ly - Last Filed: 06/11/24 07:59> VTE Prior VTE?: No <Parvez Ly - Last Filed: 06/11/24 07:59> VTE Risk Level:: Medical - moderate - high <Parvez Ly - Last Filed: 06/11/24 07:59> VTE Device Contraindication: N/A - Device Ordered <Parvez Ly - Last Filed: 06/11/24 07:59> VTE Drug Contraindication: N/A - Med Ordered <Parvez Ly - Last Filed: 06/11/24 07:59>
[2024-06-11 07:12] LABS: Alanine Aminotransferase 37 U/L (0-40); Albumin Level 3.1 g/dL (3.5-5.0); Alkaline Phosphatase 52 U/L (39-117); Anion Gap 16 (12-20); Aspartate Amino Transferase 27 U/L (5-37); Bilirubin Total 0.9 mg/dL (0.0-1.0); Blood Urea Nitrogen 25 mg/dL (9-16); Calcium 9.4 mg/dL (8.4-10.2); Carbon Dioxide 31 mmol/L (22-29); Chloride 93 mmol/L (96-108); Estimated Glomerular Filt Rate 46; Glucose Random 167 mg/dL (60-115); Magnesium 2.1 mg/dL (1.6-2.6); Phosphorus 3.9 mg/dL (2.7-4.5); Potassium 3.5 mmol/L (3.3-5.1); Sodium 136 mmol/L (135-145); Total Protein 6.9 g/dL (6.5-8.0)
[2024-06-11 07:18] VITALS: BP 128/80; PULSE 106; RESP 18; TEMP 36.3; O2SAT 93
--- NOTE | 2024-06-11 08:53 | MHC.CLN ---
F/U PATIENT IS NPO, NOT TOLERATING FULL LIQUID DIET. CONTINUE PARENTERAL NUTRITION. REVIEWED LABS. COMMUNICATED WITH PHARMACY. PATIENT SCHEDULED FOR PICC LINE TODAY AND TO START TPN. RECOMMEND TPN AT 45 ML PER HOUR TO PROVIDE 767 KCALS, 54 G PROTEIN, 162 G DEXTROSE. REPLETE LYTES NEEDED. CHECK TRIGLYCERIDES. IF NO PICC LINE TODAY, RECOMMEND INCREASE PPN TO 55 ML PER HOUR TO PROVIDE 673 KCALS, 56 G PROTEIN, 132 G DEXTROSE. MONITOR TPN/PPN TOLERANCE, LYTES, GI STATUS.
[2024-06-11] MEDS: amLODIPine Besylate 10 MG TABLET PO (09:13)
--- NOTE | 2024-06-11 09:52 | MHC.CM.PN ---
Patient not medically cleared for dc. Per surgery note, will need PICC/TPN. Per surgery PA, will not need on dc. CM will continue to follow.
[2024-06-11 15:05] VITALS: BP 134/75; PULSE 99; RESP 18; TEMP 36.9; O2SAT 92
--- NOTE | 2024-06-11 15:30 | PM.EVENT ---
Event Note Date of Service: 06/11/24 Event Note: Seen on afternoon rounds Abdomen is much softer and less distended Very benign exam NG tube output has decreased He looks comfortable PICC line today and TPN Await return of GI function NG tube shows the tip to be in the stomach Continue NG tube to low wall suction for now, IV fluids His brother Wilfrido was at bedside, updated Time Spent With Patient Time: Total time managing care of this patient today ____ minutes.
--- NOTE | 2024-06-11 17:00 | HO.PICC ---
[facility] Diagnosis: PostOp Ileus Indication: TPN Pertinent Labs: Reviewed Technique: Following informed consent including risks, benefits and alternatives and using sterile technique including cap and mask, sterile gown, glove and drape, the left arm was prepped and draped in the usual sterile fashion of full barrier technique with CHG. Following completion of [place] Protocol the skin and soft tissues were anesthetized with 1% Lidocaine plain. Using ultrasound guidance, brachial vein access was obtained. Over an 0.018 wire through peel-away sheath, a 5FR double lumen PASV PICC line was positioned. Catheter length is 37cm internal length, 0cm external length, for a total trimmed length of 37cm. The procedure was performed in 272. Tip verification was performed by Elder Cannon with Sherlock 3CG. Tip located in SVC. Ultrasound was used to document vein patency and for needle entry. A formal ultrasound picture and cardiac rhythm strip was recorded. [facility] [employer] has released the line for use and it is currently dressed with a StatLock, Tegaderm, and CHG disc. Verification has been performed for blood return and line patency. Arm Circumference: 27cm Equipment: [employer] PowerPICC SOLO Catheter with Sherlock 3CG Catheter Type: 5FR double lumen PASV catheter Lot #: [id number]
[2024-06-11] MEDS: Lactated Ringers 500 ML 999 ML IV (17:03)
[2024-06-11 19:20] VITALS: BP 127/69; PULSE 100; RESP 18; TEMP 37.2; O2SAT 94
[2024-06-11] MEDS: Parenteral Nutrition 1,320 ML 55 ML IV (23:08)
[2024-06-12] MEDS: Heparin Sodium,Porcine 5,000 UNIT/ML VIAL 5000 UNIT SUBCUT ×3 (02:07→17:53)
[2024-06-12] MEDS: HYDROmorphone HCl 0.5 MG/0.5 ML SYRINGE IVPUSH ×3 (02:14→15:56)
[2024-06-12 02:44] VITALS: RESP 18
[2024-06-12 04:00] VITALS: BP 129/71; PULSE 86; RESP 18; TEMP 36.3; O2SAT 93
[2024-06-12 06:42] LABS: Alanine Aminotransferase 30 U/L (0-40); Albumin Level 2.7 g/dL (3.5-5.0); Alkaline Phosphatase 46 U/L (39-117); Anion Gap 11 (12-20); Aspartate Amino Transferase 25 U/L (5-37); Bilirubin Total 0.5 mg/dL (0.0-1.0); Blood Urea Nitrogen 34 mg/dL (9-16); Calcium 7.9 mg/dL (8.4-10.2); Carbon Dioxide 31 mmol/L (22-29); Chloride 100 mmol/L (96-108); Creatinine Clr Calc Pharmacy 55.6; Estimated Glomerular Filt Rate > 60; Glucose Random 127 mg/dL (60-115); Magnesium 2.3 mg/dL (1.6-2.6); Phosphorus 3.2 mg/dL (2.7-4.5); Potassium 3.9 mmol/L (3.3-5.1); Sodium 138 mmol/L (135-145); Total Protein 5.8 g/dL (6.5-8.0); Triglycerides 112 mg/dL (<150)
[2024-06-12 06:49] VITALS: RESP 18
--- NOTE | 2024-06-12 06:58 | PM.PNGS ---
Subjective Subjective Date of Service: 06/12/24 <Parvez Ly - Last Filed: 06/12/24 07:36> 06/12/24 <Farrah Curran PA-C - Last Filed: 06/12/24 07:48> 06/12/24 <Markos Dubon MD - Last Filed: 06/12/24 08:16> Interval history: Daniel had some pain overnight and required IV dilaudid 3x. His pain is an 8/10, but improved with analgesics. NG tube on low intermittent suction. Nursing reports ~16 hour NG tube output of 500mL, brown and bloody. Patient reports no nausea or vomiting. No BM overnight, but has passed flatus. IS continues to reach 250mL on observation. Nursing reports continued cough w/ phlegm production. Continues to produce urine, patricia colored. Parvez Aliyah M3 <Parvez Ly - Last Filed: 06/12/24 07:36> Physical Exam Vital Signs: Vital Signs: Last Vital Signs Temp 97.3 F 06/12/24 04:00 Pulse 86 06/12/24 04:00 Resp 18 06/12/24 04:00 BP 129/71 06/12/24 04:00 Pulse Ox 93 06/12/24 04:00 O2 Del Method Room Air 06/12/24 04:00 O2 Flow Rate 2 06/03/24 10:42 BMI result Body Mass Index 24.9 <Parvez Ly - Last Filed: 06/12/24 07:36> Const: General: cooperative and no acute distress <Parvez Ly - Last Filed: 06/12/24 07:36> GI: Other: Abdomen appears less distended than yesterday. Incisions w/o discharge, surrounding echymossis. <Parvez Ly - Last Filed: 06/12/24 07:36> Inspection: Yes abdominal wall ecchymosis and Yes distended (less distention than days prior) <Parvez Ly - Last Filed: 06/12/24 07:36> Palpation (GI): nontender, no guarding and not rigid <Parvez Ly - Last Filed: 06/12/24 07:36> Percussion: Yes tympanic to percussion <Parvez Ly - Last Filed: 06/12/24 07:36> Objective Data Active Medications Acetaminophen (Acetaminophen 325 Mg Tablet) 650 mg PO Q6H [facility] Last Admin: 06/12/24 01:40 Dose: Not Given Documented By: AMY Non-Admin Reason: ngt present, per surgeon give prn only Amlodipine Besylate (Amlodipine Besylate 10 Mg Tablet) 10 mg PO DAILY [facility]; Protocol Last Admin: 06/11/24 09:13 Dose: 10 mg Documented By: SUKUMAR Calcium Carbonate (Calcium Carbonate 750 Mg Tab.Chew) 750 mg PO Q4H PRN PRN Reason: Heartburn Last Admin: 06/07/24 09:52 Dose: 750 mg Documented By: PATTY Heparin Sodium (Porcine) (Heparin Sodium,Porcine 5,000 Unit/Ml Vial) 5,000 unit SUBCUT Q8H [facility] Last Admin: 06/12/24 02:07 Dose: 5,000 unit Documented By: AMY Hydromorphone HCl (Hydromorphone Hcl 0.5 Mg/0.5 Ml Syringe) 0.5 mg IVPUSH Q4H PRN; Protocol PRN Reason: Pain, Severe (Pain Scale 7-10) Last Admin: 06/12/24 06:19 Dose: 0.5 mg Documented By: AMY Nutrition (Parenteral) (Parenteral Nutrition) 1,320 mls @ 55 mls/hr IV .Q24H [facility]; Protocol Stop: 06/12/24 20:59 Last Admin: 06/11/24 23:08 Dose: 55 mls/hr Documented By: AMY Ibuprofen (Ibuprofen 600 Mg Tablet) 600 mg PO TID [facility] Last Admin: 06/11/24 20:52 Dose: Not Given Documented By: AMY Non-Admin Reason: called surgeon, ngt now give prn only Magnesium Hydroxide (Milk Of Magnesia 30 Ml Oral.Susp) 30 ml PO DAILY PRN PRN Reason: Constipation Melatonin (Melatonin 3 Mg Tablet) 6 mg PO BEDTIME PRN PRN Reason: Insomnia Ondansetron HCl (Ondansetron Hcl 4 Mg/2 Ml Vial) 4 mg IVPUSH Q6H PRN PRN Reason: Nausea and Vomiting Last Admin: 06/10/24 21:22 Dose: 4 mg Documented By: ROBBY Oxycodone HCl (Oxycodone Hcl Immed Release 5 Mg Tablet) 5 mg PO Q4H PRN PRN Reason: Pain, Moderate(Pain Scale 4-6) Last Admin: 06/10/24 10:33 Dose: 5 mg Documented By: ELDON Pharmacy Consult (Consult Rx Parenteral Nutrition Ordering) 1 each MISCELLANE DAILY PRN PRN Reason: Consult order Promethazine HCl (Promethazine Hcl 25 Mg/Ml Vial) 12.5 mg IM Q6H PRN PRN Reason: Nausea and Vomiting Last Admin: 06/11/24 01:20 Dose: 12.5 mg Documented By: ROBBY Sodium Chloride (0.9 % Sodium Chloride Flush 3 Ml Syringe) [facility] Last Admin: 06/11/24 22:16 Dose: Not Given Documented By: AMY Non-Admin Reason: picc line flush only <Parvez Ly - Last Filed: 06/12/24 07:36> Labs CBC & Chem 7: 06/09/24 07:53 06/12/24 06:02 <Parvez Ly - Last Filed: 06/12/24 07:36> Labs: Laboratory Results - last 24 hr 06/11/24 06/12/24 05:38 06:02 Hold Purple Top SEE NOTE Anion Gap 16 11 L Estim Creat Clear Calc 41.0 55.6 Estimated GFR 46 > 60 Random Glucose 167 H 127 H Calcium 9.4 D 7.9 L D Phosphorus 3.9 3.2 Magnesium 2.1 2.3 Total Bilirubin 0.9 0.5 AST 27 25 ALT 37 30 Alkaline Phosphatase 52 46 Total Protein 6.9 5.8 L Albumin 3.1 L 2.7 L Triglycerides 112 <Parvez Ly - Last Filed: 06/12/24 07:36> Procedures Date of Service Date of Service: 06/12/24 <Parvez Ly - Last Filed: 06/12/24 07:36> 06/12/24 <Farrah Curran PA-C - Last Filed: 06/12/24 07:48> 06/12/24 <Markos Dubon MD - Last Filed: 06/12/24 08:16> Progress Note: A&P Assessment and plan (1) Ileus, postoperative: Status: Acute <Parvez Ly - Last Filed: 06/12/24 07:36> Assessment and Plan: NG tube output less and clear - patient has been taking ice chips Abdomen soft and benign He looks comfortable today Keep NG tube in place - we have advanced this by about 2 cm Out of bed, ambulate TPN today Await for return of GI function Seen and examined independently Brother at bedside, updated <Markos Dubon MD - Last Filed: 06/12/24 08:16> (2) S/P colon resection: Status: Acute <Parvez Ly - Last Filed: 06/12/24 07:36> Assessment and Plan: POD9 s/p MARILYN right colectomy. Yesterdays chest x-ray normal. Electrolytes appear normal. VSS. Abdominal distention is improving. No reported nausea or vomiting. Increased pain today, continue pain regimen. PICC line place, begin TPN. Continue NG tube for now. More frequent monitoring of NG tube output is required prior to d/c. Parvez Aliyah M3 <Parvez Ly - Last Filed: 06/12/24 07:36> POD9 s/p MARILYN right colectomy. Yesterdays chest x-ray normal. Electrolytes appear normal. VSS. Abdominal distention is improving. No reported nausea or vomiting. Increased pain today, continue pain regimen. PICC line place, begin TPN. Continue NG tube for now. More frequent monitoring of NG tube output is required prior to d/c. Parvez Ly M3 Seen independently and agree with Aliyah MS-3. Patient appears improved this morning, more comfortable. NGT continues with high output. Abd remains distended but decreasingly and remains soft. Cont NGT for now, TPN. Encouraged OOB/ambulation. CXR no evidence of acute disease. Cont incentive spirometer. Await more continuous GI function. Plan discussed with patient and brother. <Farrah Curran PA-C - Last Filed: 06/12/24 07:48> Time Spent With Patient Time: Total time managing care of this patient today ____ minutes. <Parvez Ly - Last Filed: 06/12/24 07:36> Quality Stroke Does the patient have a stroke diagnosis?: No <Parvez Ly - Last Filed: 06/12/24 07:36> VTE Prior VTE?: No <Parvez Ly - Last Filed: 06/12/24 07:36> VTE Risk Level:: Medical - moderate - high <Parvez Ly - Last Filed: 06/12/24 07:36> VTE Device Contraindication: N/A - Device Ordered <Parvez Ly - Last Filed: 06/12/24 07:36> VTE Drug Contraindication: N/A - Med Ordered <Parvez Ly - Last Filed: 06/12/24 07:36>
[2024-06-12 07:52] VITALS: BP 118/67; PULSE 95; RESP 18; TEMP 36.9; O2SAT 91
[2024-06-12] MEDS: Acetaminophen 1,000 MG/100 ML PIGGYBACK 400 MG IV ×3 (08:11→19:44)
[2024-06-12] MEDS: amLODIPine Besylate 10 MG TABLET PO (08:12)
[2024-06-12] MEDS: 0.9 % Sodium Chloride Flush 3 ML SYRINGE IVFLUSH ×2 (08:29→15:57)
--- NOTE | 2024-06-12 10:29 | MHC.CLN ---
F/U PT RECEIVED PICC LINE LAST EVENING REVIEWED LABS DISCUSSED WITH PHARMACY RECOMMEND TPN AT 65 ML PER HOUR WITH 65G LIPIDS TO PROVIDE 1748 TOTAL KCALS, 78 G PROTEIN, 234G DEXTROSE REPLETE LYTES NEEDED
[2024-06-12] MEDS: Lactated Ringers 1,000 ML 999 ML IV (13:06)
--- NOTE | 2024-06-12 14:34 | PM.EVENT ---
Event Note Date of Service: 06/12/24 Event Note: Seen on afternoon rounds Remains comfortable On recliner Abdomen soft and benign NG tube output seems to be decreasing Increase physical activity, get out of bed and ambulate TPN Given bolus of IV fluids for increase in BUN, high output from the NG tube yesterday Time Spent With Patient Time: Total time managing care of this patient today ____ minutes.
[2024-06-12 15:16] VITALS: BP 143/78; PULSE 94; RESP 18; TEMP 37.1; O2SAT 94
[2024-06-12] MEDS: 0.9 % Sodium Chloride Flush 10 ML SYRINGE 5 ML IVFLUSH ×2 (15:57→20:05)
[2024-06-12 19:31] VITALS: BP 133/67; PULSE 95; RESP 18; TEMP 37.2; O2SAT 94
[2024-06-12] MEDS: Parenteral Nutrition 1,560 ML 65 ML IV (23:24)
[2024-06-13] MEDS: Acetaminophen 1,000 MG/100 ML PIGGYBACK 400 MG IV ×3 (01:56→13:43)
[2024-06-13] MEDS: Heparin Sodium,Porcine 5,000 UNIT/ML VIAL 5000 UNIT SUBCUT ×3 (02:01→17:49)
[2024-06-13 03:31] VITALS: BP 146/78; PULSE 83; RESP 18; TEMP 36.8; O2SAT 95
[2024-06-13 06:25] LABS: Alanine Aminotransferase 32 U/L (0-40); Albumin Level 2.6 g/dL (3.5-5.0); Alkaline Phosphatase 53 U/L (39-117); Anion Gap 8 (12-20); Aspartate Amino Transferase 28 U/L (5-37); Bilirubin Total 0.5 mg/dL (0.0-1.0); Blood Urea Nitrogen 23 mg/dL (9-16); Calcium 7.7 mg/dL (8.4-10.2); Carbon Dioxide 32 mmol/L (22-29); Chloride 103 mmol/L (96-108); Creatinine Clr Calc Pharmacy 85.3; Estimated Glomerular Filt Rate > 60; Glucose Random 129 mg/dL (60-115); Magnesium 1.9 mg/dL (1.6-2.6); Phosphorus 2.3 mg/dL (2.7-4.5); Potassium 3.7 mmol/L (3.3-5.1); Sodium 139 mmol/L (135-145); Total Protein 5.6 g/dL (6.5-8.0)
--- NOTE | 2024-06-13 07:08 | PM.PNGS ---
Subjective Subjective Date of Service: 06/13/24 <Parvez Ly - Last Filed: 06/13/24 07:32> 06/13/24 <Farrah Curran PA-C - Last Filed: 06/13/24 07:46> 06/13/24 <Markos Dubon MD - Last Filed: 06/13/24 09:26> Interval history: Daniel is doing better this morning, no acute overnight events. His pain is now better and has not been requesting dilaudid. He is now on TPN. He has had four BMs through the night, they were watery. Has been passing flatus. He notes a little nausea but no vomiting. NG tube producing brown fluid ~600mL over a 13 hour period. IS reaching 350mL on observation. Parvez Ly M3 <Parvez Ly - Last Filed: 06/13/24 07:32> Physical Exam Vital Signs: Vital Signs: Last Vital Signs Temp 98.3 F 06/13/24 03:31 Pulse 83 06/13/24 03:31 Resp 18 06/13/24 03:31 BP 146/78 H 06/13/24 03:31 Pulse Ox 95 06/13/24 03:31 O2 Del Method Room Air 06/13/24 03:31 O2 Flow Rate 2 06/03/24 10:42 BMI result Body Mass Index 24.9 <Pravez Ly - Last Filed: 06/13/24 07:32> GI: Other: Incision clean and dry. There appears to be some new abdominal bruising. Abdomen is soft on palpation, but tympanic. Reports no tenderness to palpation. <Parvez Ly - Last Filed: 06/13/24 07:32> Inspection: Yes abdominal wall ecchymosis and Yes distended (mildly) <Parvez Ly - Last Filed: 06/13/24 07:32> Palpation (GI): Soft to palpation, nontender, no guarding and not rigid <Parvez Ly - Last Filed: 06/13/24 07:32> Percussion: Yes tympanic to percussion <Parvez Myrick Last Filed: 06/13/24 07:32> Objective Data Active Medications Amlodipine Besylate (Amlodipine Besylate 10 Mg Tablet) 10 mg PO DAILY [facility]; Protocol Last Admin: 06/12/24 08:12 Dose: 10 mg Documented By: SUKUMAR Calcium Carbonate (Calcium Carbonate 750 Mg Tab.Chew) 750 mg PO Q4H PRN PRN Reason: Heartburn Last Admin: 06/07/24 09:52 Dose: 750 mg Documented By: PATTY Heparin Sodium (Porcine) (Heparin Sodium,Porcine 5,000 Unit/Ml Vial) 5,000 unit SUBCUT Q8H [facility] Last Admin: 06/13/24 02:01 Dose: 5,000 unit Documented By: AMY Hydromorphone HCl (Hydromorphone Hcl 0.5 Mg/0.5 Ml Syringe) 0.5 mg IVPUSH Q4H PRN; Protocol PRN Reason: Pain, Severe (Pain Scale 7-10) Last Admin: 06/12/24 15:56 Dose: 0.5 mg Documented By: SUKUMAR Acetaminophen (Ofirmev) 1,000 mg in 100 mls @ 400 mls/hr IV Q6H [facility] Last Infusion: 06/13/24 02:11 Dose: Infused Documented By: AMY Nutrition (Parenteral) (Parenteral Nutrition) 1,560 mls @ 65 mls/hr IV .Q24H [facility]; Protocol Stop: 06/13/24 20:59 Last Admin: 06/12/24 23:24 Dose: 65 mls/hr Documented By: AMY Magnesium Hydroxide (Milk Of Magnesia 30 Ml Oral.Susp) 30 ml PO DAILY PRN PRN Reason: Constipation Melatonin (Melatonin 3 Mg Tablet) 6 mg PO BEDTIME PRN PRN Reason: Insomnia Ondansetron HCl (Ondansetron Hcl 4 Mg/2 Ml Vial) 4 mg IVPUSH Q6H PRN PRN Reason: Nausea and Vomiting Last Admin: 06/10/24 21:22 Dose: 4 mg Documented By: ROBBY Oxycodone HCl (Oxycodone Hcl Immed Release 5 Mg Tablet) 5 mg PO Q4H PRN PRN Reason: Pain, Moderate(Pain Scale 4-6) Last Admin: 06/10/24 10:33 Dose: 5 mg Documented By: ELDON Pharmacy Consult (Consult Rx Parenteral Nutrition Ordering) 1 each MISCELLANE DAILY PRN PRN Reason: Consult order Promethazine HCl (Promethazine Hcl 25 Mg/Ml Vial) 12.5 mg IM Q6H PRN PRN Reason: Nausea and Vomiting Last Admin: 06/11/24 01:20 Dose: 12.5 mg Documented By: ROBBY Sodium Chloride (0.9 % Sodium Chloride Flush 3 Ml Syringe) 3 ml IVFLUSH QSHIFT [facility] Last Admin: 06/12/24 23:46 Dose: Not Given Documented By: AMY Non-Admin Reason: picc line flush only Sodium Chloride (0.9 % Sodium Chloride Flush 10 Ml Syringe) 5 ml IVFLUSH TID [facility] Last Admin: 06/12/24 20:05 Dose: 5 ml Documented By: AMY <Parvez Ly - Last Filed: 06/13/24 07:32> Labs CBC & Chem 7: 06/09/24 07:53 06/13/24 05:00 <Parvez Ly - Last Filed: 06/13/24 07:32> Labs: Laboratory Results - last 24 hr 06/13/24 05:00 Anion Gap 8 L Estim Creat Clear Calc 85.3 Estimated GFR > 60 Random Glucose 129 H Calcium 7.7 L Phosphorus 2.3 L Magnesium 1.9 Total Bilirubin 0.5 AST 28 ALT 32 Alkaline Phosphatase 53 Total Protein 5.6 L Albumin 2.6 L <Parvez Ly - Last Filed: 06/13/24 07:32> Procedures Date of Service Date of Service: 06/13/24 <Parvez Ly - Last Filed: 06/13/24 07:32> 06/13/24 <Farrah Curran PA-C - Last Filed: 06/13/24 07:46> 06/13/24 <Markos Dubon MD - Last Filed: 06/13/24 09:26> Progress Note: A&P Assessment and plan (1) Ileus, postoperative: Status: Acute <Parvez Ly - Last Filed: 06/13/24 07:32> Assessment and Plan: Looks comfortable Ambulating Says he is passing BMs NG tube output appears to be more of ice chips being taken in Abdomen soft and benign Clamp NG tube and evaluate after a few hours Doing well overall Seen and examined independently <Markos Dubon MD - Last Filed: 06/13/24 09:26> (2) S/P colon resection: Status: Acute <Parvez Ly - Last Filed: 06/13/24 07:32> Assessment and Plan: VS indicate hypertension early this AM, otherwise stable. Continue to monitor. Bowel function appears to have returned, output less and more clear. Consider removal of NG tube. Consider clear liquids. Continue current pain management. Cont OOB/ambulation. Encouraged incentive spirometer. Parvez Ly M3 <Parvez Ly - Last Filed: 06/13/24 07:32> VS indicate hypertension early this AM, otherwise stable. Continue to monitor. Bowel function appears to have returned, output less and more clear. Consider removal of NG tube. Consider clear liquids. Continue current pain management. Cont OOB/ambulation. Encouraged incentive spirometer. Parvez Ly M3 Patient appearing more comfortable this am, less distended. BM overnight. NGT output decreased and more clear appearing suggestive of ice chips. Will clamp NGT, reassess in 4 hrs. Remove if output <100cc. Unclamp sooner if develops worsening pain, distention, nausea/vomiting. Continue to encourage ambulation. Patient comfortable with plan. <Farrah Curran PA-C - Last Filed: 06/13/24 07:46> Time Spent With Patient Time: Total time managing care of this patient today ____ minutes. <Parvez Ly - Last Filed: 06/13/24 07:32> Quality Stroke Does the patient have a stroke diagnosis?: No <Parvez Ly - Last Filed: 06/13/24 07:32> VTE Prior VTE?: No <Parvez Ly - Last Filed: 06/13/24 07:32> VTE Risk Level:: Medical - moderate - high <Parvez Ly - Last Filed: 06/13/24 07:32> VTE Device Contraindication: N/A - Device Ordered <Parvez Ly - Last Filed: 06/13/24 07:32> VTE Drug Contraindication: N/A - Med Ordered <Parvez Ly - Last Filed: 06/13/24 07:32>
[2024-06-13 07:28] VITALS: BP 137/72; PULSE 80; RESP 18; TEMP 37; O2SAT 95
[2024-06-13] MEDS: amLODIPine Besylate 10 MG TABLET PO (08:31)
--- NOTE | 2024-06-13 11:17 | MHC.CLN ---
F/U REVIEWED LABS DISCUSSED WITH PHARMACY PT RECEIVING TPN AT MAX GOAL RATE 65 ML PER HOUR WITH 65G LIPIDS PROVIDES 1748 TOTAL KCALS, 78 G PROTEIN, 234G DEXTROSE REPLETE LYTES NEEDED CONTINUE AT MAX GOAL RATE THROUGH [address] CAN BE REACHED VIA [employer] IF NEEDED DURING OFF HOURS
--- NOTE | 2024-06-13 11:35 | MHC.CM.PN ---
EMR reviewed and per MD rounds, pt is not medically cleared for discharge due to management of post-op care with NG tube in place.
--- NOTE | 2024-06-13 14:45 | PM.EVENT ---
Event Note Date of Service: 06/13/24 Event Note: Seen on afternoon rounds NG tube and clamped and put on suction -no significant residual at all I therefore removed the NG tube We will start on clear liquids again Abdomen remained soft and very benign He is passing stools Looks well overall and is ambulating Continue TPN Time Spent With Patient Time: Total time managing care of this patient today ____ minutes.
[2024-06-13 15:55] VITALS: BP 138/73; PULSE 75; RESP 18; TEMP 36.8; O2SAT 98
[2024-06-13] MEDS: 0.9 % Sodium Chloride Flush 10 ML SYRINGE 5 ML IVFLUSH (19:34)
[2024-06-13 19:37] VITALS: BP 135/73; PULSE 80; RESP 20; TEMP 37.1; O2SAT 97
[2024-06-13] MEDS: Parenteral Nutrition 1,560 ML 65 ML IV (21:00)
[2024-06-14] MEDS: Acetaminophen 1,000 MG/100 ML PIGGYBACK 400 MG IV ×2 (01:45→08:00)
[2024-06-14] MEDS: Heparin Sodium,Porcine 5,000 UNIT/ML VIAL 5000 UNIT SUBCUT ×3 (01:46→17:51)
[2024-06-14 03:57] VITALS: BP 117/69; PULSE 70; RESP 18; TEMP 36.6; O2SAT 96
[2024-06-14 06:55] LABS: Alanine Aminotransferase 33 U/L (0-40); Albumin Level 2.5 g/dL (3.5-5.0); Alkaline Phosphatase 52 U/L (39-117); Anion Gap 13 (12-20); Aspartate Amino Transferase 31 U/L (5-37); Bilirubin Total 0.4 mg/dL (0.0-1.0); Blood Urea Nitrogen 17 mg/dL (9-16); Calcium 8.4 mg/dL (8.4-10.2); Carbon Dioxide 23 mmol/L (22-29); Chloride 104 mmol/L (96-108); Creatinine Clr Calc Pharmacy 91.4; Estimated Glomerular Filt Rate > 60; Glucose Random 116 mg/dL (60-115); Phosphorus 2.8 mg/dL (2.7-4.5); Potassium 4.6 mmol/L (3.3-5.1); Sodium 135 mmol/L (135-145); Total Protein 5.8 g/dL (6.5-8.0)
[2024-06-14 07:50] VITALS: BP 126/64; PULSE 72; RESP 16; TEMP 36.8; O2SAT 97
[2024-06-14] MEDS: amLODIPine Besylate 10 MG TABLET PO (08:00)
--- NOTE | 2024-06-14 11:48 | P.PNGS_ITS ---
Subjective Subjective Date of Service: 06/14/24 Interval history: Patient tolerating clear liquids without nausea and vomiting. Feels ready for advancing his diet. Denies abdominal pain. Physical Exam 2 Vital Signs: Vital Signs: Last Vital Signs Temp 98.3 F 06/14/24 07:50 Pulse 72 06/14/24 07:50 Resp 16 06/14/24 07:50 BP 126/64 06/14/24 07:50 Pulse Ox 97 06/14/24 07:50 O2 Del Method Room Air 06/14/24 07:50 O2 Flow Rate 2 06/03/24 10:42 BMI result Body Mass Index 24.9 Const: General: comfortable Nutritional Appearance: well nourished Resp: Effort & Inspection: normal respiratory effort GI: Inspection: Yes normal to inspection Palpation (GI): Soft to palpation, nontender, no guarding and not rigid Percussion: Yes normal to percussion Objective Data Active Medications Amlodipine Besylate (Amlodipine Besylate 10 Mg Tablet) 10 mg PO DAILY [facility]; Protocol Last Admin: 06/14/24 08:00 Dose: 10 mg Documented By: KAYLEIGH Calcium Carbonate (Calcium Carbonate 750 Mg Tab.Chew) 750 mg PO Q4H PRN PRN Reason: Heartburn Last Admin: 06/07/24 09:52 Dose: 750 mg Documented By: PATTY Heparin Sodium (Porcine) (Heparin Sodium,Porcine 5,000 Unit/Ml Vial) 5,000 unit SUBCUT Q8H [facility] Last Admin: 06/14/24 11:26 Dose: 5,000 unit Documented By: KAYLEIGH Hydromorphone HCl (Hydromorphone Hcl 0.5 Mg/0.5 Ml Syringe) 0.5 mg IVPUSH Q4H PRN; Protocol PRN Reason: Pain, Severe (Pain Scale 7-10) Last Admin: 06/12/24 15:56 Dose: 0.5 mg Documented By: SUKUMAR Acetaminophen (Ofirmev) 1,000 mg in 100 mls @ 400 mls/hr IV Q6H [facility] Last Infusion: 06/14/24 08:24 Dose: Infused Documented By: KAYLEIGH Nutrition (Parenteral) (Parenteral Nutrition) 1,560 mls @ 65 mls/hr IV .Q24H [facility]; Protocol Stop: 06/14/24 20:59 Last Infusion: 06/14/24 07:20 Dose: 65 mls/hr Documented By: KAYLEIGH Nutrition (Parenteral) (Parenteral Nutrition) 1,560 mls @ 65 mls/hr IV .Q24H [facility]; Protocol Stop: 06/15/24 20:59 Magnesium Hydroxide (Milk Of Magnesia 30 Ml Oral.Susp) 30 ml PO DAILY PRN PRN Reason: Constipation Melatonin (Melatonin 3 Mg Tablet) 6 mg PO BEDTIME PRN PRN Reason: Insomnia Ondansetron HCl (Ondansetron Hcl 4 Mg/2 Ml Vial) 4 mg IVPUSH Q6H PRN PRN Reason: Nausea and Vomiting Last Admin: 06/10/24 21:22 Dose: 4 mg Documented By: ROBBY Pharmacy Consult (Consult Rx Parenteral Nutrition Ordering) 1 each MISCELLANE DAILY PRN PRN Reason: Consult order Promethazine HCl (Promethazine Hcl 25 Mg/Ml Vial) 12.5 mg IM Q6H PRN PRN Reason: Nausea and Vomiting Last Admin: 06/11/24 01:20 Dose: 12.5 mg Documented By: ROBBY Sodium Chloride (0.9 % Sodium Chloride Flush 3 Ml Syringe) 3 ml IVFLUSH QSHIFT [facility] Last Admin: 06/14/24 08:05 Dose: Not Given Documented By: KAYLEIGH Non-Admin Reason: IV Running Sodium Chloride (0.9 % Sodium Chloride Flush 10 Ml Syringe) 5 ml IVFLUSH TID [facility] Last Admin: 06/14/24 08:01 Dose: Not Given Documented By: KAYLEIGH Non-Admin Reason: IV Running Labs 06/09/24 07:53 06/14/24 06:10 Labs: Laboratory Results - last 24 hr 06/14/24 06:10 Anion Gap 13 Estim Creat Clear Calc 91.4 Estimated GFR > 60 Random Glucose 116 H Calcium 8.4 D Phosphorus 2.8 Magnesium 2.0 Total Bilirubin 0.4 AST 31 ALT 33 Alkaline Phosphatase 52 Total Protein 5.8 L Albumin 2.5 L Procedures Date of Service Date of Service: 06/14/24 Progress Note: A&P Assessment and plan (1) Ileus, postoperative: Status: Acute (2) S/P colon resection: Status: Acute Plan Patient now has return of bowel function following colectomy. He is tolerating clear liquids after removal of the NG tube. Abdominal exam is soft and nondistended, with no tympany to percussion. We will advance to full liquid diet. Continue to monitor output. Encouraged ambulation Time Spent With Patient Time: Total time managing care of this patient today ____ minutes. Quality Stroke Does the patient have a stroke diagnosis?: No VTE Prior VTE?: No VTE Risk Level:: Medical - moderate - high VTE Device Contraindication: N/A - Device Ordered VTE Drug Contraindication: N/A - Med Ordered
[2024-06-14 15:17] VITALS: BP 134/75; PULSE 76; RESP 18; TEMP 36.9; O2SAT 97
[2024-06-14 19:40] VITALS: BP 138/73; PULSE 83; RESP 18; TEMP 36.7; O2SAT 97
[2024-06-14] MEDS: 0.9 % Sodium Chloride Flush 10 ML SYRINGE 5 ML IVFLUSH (21:45)
[2024-06-14] MEDS: Parenteral Nutrition 1,560 ML 65 ML IV (22:14)
[2024-06-14] MEDS: 0.9 % Sodium Chloride Flush 3 ML SYRINGE IVFLUSH (22:15)
[2024-06-15] MEDS: Heparin Sodium,Porcine 5,000 UNIT/ML VIAL 5000 UNIT SUBCUT ×3 (02:43→18:17)
[2024-06-15 03:27] VITALS: BP 136/68; PULSE 83; RESP 18; TEMP 36.2; O2SAT 95
[2024-06-15 07:40] VITALS: BP 138/79; PULSE 78; RESP 18; TEMP 36.6; O2SAT 99
[2024-06-15 08:25] LABS: Alanine Aminotransferase 53 U/L (0-40); Albumin Level 2.8 g/dL (3.5-5.0); Alkaline Phosphatase 65 U/L (39-117); Anion Gap 13 (12-20); Aspartate Amino Transferase 45 U/L (5-37); Bilirubin Total 0.4 mg/dL (0.0-1.0); Blood Urea Nitrogen 16 mg/dL (9-16); Calcium 8.8 mg/dL (8.4-10.2); Carbon Dioxide 26 mmol/L (22-29); Chloride 101 mmol/L (96-108); Creatinine Clr Calc Pharmacy 90.1; Estimated Glomerular Filt Rate > 60; Glucose Random 119 mg/dL (60-115); Magnesium 1.9 mg/dL (1.6-2.6); Phosphorus 3.6 mg/dL (2.7-4.5); Potassium 4.7 mmol/L (3.3-5.1); Sodium 135 mmol/L (135-145); Total Protein 6.3 g/dL (6.5-8.0)
[2024-06-15] MEDS: amLODIPine Besylate 10 MG TABLET PO (08:58)
[2024-06-15] MEDS: 0.9 % Sodium Chloride Flush 10 ML SYRINGE 5 ML IVFLUSH ×3 (09:00→22:36)
--- NOTE | 2024-06-15 10:19 | PM.PNGS ---
Subjective Subjective Date of Service: 06/15/24 Interval history: Patient feels much improved with no abdominal pain, nausea or vomiting. He is tolerating the full liquid diet. He is reported to have had a bowel movement yesterday Physical Exam Vital Signs: Vital Signs: Last Vital Signs Temp 97.9 F 06/15/24 07:40 Pulse 78 06/15/24 07:40 Resp 18 06/15/24 07:40 BP 138/79 06/15/24 07:40 Pulse Ox 99 06/15/24 07:40 O2 Del Method Room Air 06/15/24 07:40 O2 Flow Rate 2 06/03/24 10:42 BMI result Body Mass Index 24.9 Const: General: comfortable Nutritional Appearance: well nourished Resp: Effort & Inspection: normal respiratory effort GI: Inspection: Yes normal to inspection Palpation (GI): Soft to palpation, nontender, no guarding and not rigid Percussion: Yes normal to percussion Objective Data Active Medications Acetaminophen (Acetaminophen 325 Mg Tablet) 650 mg PO Q6H PRN PRN Reason: Pain, Mild (Pain Scale 1-3) Amlodipine Besylate (Amlodipine Besylate 10 Mg Tablet) 10 mg PO DAILY [facility]; Protocol Last Admin: 06/15/24 08:58 Dose: 10 mg Documented By: KAYLEIGH Calcium Carbonate (Calcium Carbonate 750 Mg Tab.Chew) 750 mg PO Q4H PRN PRN Reason: Heartburn Last Admin: 06/07/24 09:52 Dose: 750 mg Documented By: PATTY Heparin Sodium (Porcine) (Heparin Sodium,Porcine 5,000 Unit/Ml Vial) 5,000 unit SUBCUT Q8H [facility] Last Admin: 06/15/24 02:43 Dose: 5,000 unit Documented By: SALREYNA Hydromorphone HCl (Hydromorphone Hcl 0.5 Mg/0.5 Ml Syringe) 0.5 mg IVPUSH Q4H PRN; Protocol PRN Reason: Pain, Severe (Pain Scale 7-10) Last Admin: 06/12/24 15:56 Dose: 0.5 mg Documented By: SUKUMAR Nutrition (Parenteral) (Parenteral Nutrition) 1,560 mls @ 65 mls/hr IV .Q24H [facility]; Protocol Stop: 06/15/24 20:59 Last Admin: 06/14/24 22:14 Dose: 65 mls/hr Documented By: MARCIO Nutrition (Parenteral) (Parenteral Nutrition) 1,560 mls @ 65 mls/hr IV .Q24H [facility]; Protocol Stop: 06/16/24 20:59 Magnesium Hydroxide (Milk Of Magnesia 30 Ml Oral.Susp) 30 ml PO DAILY PRN PRN Reason: Constipation Melatonin (Melatonin 3 Mg Tablet) 6 mg PO BEDTIME PRN PRN Reason: Insomnia Ondansetron HCl (Ondansetron Hcl 4 Mg/2 Ml Vial) 4 mg IVPUSH Q6H PRN PRN Reason: Nausea and Vomiting Last Admin: 06/10/24 21:22 Dose: 4 mg Documented By: ROBBY Pharmacy Consult (Consult Rx Parenteral Nutrition Ordering) 1 each MISCELLANE DAILY PRN PRN Reason: Consult order Promethazine HCl (Promethazine Hcl 25 Mg/Ml Vial) 12.5 mg IM Q6H PRN PRN Reason: Nausea and Vomiting Last Admin: 06/11/24 01:20 Dose: 12.5 mg Documented By: ROBBY Sodium Chloride (0.9 % Sodium Chloride Flush 3 Ml Syringe) 3 ml IVFLUSH QSHIFT [facility] Last Admin: 06/15/24 08:51 Dose: Not Given Documented By: KAYLEIGH Non-Admin Reason: IV Running Sodium Chloride (0.9 % Sodium Chloride Flush 10 Ml Syringe) 5 ml IVFLUSH TID [facility] Last Admin: 06/15/24 09:00 Dose: 5 ml Documented By: KAYLEIGH Labs 06/09/24 07:53 06/15/24 07:48 Labs: Laboratory Results - last 24 hr 06/15/24 07:48 Hold Purple Top SEE NOTE Anion Gap 13 Estim Creat Clear Calc 90.1 Estimated GFR > 60 Random Glucose 119 H Calcium 8.8 Phosphorus 3.6 Magnesium 1.9 Total Bilirubin 0.4 AST 45 H ALT 53 H Alkaline Phosphatase 65 Total Protein 6.3 L Albumin 2.8 L Procedures Date of Service Date of Service: 06/15/24 Progress Note: A&P Assessment and plan (1) Ileus, postoperative: Status: Acute (2) S/P colon resection: Status: Acute Plan Patient now has return of bowel function following colectomy. He tolerated the full liquid diet and would like to try a regular diet. Abdominal exam is soft and nondistended, with no tympany to percussion. We will advance to regular soft diet Continue TPN for 1 more day Time Spent With Patient Time: Total time managing care of this patient today ____ minutes. Quality Stroke Does the patient have a stroke diagnosis?: No VTE Prior VTE?: No VTE Risk Level:: Medical - moderate - high VTE Device Contraindication: N/A - Device Ordered VTE Drug Contraindication: N/A - Med Ordered
[2024-06-15] MEDS: Throat Lozenge, Medicated LOZENGE 1 LOZENGE MUCOUS MEM ×2 (11:29→21:17)
[2024-06-15 15:31] VITALS: BP 127/77; PULSE 80; RESP 16; TEMP 36.9; O2SAT 97
[2024-06-15 19:39] VITALS: BP 144/71; PULSE 81; RESP 20; TEMP 37.3; O2SAT 97
[2024-06-15] MEDS: Parenteral Nutrition 1,560 ML 65 ML IV (22:35)
[2024-06-16] MEDS: Heparin Sodium,Porcine 5,000 UNIT/ML VIAL 5000 UNIT SUBCUT ×2 (02:33→10:38)
[2024-06-16] MEDS: 0.9 % Sodium Chloride Flush 3 ML SYRINGE IVFLUSH (02:36)
[2024-06-16 03:39] VITALS: BP 140/75; PULSE 78; RESP 18; TEMP 36.8; O2SAT 98
--- NOTE | 2024-06-16 06:50 | P.PNGS_ITS ---
Subjective Subjective Date of Service: 06/16/24 <Parvez Ly - Last Filed: 06/16/24 07:44> 06/16/24 <Markos Dubon MD - Last Filed: 06/16/24 10:12> Interval history: No acute overnight events. Now on a soft diet, tolerating w/o nausea or vomiting. Reports multiple BMs and flatus. OOB w/o assistance. Reports consitent use of IS. Brother on phone reports he thinks Daniel is coming down with a cold b/c he sounds congested. Parvez Ly M3 <Parvez Ly - Last Filed: 06/16/24 07:44> Physical Exam 2 Vital Signs: Vital Signs: Last Vital Signs Temp 98.3 F 06/16/24 03:39 Pulse 78 06/16/24 03:39 Resp 18 06/16/24 03:39 BP 140/75 H 06/16/24 03:39 Pulse Ox 98 06/16/24 03:39 O2 Del Method Room Air 06/16/24 03:39 O2 Flow Rate 2 06/03/24 10:42 BMI result Body Mass Index 24.9 <Parvez Ly - Last Filed: 06/16/24 07:44> Const: General: cooperative, healthy appearing, comfortable and no acute distress <Parvez Ly Last Filed: 06/16/24 07:44> Orientation/consciousness: patient oriented x3 <Parvez Ly Last Filed: 06/16/24 07:44> GI: Inspection: Yes normal to inspection, Yes abdominal wall ecchymosis and No distended <Parvez Ly Last Filed: 06/16/24 07:44> Palpation (GI): Tenderness to palpation present (GI) (RUQ pain), no guarding, not rigid and No Rebound tenderness present <Parvez Ly - Last Filed: 06/16/24 07:44> Neuro: General: patient oriented x3 <Parvez Ly Last Filed: 06/16/24 07:44> Objective Data Active Medications Acetaminophen (Acetaminophen 325 Mg Tablet) 650 mg PO Q6H PRN PRN Reason: Pain, Mild (Pain Scale 1-3) Amlodipine Besylate (Amlodipine Besylate 10 Mg Tablet) 10 mg PO DAILY [facility]; Protocol Last Admin: 06/15/24 08:58 Dose: 10 mg Documented By: KAYLEIGH Benzocaine (Throat Lozenge, Medicated Lozenge) 1 lozenge MUCOUS MEM Q2H PRN PRN Reason: Sore Throat Last Admin: 06/15/24 21:17 Dose: 1 lozenge Documented By: MARCIO Calcium Carbonate (Calcium Carbonate 750 Mg Tab.Chew) 750 mg PO Q4H PRN PRN Reason: Heartburn Last Admin: 06/07/24 09:52 Dose: 750 mg Documented By: PATTY Heparin Sodium (Porcine) (Heparin Sodium,Porcine 5,000 Unit/Ml Vial) 5,000 unit SUBCUT Q8H [facility] Last Admin: 06/16/24 02:33 Dose: 5,000 unit Documented By: MARCIO Hydromorphone HCl (Hydromorphone Hcl 0.5 Mg/0.5 Ml Syringe) 0.5 mg IVPUSH Q4H PRN; Protocol PRN Reason: Pain, Severe (Pain Scale 7-10) Last Admin: 06/12/24 15:56 Dose: 0.5 mg Documented By: SUKUMAR Nutrition (Parenteral) (Parenteral Nutrition) 1,560 mls @ 65 mls/hr IV .Q24H [facility]; Protocol Stop: 06/16/24 20:59 Last Admin: 06/15/24 22:35 Dose: 65 mls/hr Documented By: MARCIO Magnesium Hydroxide (Milk Of Magnesia 30 Ml Oral.Susp) 30 ml PO DAILY PRN PRN Reason: Constipation Melatonin (Melatonin 3 Mg Tablet) 6 mg PO BEDTIME PRN PRN Reason: Insomnia Ondansetron HCl (Ondansetron Hcl 4 Mg/2 Ml Vial) 4 mg IVPUSH Q6H PRN PRN Reason: Nausea and Vomiting Last Admin: 06/10/24 21:22 Dose: 4 mg Documented By: ROBBY Pharmacy Consult (Consult Rx Parenteral Nutrition Ordering) 1 each MISCELLANE DAILY PRN PRN Reason: Consult order Promethazine HCl (Promethazine Hcl 25 Mg/Ml Vial) 12.5 mg IM Q6H PRN PRN Reason: Nausea and Vomiting Last Admin: 06/11/24 01:20 Dose: 12.5 mg Documented By: ROBBY Sodium Chloride (0.9 % Sodium Chloride Flush 3 Ml Syringe) 3 ml IVFLUSH QSHIFT [facility] Last Admin: 06/16/24 02:36 Dose: 3 ml Documented By: MARCIO Sodium Chloride (0.9 % Sodium Chloride Flush 10 Ml Syringe) 5 ml IVFLUSH TID [facility] Last Admin: 06/15/24 22:36 Dose: 5 ml Documented By: MARCIO <Parvez Ly - Last Filed: 06/16/24 07:44> Labs CBC & Chem 7: 06/09/24 07:53 06/16/24 06:05 <Parvez Ly - Last Filed: 06/16/24 07:44> Labs: Laboratory Results - last hr 06/15/24 07:48 Hold Purple Top SEE NOTE Anion Gap 13 Estim Creat Clear Calc 90.1 Estimated GFR > 60 Random Glucose 119 H Calcium 8.8 Phosphorus 3.6 Magnesium 1.9 Total Bilirubin 0.4 AST 45 H ALT 53 H Alkaline Phosphatase 65 Total Protein 6.3 L Albumin 2.8 L <Parvez Ly - Last Filed: 06/16/24 07:44> Procedures Date of Service Date of Service: 06/16/24 <Parvez Ly - Last Filed: 06/16/24 07:44> 06/16/24 <Markos Dubon MD - Last Filed: 06/16/24 10:12> Progress Note: A&P Assessment and plan (1) Ileus, postoperative: Status: Acute <Parvez Ly - Last Filed: 06/16/24 07:44> Assessment and Plan: looks well tolerating diet has BMs abd soft latesha ny'ed possible home today seen and examined independently dw brothpaul Anna <Markos Dubon MD - Last Filed: 06/16/24 10:12> Assessment and Plan: Daniel looks good today. TPN to d/c today. Abdomen benign. Pain well- controlled. Continue to encourage IS and OOB/ambulation. Consider for discharge. Parvez Ly M3 <Parvez Ly - Last Filed: 06/16/24 07:44> Time Spent With Patient Time: Total time managing care of this patient today ____ minutes. <Parvez Ly - Last Filed: 06/16/24 07:44> Quality Stroke Does the patient have a stroke diagnosis?: No <Parvez Waters Filed: 06/16/24 07:44> VTE Prior VTE?: No <Parvez Waters Filed: 06/16/24 07:44> VTE Risk Level:: Medical - moderate - high <Parvez Waters Filed: 06/16/24 07:44> VTE Device Contraindication: N/A - Device Ordered <Parvez Waters Filed: 06/16/24 07:44> VTE Drug Contraindication: N/A - Med Ordered <Parvez Waters Filed: 06/16/24 07:44>
[2024-06-16 07:23] VITALS: BP 137/70; PULSE 80; RESP 16; TEMP 36.8; O2SAT 96
[2024-06-16 07:39] LABS: Alanine Aminotransferase 82 U/L (0-40); Albumin Level 3.4 g/dL (3.5-5.0); Alkaline Phosphatase 89 U/L (39-117); Anion Gap 15 (12-20); Aspartate Amino Transferase 57 U/L (5-37); Bilirubin Total 0.5 mg/dL (0.0-1.0); Blood Urea Nitrogen 19 mg/dL (9-16); Calcium 9.2 mg/dL (8.4-10.2); Carbon Dioxide 25 mmol/L (22-29); Chloride 98 mmol/L (96-108); Estimated Glomerular Filt Rate > 60; Glucose Random 104 mg/dL (60-115); Phosphorus 3.8 mg/dL (2.7-4.5); Potassium 4.7 mmol/L (3.3-5.1); Sodium 133 mmol/L (135-145); Total Protein 7.6 g/dL (6.5-8.0)
[2024-06-16] MEDS: amLODIPine Besylate 10 MG TABLET PO (08:09)
[2024-06-16] MEDS: 0.9 % Sodium Chloride Flush 10 ML SYRINGE 5 ML IVFLUSH (08:10)
--- NOTE | 2024-06-16 11:01 | MHC.CLN ---
F/U DIET ADVANCED TO REGULAR, LOW FIBER. PER MD, PATIENT TOLERATING DIET AND DISCONTINUE TPN TODAY. FOLLOW FOR INTAKE AND DIET TOLERANCE.
--- NOTE | 2024-06-16 14:12 | PC.NURSE ---
PICC line removed by MD Dubon at the bedside, pt tolerated well, TPN stopped per MD, Pt ready for DC.
--- NOTE | 2024-06-16 14:22 | PM.EVENT ---
Event Note Date of Service: 06/16/24 Event Note: He continues to do well Tolerating diet well No vomiting Ambulating well Abdomen remained soft and benign Has bowel movements and flatus Discussed with his brother Wilfrido Elen [place] home today I will see him in the office for follow-up Instructions reviewed Time Spent With Patient Time: Total time managing care of this patient today ____ minutes.
--- NOTE | 2024-06-16 14:38 | MHC.CM.PN ---
pt dcd home self care
[2024-06-16 15:09] VITALS: BP 125/68; PULSE 88; RESP 20; TEMP 37.1; O2SAT 98
--- NOTE | 2024-06-16 16:43 | PM.DS ---
DS: Providers Provider Date of Service: 06/16/24 Date of admission: 06/03/24 09:55 Date of discharge: 06/16/24 Primary care physician: Nasima Costa MD Attending physician on admission: Markos Dubon Attending physician on discharge: Markos Dubon DS: Diagnosis Discharge Diagnosis (1) Ileus, postoperative: Status: Resolved DS: Summary Hospital Course Hospital Course: HPI AT ADMISSION: The patient is a 58-year-old male who had recently undergone screening colonoscopy with note of a large polyp in the right colon that was deemed to be unresectable. 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 I had recommended proceeding with a right colon resection in view of this large polyp. His brother she has healthcare proxy had given consent and he now presents for the planned procedure. HOSPITAL COURSE: On 06/03/24, a hand assisted laparoscopic right colon resection, extensive lysis of adhesions was performed by Dr. Dubon without immediate complications. The patient tolerated the procedure well and was admitted following for recovery and observation. The patient had a slow recovery course and developed a post operative ileus. He was initially doing quite well and was having liquid BMs, mild incisional pain. His reddy was removed on POD #1. His activity was increased. His diet was attempted to be advanced a few times however he would occasionally develop nausea associated with mild abdominal distention which did not improve. CT scan was therefore obtained due to the vomiting and distention which showed small bowel dilatation. He was started on PPN for nutrition. His abdominal distention however worsened and required NGT insertion for decompression. PICC line was placed and TPN initiated. His ileus improved and NGT output significantly decreased and was eventually removed. He began to pass more flatus and have solid BMs. His diet was slowly advanced as tolerated from clear liquids to solids. On the day of discharge, he was tolerating a solid diet without nausea or vomiting, had good pain control on PO analgesics and had good GI function. He was ambulating without difficulty. He was hemodynamically stable with a benign abdomen with clean incisions and soft, non distended. He felt ready for discharge. He was discharged to home on 06/16/24 in stable condition. He is to follow up in the office with Dr. Dubon. He is to f/u with oncology upon discharge. Status at Discharge Functional status at discharge: independent ambulation Overall status at discharge: patient is progressing back to baseline Time Attestation Discharge Coordination Time (in mins): 50 Quality: Safe Use of Opioids Does Pt have an Active Cancer Diagnosis on the Problem List?: Yes Opioid Measure Date for [facility] Report: 05/31/24 Opioid Measure Time for [facility] Report: 09:48 Quality: Stroke Does the patient have a stroke diagnosis?: No Physical Exam Vital Signs: Vital Signs: Last Vital Signs Temp 98.7 F 06/16/24 15:09 Pulse 88 06/16/24 15:09 Resp 20 06/16/24 15:09 BP 125/68 06/16/24 15:09 Pulse Ox 98 06/16/24 15:09 O2 Del Method Room Air 06/16/24 15:09 O2 Flow Rate 2 06/03/24 10:42 BMI result Body Mass Index 24.9 DS: Data Data Completed and Pending Completed studies during hospitalization [Text1]: Pending at discharge 06/03/24 09:05 Surgical [PTH] Stat Colon, right, segmental resection: - Adenocarcinoma, moderately differentiated with mucinous features, invasive into subserosa; negative margins. - Metastatic carcinoma present in one of 23 lymph nodes examined. - Tubular adenomata, hyperplastic and inflammatory polyps. - pT3 N1a (AJCC Stage 8th ed.) Procedures Insertion of Infusion Device into Superior Vena Cava, Percutaneous Approach (06/03/24) Introduction of Anesthetic Agent into Peripheral Nerves and Plexi, Percutaneous Approach (06/03/24) Release Peritoneum, Open Approach (06/03/24) Resection of Right Large Intestine, Open Approach (06/03/24) Ultrasonography of Superior Vena Cava, Guidance (06/03/24) Discharge Plan Discharge Anticipated Discharge Date/Time: 06/16/24 10:00 Patient Disposition: Home, Self-Care Discharge Diagnosis: Right colon cancer, status post right colon resection Referrals: Markos Dubon MD [Physician] - 2 Weeks Christopher Bradshaw MD [Physician] - 1 Week (newly diagnosed colon cancer) Nasima Jiménez MD [Primary Care Provider] - 1 Week Discharge Medications: Continued amlodipine 5 mg tablet 5 mg PO DAILY 90 Days Qty: 90 2RF Discharge Orders: Discharge Order (Routine); Ordered 06/16/24 Ordered By: Markos Dubon Diet: Advance to usual diet Activity on Discharge: No heavy lifting Stand Alone Forms: Patient Portal Discharge page Print Language: [place] Activity Restrictions/Additional Instructions: If the incision area is tender, you may apply an ice pack for short intervals (No more than 20 minutes on, followed by at least 20 minutes off). Do not apply heat. Do not use creams, lotions, or topical antibiotics unless instructed to do so by your surgeon. These can cause infection or allergic reaction. No lifting more than 20 lbs OK to shower No strenuous activities Call the office for follow-up in 2 weeks - with Dr. Dubon Call Your Doctor If: -Your temperature exceeds 101.5? F -You experience excessive pain or swelling -You have an unexpected reaction to medication -You have excessive bleeding -You experience continued vomiting/nausea -Your incision begins to separate -Your incision shows signs of infection such as increased redness, swelling, excessive pain, drainage (light blood or clear fluid is normal) or heat Care Plan Goals: return to baseline treat colon cancer Health Concerns: colon cancer Plan of Treatment: ffup with [facility] Onc ffup in office Assessment: doing very well Discharge Date/Time: 06/16/24 17:03
== END 2024-06-16 17:03 | disposition home or self-care (01) | DRG 330 ==
LOC: HO.SSSA 09:55 → HO.S3 10:26
PROVIDERS: Nurse Practitioner; Physician Assistant Surgical; Admitting Provider Surgery; PCP Internal Medicine; Visit Provider Surgery
PROC: 0DTE0ZZ Resection of Large Intestine, Open Approach (ICD-10-PCS; principal; 2024-06-03 07:30)
DX: C18.2 Malignant neoplasm of ascending colon (principal); C77.2 Secondary and unspecified malignant neoplasm of intra-abdominal lymph nodes; K56.7 Ileus, unspecified; K66.0 Peritoneal adhesions (postprocedural) (postinfection); I10 Essential (primary) hypertension; G89.18 Other acute postprocedural pain; Z79.899 Other long term (current) drug therapy
CPT/HCPCS: 36415; 36573; 71045; 74177; 80048; 80053; 83735; 84100; 84478; 85007; 85025; 85027; 86850; 86900; 86901; 88309; 88329; 88341; 88342; 93005; C1751; C1758; J0131; J1100; J1170; J1644; J2250; J2371; J2405; J2550; J2704; J2795; J3010; J7120; Q9967

== ENCOUNTER → 2024-06-03 09:55 | Outpatient (BNV) | payer MEDICARE, MEDICAID, SELFPAY | PROVIDERS: Admitting Provider Surgery; PCP Internal Medicine; Visit Provider Surgery | DX: K91.89 Other postprocedural complications and disorders of digestive system (principal); K56.7 Ileus, unspecified | CPT/HCPCS: 44204; 99024; 99499 ==

== ENCOUNTER 2024-06-20 10:49 | Outpatient (AMB) | payer MEDICARE, MEDICAID, SELFPAY ==
--- NOTE | 2024-06-20 10:52 | MHC.PC.OV ---
Vital Signs 06/20/24 10:55 Height 5 ft 3 in Weight 124 lb 0.8 oz BMI 22.0 BP 138/68 Blood Pressure Location Lt brachial Position Sitting Pulse 78 Pulse Source Pulse Oximeter Pulse Oximetry (%) 98 Oxygen Delivery Method Room Air Intake Visit Reasons: colon cancer Intake Note: Patient is here for hospital discharge follow up. Patient was discharged [place] [facility] [place] Allergies No Known Allergies [No Known Allergies*] Allergy (Unknown, Verified 06/20/24 11:00) NKA Tobacco use date assessed: 03/27/24 Dental Screening Dental Screen Date: 03/27/24 HPI TCM TCM Information Date of Discharge 06/16/24 Discharged From [facility] HPI Comments History of Present Illness Details 58 y/o male patient who presents to the clinic for HDF. He was admitted at [facility] on 06/03/24 for Right colon cancer. He underwent Lap Rt Ileocolectomy on 06/03/24 for Colon CA. He was discharged home on 06/16/24. He has scheduled f/u appointment with Surgery. He had his [place] removed while in the hospital. He is accompanied today by Son - Pt in [place]. No further concerns today. [facility] Medical History (Updated 06/08/24 @ 14:24 by Zackery Samayoa MD) Wears hearing aid in right ear Physical exam Thrombocytopenia Vertigo HTN (hypertension) Testicle cancer Hearing loss Developmental delay, mild Autoimmune thyroiditis Bicytopenia [place] Family history of hypertension Surgical History (Updated 06/20/24 @ 09:29 by NHUNG Reynolds) Hx of surgical procedure (~06/03/24) Hx of colonoscopy (04/14/24) H/O arthroscopic knee surgery History of orchiectomy History of neck surgery History of cholecystectomy History of tonsillectomy Family History Father Lung cancer Hypertension Mother Emphysema lung Hypertension Paternal Grandfather Cancer Brother Slow to wake up after anesthesia PONV (postoperative nausea and vomiting) Social History Household Members: Family Housing: House Are you a primary dog daycare provider to a significant other at home: No Do you presently have visiting nurse or other home services: No Alcohol intake: never Patient Tobacco Use Status: Never used Tobacco e-Cigarette/Vaping Use: Never Used Second Hand Smoke Exposure: No service: No Current occupational status: employed Current occupation: [employer] Current occupational exposures/hazards: No Cognitive needs: No Hearing needs: Yes Vision needs: No Questionnaire Thrive Questionnaire Date Thrive assessed: 06/04/24 AUDIT C Alcohol Use Questionnaire (AUDIT-C) 1. How often do you have a drink containing alcohol?: Never 3. How often do you have six or more drinks on one occasion?: Never Total Score: 0 PHUC-7 AMB Questionnaire PHUC-7 Date PHUC - 7 assessed: 03/27/24 Source: Developed by Drs. Suresh Zhao, Maddy Wolf, Emmanuel Ortega and colleagues, with an educational makenzie from State. Review of Systems Const All systems reviewed & are unremarkable except as noted in HPI and below Physical exam (Primary Care) Vital Signs: Last Vital Signs Pulse 78 06/20/24 10:55 BP 138/68 06/20/24 10:55 Pulse Ox 98 06/20/24 10:55 Oxygen Delivery Method Room Air 06/20/24 10:55 BMI result Body Mass Index 22.0 Tobacco/Smoking Status: Tobacco use Status Tobacco use date assessed 03/27/24 06/20/24 10:52 Patient Tobacco Use Status Never used Tobacco 06/20/24 10:52 e-Cigarette/Vaping Use Never Used 06/20/24 10:52 Thrive Assessment: Date of Thrive Assessment Date Thrive assessed 06/04/24 06/20/24 10:52 Const General: cooperative and no acute distress Nutritional Appearance: thin Orientation/consciousness: patient oriented x3 Resp Effort & Inspection: normal respiratory effort and able to speak in complete sentences Auscultation: clear to auscultation bilaterally, no crackles, no rales, no rhonchi and no wheezes Cardio Heart sounds: S1 normal heart sound present and S2 normal heart sound present GI Palpation (GI): Soft to palpation, not firm, Tenderness to palpation present (GI) (mild tenderness. Wound dry and healing well. [place] removed) periumbilically and No hepatosplenomegaly present Auscultation: normal bowel sounds Skin Wounds: wounds noted (Trocar sites healing well and Umbilical incision dry and clean) Neuro General: patient oriented x3, gait normal and moves all extremities Psych Affect: normal affect Vital Signs: Last Vital Signs Pulse 78 06/20/24 10:55 BP 138/68 06/20/24 10:55 Pulse Ox 98 06/20/24 10:55 Oxygen Delivery Method Room Air 06/20/24 10:55 BMI result Body Mass Index 22.0 Const General: cooperative and no acute distress Nutritional Appearance: thin Orientation/consciousness: patient oriented x3 Resp Effort & Inspection: normal respiratory effort and able to speak in complete sentences Auscultation: clear to auscultation bilaterally, no crackles, no rales, no rhonchi and no wheezes Cardio Heart sounds: S1 normal heart sound present and S2 normal heart sound present GI Palpation (GI): Soft to palpation, not firm, Tenderness to palpation present (GI) (mild tenderness. Wound dry and healing well. [place] removed) periumbilically and No hepatosplenomegaly present Auscultation: normal bowel sounds Skin Wounds: wounds noted (Trocar sites healing well and Umbilical incision dry and clean) Neuro General: patient oriented x3, gait normal and moves all extremities Psych Affect: normal affect Assessment and Plan Assessment & Plan (1) S/P colon resection: Code(s): Z90.49 - Acquired absence of other specified parts of digestive tract Plan: F/u with Surgical Team as scheduled Pt doing good and recovering at home. F/u with Oncology as scheduled. (2) Ileus, postoperative: Code(s): K91.89 - Other postprocedural complications and disorders of digestive system; K56.7 - Ileus, unspecified Plan: F/u with Surgical Team as scheduled Pt doing good and recovering at home. F/u with Oncology as scheduled. Coding Level of Care Code Est Pt Level 4 (04421) Diagnoses S/P colon resection Z90.49 Ileus, postoperative K91.89; K56.7 Time Spent (min) 20 Comment Spent reviewing hospital discharge notes.
[2024-06-20 10:55] VITALS: BP 138/68; PULSE 78; O2SAT 98; BMI 22.0
== END 2024-06-20 12:42 | disposition home or self-care (01) ==
PROVIDERS: PCP Internal Medicine; Visit Provider Nurse Practitioner Family
DX: Z90.49 Acquired absence of other specified parts of digestive tract (principal); K91.89 Other postprocedural complications and disorders of digestive system; K56.7 Ileus, unspecified
CPT/HCPCS: 99214

== ENCOUNTER 2024-06-23 09:51 | Outpatient (AMB) | payer MEDICARE, MEDICAID, SELFPAY ==
[2024-06-23 10:08] VITALS: BMI 22.0
--- NOTE | 2024-06-23 10:08 | A.OFFVIS_ITS ---
Vital Signs 06/23/24 10:08 Height 5 ft 3 in Weight 124 lb 0.795 oz BMI 22.0 Intake Visit Reasons: staple removal, s/p right colon resection Intake Note: This patient presents for a follow-up assessment status psot right colon resection. Patient c/o; reports no complaints. Clinical Biostatistics Director Required: No Accompanied by: Other Relationship Allergies No Known Allergies [No Known Allergies*] Allergy (Unknown, Verified 06/23/24 10:09) NKA HPI HPI staple removal, s/p right colon resection: Details: He had undergone right colon resection for a right colon mass last 06/03/2024. He tolerated procedure well. However, he had postop ileus and had a prolonged stay in the hospital. He was discharged on postop day 14. He has been doing well at home. He feels well overall. He has good oral intake. He has good bowel movements. He denies any pain. [facility] Medical History Colon cancer Wears hearing aid in right ear Physical exam Thrombocytopenia Vertigo HTN (hypertension) Testicle cancer Hearing loss Developmental delay, mild Autoimmune thyroiditis Bicytopenia [place] Family history of hypertension Surgical History Hx of surgical procedure (~06/03/24) Hx of colonoscopy (04/14/24) H/O arthroscopic knee surgery History of orchiectomy History of neck surgery History of cholecystectomy History of tonsillectomy Family History Father Lung cancer Hypertension Mother Emphysema lung Hypertension Paternal Grandfather Cancer Brother Slow to wake up after anesthesia PONV (postoperative nausea and vomiting) Social History Household Members: Family Housing: House Are you a primary hourly caregiver to a significant other at home: No Do you presently have visiting nurse or other home services: No Alcohol intake: never Patient Tobacco Use Status: Never used Tobacco e-Cigarette/Vaping Use: Never Used Second Hand Smoke Exposure: No service: No Current occupational status: employed Current occupation: [employer] Current occupational exposures/hazards: No Cognitive needs: No Hearing needs: Yes Vision needs: No Review of Systems Const Denies chills and Denies fever(s) Card Denies chest pain at rest Resp Denies cough GI Denies constipation Physical Exam Vital Signs: BMI result Body Mass Index 22.0 Const General: comfortable and no acute distress Resp Effort & Inspection: normal respiratory effort GI Other: Incisions are well healed, not infected Palpation (GI): Soft to palpation, not firm, nontender and no guarding Assessment & Plan Assessment & Plan (1) Colon cancer: Code(s): C18.9 - Malignant neoplasm of colon, unspecified Category: Medical Plan: Status post right colon resection, hand assisted laparoscopic. He is doing very well postoperatively now. Has good GI functions His path report shows a T3 N1 adenocarcinoma. He is a patient of Dr. Bradshaw for testicular cancer in the past so I will refer him back to her. His brother was with him during the visit and understands the plan well. He can otherwise follow up with me on a p.r.n. basis. He was advised to not do any lifting more than 20 lb for at least another week. Orders: Referrals Hematology & Oncology Referral C18.9 - Malignant neoplasm of colon, unspecified Coding Level of Care Code Global (19093) Diagnoses Colon cancer C18.9
== END 2024-06-23 10:16 | disposition home or self-care (01) ==
PROVIDERS: PCP Internal Medicine; Visit Provider Surgery
DX: C18.9 Malignant neoplasm of colon, unspecified (principal)
CPT/HCPCS: 99024

== ENCOUNTER 2024-06-23 14:07 | Outpatient (REF) | payer MEDICARE, MEDICAID, SELFPAY ==
--- NOTE | ~2024-06-23 | MR_ITS ---
EXAMINATION: MR ABDOMEN WITHOUT AND WITH CONTRAST CLINICAL INFORMATION: Small mass in the right kidney seen on 04/19/2024 COMPARISON: April 19 and 05/10/2024 TECHNIQUE: MR abdomen was performed without and with use of 5.5 mL intravenous Gadavist.. Postcontrast images are performed in multiphase dynamic sequences. Imaging was performed in 3 planes. FINDINGS: LUNG BASES: The visualized lung bases are unremarkable. LIVER, GALLBLADDER, AND BILIARY TREE: The liver is normal in size, smooth in contour, and normal in signal. No focal hepatic lesion or biliary ductal dilatation is present. Gallbladder is surgically absent PANCREAS: Unremarkable. SPLEEN: Normal. ADRENAL GLANDS: Normal. KIDNEYS AND URETERS: Lower pole exophytic small mass hypointense on T2 and revealed prominent heterogeneous enhancement following gadolinium administration with delayed washout and measured 1.6 x 1.3 cm. There are bilateral small parapelvic cysts. GASTROINTESTINAL TRACT: Patient is status post hemicolectomy on the right no obvious mass is identified. There are changes of colonic diverticulosis in the sigmoid colon. ABDOMINAL WALL: No significant hernia is appreciated. LYMPH NODES: No lymphadenopathy. VASCULAR: Unremarkable. OSSEOUS STRUCTURES: There are multilevel degenerative changes in lumbar spine MR/MR abdomen wo/w con IMPRESSION: 1. 1.6 x 1.3 cm heterogeneous enhancing mass in the lower pole of the right kidney suspicious for renal cell carcinoma. 2. Status post right hemicolectomy. No obvious mass is identified. 3. Bilateral parapelvic cysts. 4. Status post cholecystectomy. 5. Diverticulosis of the sigmoid colon.
[2024-06-23] MEDS: gadobutroL 7.5 ML VIAL IVPUSH (15:14)
== END 2024-06-23 14:08 | disposition home or self-care (01) ==
LOC: HO.MRI 14:07
PROVIDERS: PCP Internal Medicine; Visit Provider Internal Medicine Gastroenterology
DX: N28.9 Disorder of kidney and ureter, unspecified (principal)
CPT/HCPCS: 74183; 99212; A9585

== ENCOUNTER 2024-07-08 07:55 | Outpatient (REF) | payer MEDICARE, MEDICAID, SELFPAY ==
--- NOTE | ~2024-07-08 | PE_ITS ---
EXAMINATION: FLUORINE-18 FDG PET/CT SCAN CLINICAL INFORMATION: Initial treatment management. Stage III colon cancer with lymph node involvement. TECHNIQUE: 56 minutes following the intravenous administration of 17.4 mCi of fluorine 18 FDG, images from the base of skull to mid-thigh were obtained using a combined PET/CT scanner with CT scan based attenuation correction. No intravenous contrast was administered. Transverse, coronal, sagittal, and volume reconstruction projections were obtained. The patient's blood glucose as determined by a finger stick, was 91 mg/dL immediately prior to injection. The radiotracer was injected intravenously through right antecubital superficial vein, without any complications. Total CT exam dose-length product 469.63 mGy-cm. * These CT images were obtained using dose optimization techniques as appropriate, variously including the following: Automated exposure control * Adjustment of mA and/or kV according to patient size (this includes techniques or standardized protocols for targeted exams where dose is matched to indication/reason for exam; i.e. extremities or head) * Use of iterative reconstruction technique COMPARISON: MRI of the abdomen done on 06/23/[address] of the abdomen and pelvis done on 06/09/2024 and 05/19/2024. F-[address] scan done on 01/04/2017. FINDINGS: SUV MAX REFERENCE: Blood: 2.3. Liver: 2.2. HEAD AND NECK: Heterogenous increased tracer activity is present within both lobes of the thyroid gland (left greater than right), similar to prior study with SUV max of 2.5 on the right and 3.2 on the left (53/267). Mild tracer activity within the proximal cervical esophagus with SUV max of 3.2 (53/267). No large intracranial hemorrhage, acute territorial infarct or significant shift of midline structures. CHEST: Ports and Devices: None Lungs: No abnormal radiotracer uptake. Pleura: Small volume bilateral mild hypermetabolic nonspecific pleural effusions with SUV max of 1.3 on the right and 1.4 on the left (95/267). Lymph Nodes: No tracer-avid mediastinal, hilar or internal mammary or axillary lymphadenopathy. Esophagus: Mild increase in avidity of the thoracic esophagus as well. Mediastinum: There is no significant pericardial effusion/thickening. Breasts/Chest Wall: No abnormal radiotracer uptake. ABDOMEN/PELVIS: Liver/Biliary System: No discrete focal tracer avid disease is present. However, at the deep of the right lobe of the liver, inseparable from the capsule of the liver, nonspecific focal area of hypermetabolism is noted which is also inseparable from the adjacent part of the large bowel and subtle areas of fatty stranding with SUV max of 3.8 (136/267). A follow-up diagnostic CT scan of the abdomen and pelvis following administration of oral and intravenous contrast is recommended for further anatomical correlation and if appropriate image guided biopsy. The gallbladder is surgically absent. Pancreas: No evidence of pancreatic ductal dilatation. A few calcifications are present, may represent parenchymal versus vascular calcification seen mostly within the body of the pancreas. Spleen: No abnormal radiotracer uptake. No evidence of splenomegaly. Adrenal Glands: No abnormal radiotracer uptake. Kidneys: No hydronephrosis, hydroureter or renal calculi bilaterally. Bowel: Colonic diverticulosis. No evidence of bowel obstruction. Postsurgical changes are noted within the mid abdomen to the left of the midline, not well-visualized due to motion related artifacts. Lymph Nodes: There is a 1.1 cm mild hypermetabolic mid mesenteric lymph node is present with SUV max of 3.1 (140/267). No evidence of any tracer avid retroperitoneal and intrapelvic or groin lymphadenopathy. Pelvic Organs: The urinary bladder is underdistended. Mildly enlarged prostate without intravenous avidity. MUSCULOSKELETAL: Multilevel moderate degenerative spondylosis. No evidence of any suspicious hypermetabolic osseous disease to suspect metastasis. VASCULAR: Calcific atherosclerotic disease of the aorta and its branches including coronary and carotid arterial calcifications. No evidence of aneurysm. THE SITE(S) OF MOST INTENSE FDG AVIDITY AND SUV MAX: Indeterminate focal tracer activity seen inseparable from the outer capsular surface of the tip of the right lobe of the liver (segment 6) with SUV max of 3.8. PET/PET CT fusion skull to thigh IMPRESSION: * Abnormal study. A 1.1 cm mild hypermetabolic mid mesenteric lymph node is present with SUV max of 3.1. No evidence of any additional hypermetabolic lymphadenopathy within the abdomen and pelvis or groin. * Indeterminate focal tracer activity is present inseparable from the outer capsular surface of the tip of the right lobe of the liver (segment 6) with SUV max of 3.8. A follow-up diagnostic CT scan of the abdomen and pelvis following administration of oral and intravenous contrast is recommended for further anatomical correlation and if appropriate image guided biopsy. * Small volume bilateral mild hypermetabolic nonspecific pleural effusions with SUV max of 1.3 on the right and 1.4 on the left. * Heterogenous increased tracer activity is present within both lobes of the thyroid gland (left greater than right), similar to prior study with SUV max of 2.5 on the right and 3.2 on the left. * Mild tracer activity within the proximal cervical esophagus and thoracic esophagus, likely represent esophagitis. Clinical correlation and if upper. Direct visualization may be considered for further clarification. * Calcific atherosclerotic disease of the aorta and its branches including coronary and carotid arterial calcifications. No evidence of aneurysm. Electronically signed by: Ashley Boyle MD 07/16/2024 08:37 AM EDT
== END 2024-07-08 07:56 | disposition home or self-care (01) ==
LOC: HO.PET 07:55
PROVIDERS: PCP Internal Medicine; Visit Provider Internal Medicine Medical Oncology
DX: Z13.89 Encounter for screening for other disorder (principal)

== ENCOUNTER 2024-07-10 14:15 | Outpatient (REF) | payer MEDICARE, MEDICAID, SELFPAY ==
--- NOTE | ~2024-07-10 | MR_ITS ---
EXAMINATION: MR BRAIN WITHOUT AND WITH CONTRAST CLINICAL INFORMATION: Memory loss. Renal mass. Colon cancer. COMPARISON: Brain MRI dated 12/26/2020. TECHNIQUE: Multiplanar, multisequence imaging of the brain was performed before and after the intravenous administration of 5.5 mL of Gadavist. FINDINGS: No diffusion abnormalities are identified to suggest an acute infarct. No mass effect or midline shift is seen. Moderate chronic white matter microangiopathic changes have slightly progressed with scattered chronic cortically-based infarcts in the right frontal lobe and left frontoparietal lobes near the vertex. Degree of moderate generalized brain parenchymal volume loss is also slightly worsened. Prominent left-sided retrocerebellar extra axial fluid again visible, potentially representing an underlying arachnoid cyst which is stable in appearance. The brainstem and cerebellum are otherwise normal. There is no abnormal parenchymal or leptomeningeal enhancement. The gradient refocused acquisition is normal. The craniovertebral junction, marrow signal, and midline structures are normal. The major intracranial flow voids at the level of the [place] are preserved. The dural venous sinus flow voids are maintained. The paranasal sinuses are well aerated with a significant leftward nasal septal deviation. There are advanced degenerative changes of the left temporomandibular joint with synovial thickening. There is chronic soft tissue/fluid opacification of the right middle ear cavity and a majority of the right mastoid air cells. There is question of prior surgery in the left middle ear cavity and left mastoid air cells when compared to prior CT study from 12/24/2020 with partial absence of the ossicular chain is visible. The nasopharyngeal soft tissues appear normal. MR/MR head/brain wo/w con IMPRESSION: Progressive moderate generalized brain parenchymal volume loss and chronic white matter microangiopathy. Scattered chronic cortically based infarcts in the right frontal lobe and high left frontoparietal lobes. No acute process. No evidence of intracranial metastatic disease. Chronic soft tissue/fluid opacification of the right middle ear cavity and a majority of the right mastoid air cells. Question of prior surgery in the left middle ear cavity and left mastoid air cells. If the patient is symptomatic, recommend further evaluation with a dedicated CT scan of the temporal bones. Severe left temporomandibular degenerative joint disease. Electronically signed by: Samir Zaragoza MD 07/11/2024 10:31 AM EDT
[2024-07-10] MEDS: gadobutroL 10 ML VIAL IVPUSH (15:33)
== END 2024-07-10 14:16 | disposition home or self-care (01) ==
LOC: HO.MRI 14:15
PROVIDERS: PCP Internal Medicine; Visit Provider Internal Medicine Medical Oncology
DX: C18.9 Malignant neoplasm of colon, unspecified (principal); N28.89 Other specified disorders of kidney and ureter; R41.3 Other amnesia
CPT/HCPCS: 70553; A9585

== ENCOUNTER 2024-07-17 14:12 | Outpatient (REF) | payer MEDICARE, MEDICAID, SELFPAY ==
--- NOTE | ~2024-07-17 | CT_ITS ---
EXAMINATION: CT ABDOMEN AND PELVIS WITHOUT AND WITH CONTRAST CLINICAL INFORMATION: Right renal mass. COMPARISON: PET/CT July 08, 2024 MRI abdomen June 23, 2024 TECHNIQUE: Multidetector volumetric imaging was performed of the abdomen and pelvis before and after the IV administration of 85 mL of Omnipaque 350 intravenous contrast. Sagittal and coronal reformatted images were obtained on the technologist's workstation. This CT examination was performed using dose optimization techniques as appropriate, variously including the following: *Automated exposure control *Adjustment of mA and/or kV according to patient size (this includes techniques or standardized protocols for targeted exams where dose is matched to indication/reason for exam; i.e. extremities or head) *Use of iterative reconstruction technique DLP: 391 mGy-cm FINDINGS: LUNG BASES: Small bilateral pleural effusions. LIVER, GALLBLADDER, AND BILIARY TREE: The liver is normal in size, shape, and attenuation. No suspicious hepatic lesion or biliary ductal dilatation is present. The gallbladder is surgically absent. PANCREAS: Mild stranding around the head of the pancreas. SPLEEN: Not enlarged. ADRENAL GLANDS: No adrenal mass. KIDNEYS AND URETERS: Solid enhancing anterior midpole right renal mass measures 1.3 x 1.6 x 1.5 cm. No hydronephrosis or perinephric fluid collection. BLADDER: Unremarkable. GASTROINTESTINAL TRACT: Status post right hemicolectomy. Extensive diverticular disease of the sigmoid colon. Surgical anastomosis in the central mid abdomen. There is focal inflammatory change along the lateral aspect of the inferior liver measuring approximately 1.7 x 2.7 cm. ABDOMINAL WALL: Fat-containing left inguinal hernia. LYMPH NODES: There is subtle infiltration within the retroperitoneum and in the mesentery. Enlarged mesenteric lymph node measures 1.0 x 1.2 cm. Enlarged left para-aortic lymph node measures 1.1 x 1.7 cm. VASCULAR: Normal caliber abdominal aorta. Mild periaortic stranding. PELVIC VISCERA: Enlarged prostate gland. Small free fluid in the pelvis. OSSEOUS STRUCTURES: No destructive bone lesions. CT/CT abdomen pelvis wo/w IV con IMPRESSION: Solid enhancing anterior midpole right renal mass measures 1.3 x 1.6 x 1.5 cm likely representing neoplasm. Focal inflammatory mass indenting the lateral aspect of the inferior liver measures 1.7 x 2.7 2.2 cm possibly arising from the small bowel. Malignancy not excluded. Enlarged mesenteric and retroperitoneal lymph nodes. Subtle infiltration within the retroperitoneum and in the mesentery. Mild periaortic stranding. Small bilateral pleural effusions. Electronically signed by: Rick Vazquez MD 07/17/2024 05:16 PM EDT RP
[2024-07-17] MEDS: iohexoL 350 MG/ML 100 ML INFUS..BTL 85 ML IV (15:12)
== END 2024-07-17 14:13 | disposition home or self-care (01) ==
LOC: HO.CT 14:12
PROVIDERS: PCP Internal Medicine; Visit Provider Internal Medicine Medical Oncology
DX: N28.89 Other specified disorders of kidney and ureter (principal); C18.9 Malignant neoplasm of colon, unspecified; K76.9 Liver disease, unspecified
CPT/HCPCS: 74178; Q9967

== ENCOUNTER 2024-08-18 11:37 | Day surgery (SDC) | payer MEDICARE, MEDICAID, SELFPAY ==
--- NOTE | ~2024-08-18 | IR_ITS ---
CLINICAL HISTORY: Colon cancer. The patient presents to interventional radiology for placement of a port for chemotherapy. PROCEDURES: 1. Real-time ultrasound-guided access into the right internal jugular vein after documentation of selected vessel patency, and permanent image storing in the patient records. 2. Placement of a 6.6 [place] single-lumen power port. CLINICIAN: Troy Manning PA-C MEDICATIONS: - Versed 1.5 mg, Fentanyl 75 mcg, Lidocaine 1% 10 mL SQ -Antibiotics: Ancef 2g -For additional details, please see nursing flowsheet. Complications: None. Estimated blood loss: <5 ml Specimens: None. Contrast: None. Fluoroscopy time: 0.8 min MODERATE SEDATION TIME: 27 min PROCEDURE NOTE: The procedure, risks, benefits, and alternatives were carefully explained to the patient and written informed consent was obtained. The patient was placed supine on the fluoroscopy table. A timeout was performed. The right neck and chest was prepped and draped in usual sterile fashion. Maximum barrier technique was utilized. Local anesthesia was administered to the access site with 1% lidocaine. Under ultrasound guidance, the right internal jugular vein was accessed with a 5 fr micropuncture set. A 0.035 in wire was advanced into the IVC. A peel-away sheath was advanced over the wire and into the SVC, and the wire was removed. Next, subcutaneous lidocaine was administered to the chest. The port pocket was created after the skin incision, utilizing blunt dissection. Using blunt dissection, a subcutaneous tunnel was created that connects from the port pocket to the venotomy site. Through the peel-away sheath, the 6.6 [place] port catheter was placed. The catheter position was verified with fluoroscopy to be at the superior vena cava/right atrial junction. The port was connected to the catheter and was placed in the pocket. The venotomy site was closed with a 3-0 Vicryl subcutaneous suture. The port incision site was closed with interrupted 3-0 Vicryl subcutaneous sutures and surgical glue. Prior to closing the skin, 1 g of Ancef solution was placed in the pocket. The port was tested, flushed, and packed with heparin per routine protocol. The patient tolerated the procedure well. The patient was stable after the procedure and was transferred to the PACU. The procedure was performed under moderate sedation and with a dedicated nurse with continuous monitoring of vital signs. A permanent image of the ultrasound the neck and fluoroscopic image of the chest was saved and sent to PACS. FINDINGS: 1. Patent right internal jugular vein 2. Placement of a 6.6 [place] single lumen power port. 3. Port flushes and aspirates very well with a 10 mL syringe. No pneumothorax. IR/IR us guide venous access IMPRESSION: Placement of a 6.6 [place] single-lumen power port. PLAN: - The patient will be discharged home when stable by sedation protocol. - Port may be used immediately. This procedure was performed by rToy Manning PA-C, and directly supervised by Dr. Benoit Electronically signed by: Jarrett Collins MD 09/08/2024 02:31 PM EDT
--- NOTE | ~2024-08-18 | IR_ITS ---
CLINICAL HISTORY: Colon cancer. The patient presents to interventional radiology for placement of a port for chemotherapy. PROCEDURES: 1. Real-time ultrasound-guided access into the right internal jugular vein after documentation of selected vessel patency, and permanent image storing in the patient records. 2. Placement of a 6.6 [place] single-lumen power port. CLINICIAN: Troy Manning PA-C MEDICATIONS: - Versed 1.5 mg, Fentanyl 75 mcg, Lidocaine 1% 10 mL SQ -Antibiotics: Ancef 2g -For additional details, please see nursing flowsheet. Complications: None. Estimated blood loss: <5 ml Specimens: None. Contrast: None. Fluoroscopy time: 0.8 min MODERATE SEDATION TIME: 27 min PROCEDURE NOTE: The procedure, risks, benefits, and alternatives were carefully explained to the patient and written informed consent was obtained. The patient was placed supine on the fluoroscopy table. A timeout was performed. The right neck and chest was prepped and draped in usual sterile fashion. Maximum barrier technique was utilized. Local anesthesia was administered to the access site with 1% lidocaine. Under ultrasound guidance, the right internal jugular vein was accessed with a 5 fr micropuncture set. A 0.035 in wire was advanced into the IVC. A peel-away sheath was advanced over the wire and into the SVC, and the wire was removed. Next, subcutaneous lidocaine was administered to the chest. The port pocket was created after the skin incision, utilizing blunt dissection. Using blunt dissection, a subcutaneous tunnel was created that connects from the port pocket to the venotomy site. Through the peel-away sheath, the 6.6 [place] port catheter was placed. The catheter position was verified with fluoroscopy to be at the superior vena cava/right atrial junction. The port was connected to the catheter and was placed in the pocket. The venotomy site was closed with a 3-0 Vicryl subcutaneous suture. The port incision site was closed with interrupted 3-0 Vicryl subcutaneous sutures and surgical glue. Prior to closing the skin, 1 g of Ancef solution was placed in the pocket. The port was tested, flushed, and packed with heparin per routine protocol. The patient tolerated the procedure well. The patient was stable after the procedure and was transferred to the PACU. The procedure was performed under moderate sedation and with a dedicated nurse with continuous monitoring of vital signs. A permanent image of the ultrasound the neck and fluoroscopic image of the chest was saved and sent to PACS. FINDINGS: 1. Patent right internal jugular vein 2. Placement of a 6.6 [place] single lumen power port. 3. Port flushes and aspirates very well with a 10 mL syringe. No pneumothorax. IR/IR cvc insert tunnel w prt/nutritionist IMPRESSION: Placement of a 6.6 [place] single-lumen power port. PLAN: - The patient will be discharged home when stable by sedation protocol. - Port may be used immediately. This procedure was performed by Troy Manning PA-C, and directly supervised by Dr. Benoit Electronically signed by: Jarrett Collins MD 09/08/2024 02:31 PM EDT
[2024-08-18 12:23] VITALS: BMI 22.0
[2024-08-18 12:28] LABS: MANUAL DIFF FLAG NO
[2024-08-18 12:31] LABS: Basophils Percent Auto 0.4 % (0-2); Eosinophils Percent Auto 0.4 % (0-4); Hematocrit 41.2 % (42.0-52.0); Hemoglobin 13.9 g/dl (14.0-18.0); Imm Gran Abs Auto 0.01 X10*3/uL (0.00-0.03); Imm Gran Pct Auto 0.4 % (0.0-0.4); Lymphocytes Absolute Auto 0.7 X10*3/uL (1.2-4.9); Lymphocytes Percent Auto 25.5 % (20-40); Mean Corpuscular HGB Conc 33.7 g/dl (31.0-36.0); Mean Corpuscular Volume 103.8 fL (80.0-98.0); Mean Platelet Volume 8.5 fL (9.4-12.4); Monocytes Absolute Auto 0.3 X10*3/uL (0.1-1.2); Monocytes Percent Auto 10.2 % (2-11); Neutrophils Absolute Auto 1.7 x10*3/uL (2.0-8.3); Neutrophils Percent Auto 63.1 % (45-73); Platelet Count 117 X10*3/uL (160-400); Red Blood Count 3.97 X10*6/uL (4.60-5.80); Red Cell Distribution Width 12.7 % (11.0-16.0); White Blood Count 2.7 X10*3/uL (4.8-10.8)
[2024-08-18 12:37] LABS: Prothrombin Time 11.2 SEC (10.9-12.4)
[2024-08-18 12:39] LABS: Partial Thromboplastin Time 31.6 SEC (26.0-36.8)
--- NOTE | 2024-08-18 13:21 | MHC.SHP ---
Pre-Procedural Eval Section A - 24 Hr Update-Section A only Date of Service: 08/18/24 Section B - Complete if H&P > 30 days Chief Complaint: neoplasm of colon-facilitate chemo Details of Present Illness: 58 y/o man with colon cancer and poor iv access Relevant Family History (Specify if Yes): No Relevant Social History: None Present Medications: see Short Stay Collaborative assessment Medical History: Significant History History of Previous Operations: Relevant previous surgery/procedure and date(s) Allergies: Allergies Allergy/AdvReac Type Severity Reaction Status Date / Time No Known Allergies Allergy Unknown NKA Verified 07/03/24 11:18 [No Known Allergies*] Review of Systems Sugical H&P ROS: Negative: Constitution, Cardiovascular and Respiratory Exam Surgical H&P Exam: Normal: Heart, Normal: Lungs, Normal: Skin and Normal: Neurological Plan 58 y/o man with colon cancer and poor iv access -Port Time Spent With Patient Time: Total time managing care of this patient today ____ minutes.
[2024-08-18 14:25] VITALS: BP 138/77; PULSE 69; RESP 16; TEMP 36.6; O2SAT 98
== END 2024-08-18 14:36 | disposition home or self-care (01) ==
LOC: HO.SSS 11:38
PROVIDERS: Physician Assistant Surgical; Student in an Organized Health Care Education/Training Program; PCP Internal Medicine; Visit Provider Internal Medicine Medical Oncology
DX: Z45.2 Encounter for adjustment and management of vascular access device (principal); C18.9 Malignant neoplasm of colon, unspecified; Z85.47 Personal history of malignant neoplasm of testis; Z92.21 Personal history of antineoplastic chemotherapy; D69.6 Thrombocytopenia, unspecified; D72.818 Other decreased white blood cell count; K57.30 Diverticulosis of large intestine without perforation or abscess without bleeding; N28.1 Cyst of kidney, acquired; J43.9 Emphysema, unspecified; I10 Essential (primary) hypertension; R62.50 Unspecified lack of expected normal physiological development in childhood; Z90.79 Acquired absence of other genital organ(s); Z90.49 Acquired absence of other specified parts of digestive tract
CPT/HCPCS: 36415; 36561; 76937; 85025; 85610; 85730; 99152; 99153; A4649; C1725; C1757; C1769; C1788; C1887; C1894; J0131; J0690; J1642; J1644; J2003; J2250; J2310; J3010

== ENCOUNTER → 2024-08-18 13:00 | Outpatient (BNV) | payer MEDICARE, MEDICAID, SELFPAY | PROVIDERS: PCP Internal Medicine; Visit Provider Physician Assistant Surgical | DX: C18.9 Malignant neoplasm of colon, unspecified (principal) | CPT/HCPCS: 36561; 76937; 77001; 99152 ==

== ENCOUNTER 2024-09-29 16:39 | Outpatient (AMB) | payer MEDICARE, MEDICAID, SELFPAY ==
--- NOTE | 2024-09-29 16:48 | MHC.PC.OV ---
Vital Signs 09/29/24 16:49 Height 5 ft 3 in Weight 136 lb 8 oz BMI 24.2 BP 138/70 Blood Pressure Location Lt brachial Position Sitting Intake Visit Reasons: bp Intake Note: Patient here for a follow up BP Reference Data Expert Required: No Accompanied by: Self / Same As Patient Allergies No Known Allergies [No Known Allergies*] Allergy (Unknown, Verified 09/29/24 17:00) NKA Medication List - Last Reconciled 09/29/24 by Nasima Costa MD amlodipine 10 mg PO DAILY 90 days capecitabine 1,500 mg (3 x 500 mg) PO BID dexamethasone 4 mg PO BID ondansetron 8 mg PO Q8H Tobacco use date assessed: 03/27/24 Dental Screening Dental Screen Date: 09/29/24 Did you have a dental visit in the last 12 months?: Yes Did you have a dental problem in the last 6 months where you did not have access to dental care?: No Was dental information given to patient?: Patient has dentist HPI HPI Comments History of Present Illness Details The patient is a 59-year-old male accompanied by pie crust mixer which is his brother presenting with concerns about hypertension management and complications following cancer treatment. He has a history of essential hypertension with previously recorded blood pressure readings that have averaged higher than the desired range. His current medication includes Amlodipine 10 mg for hypertension. Recent blood pressure recorded at 138/70, previously 159/82. Losartan 25 mg was considered for additional management. In addition, the patient has a history of colon cancer diagnosed earlier this year and underwent resection surgery in May. Postoperatively, a complication arose involving nerve injury during PICC line placement, leading to paralysis and pain in the left arm. An additional chemotherapy regimen for cancer treatment includes Capecitabine, which has been contributing side effects such as sensitivity to cold. Moreover, the patient has been diagnosed with renal cancer, where a decision was made to undergo a procedure to freeze the malignant lesions. The patient has also been experiencing low white blood cell counts due to chemotherapy, but received a shot that improved hematologic indices without needing transfusion. FOR[facility]LY [facility] Medical History Colon cancer Wears hearing aid in right ear Physical exam Thrombocytopenia Vertigo HTN (hypertension) Testicle cancer Hearing loss Developmental delay, mild Autoimmune thyroiditis Bicytopenia [place] Family history of hypertension Surgical History Hx of surgical procedure (~06/03/24) Hx of colonoscopy (04/14/24) H/O arthroscopic knee surgery History of orchiectomy History of neck surgery History of cholecystectomy History of tonsillectomy Family History Father Lung cancer Hypertension Mother Emphysema lung Hypertension Paternal Grandfather Cancer Brother Slow to wake up after anesthesia PONV (postoperative nausea and vomiting) Social History Household Members: Family Housing: House Are you a primary home care aide to a significant other at home: No Do you presently have visiting nurse or other home services: No Alcohol intake: never Patient Tobacco Use Status: Never used Tobacco e-Cigarette/Vaping Use: Never Used Second Hand Smoke Exposure: No service: No Current occupational status: employed Current occupation: [employer] Current occupational exposures/hazards: No Cognitive needs: No Hearing needs: Yes Vision needs: No Questionnaire Thrive Questionnaire Date Thrive assessed: 06/04/24 PHUC-7 AMB Questionnaire PHUC-7 Date PHUC - 7 assessed: 03/27/24 Source: Developed by Drs. Suresh Zhao, Maddy Wolf, Emmanuel Ortega and colleagues, with an educational makenzie from [employer]. Review of Systems Const All systems reviewed & are unremarkable except as noted in HPI and below Card Denies chest pain at rest, Denies chest pain with activity, Denies edema, Denies irregular heart rhythm, Denies claudication, Denies dyspnea, Denies dyspnea on exertion, Denies orthopnea, Denies paroxysmal nocturnal dyspnea and Denies slow heart rate Resp Denies cough, Denies dyspnea and Denies dyspnea on exertion GI Denies abdominal pain, Denies change in bowel habits, Denies excessive flatus, Denies nausea and Denies vomiting Denies urinary hesitancy, Denies urinary incontinence and Denies urinary urgency Musc Denies atrophy, Denies deformity and Denies limited range of motion Skin/Breast Denies bleeding lesions, Denies changing lesions and Denies rash Physical exam (Primary Care) Vital Signs: Last Vital Signs BP 138/70 09/29/24 16:49 BMI result Body Mass Index 24.2 Tobacco/Smoking Status: Tobacco use Status Tobacco use date assessed 03/27/24 09/29/24 16:51 Patient Tobacco Use Status Never used Tobacco 09/29/24 16:51 e-Cigarette/Vaping Use Never Used 09/29/24 16:51 Thrive Assessment: Date of Thrive Assessment Date Thrive assessed 06/04/24 09/29/24 16:51 Resp Effort & Inspection: normal respiratory effort Auscultation: clear to auscultation bilaterally Cardio Jugular venous distension: no JVD Rate: regular rate Rhythm: regular rhythm Heart sounds: S1 normal heart sound present and S2 normal heart sound present Extrem General: Yes full ROM Office Procedures Flu Questionnaire Does the patient have a severe egg allergy?: No Immunizations Fluarix Triv [id number] (PF) 45 mcg (15 mcg x 3)/0.5 mL IM syringe Performing Provider: Nasima Costa MD [place] [facility] [facility] [place] [facility] Documented (not given) by: NHUNG Sol on 09/29/24 16:56 Reason Not Given: Received Previously Coding Level of Care Code Est Pt Level 3 (95881) Complex EM visit Add On G2211 Diagnoses Colon cancer C18.9 Essential hypertension I10 Time Spent (min) 19 Assessment & Plan Assessment & Plan (1) Colon cancer: Code(s): C18.9 - Malignant neoplasm of colon, unspecified Category: Medical (2) Essential hypertension: Code(s): I10 - Essential (primary) hypertension Category: Medical Plan 1. Essential Hypertension: Continue Amlodipine 10 mg. Add Losartan 25 mg to the regimen to manage blood pressure more effectively. Initiate home blood pressure monitoring. 2. Paralysis and Nerve Injury: Review current symptoms and monitor for further nerve healing. Consider referral to occupational therapy if no improvement. 3. Colon Cancer: Continue with current oncological management and surveillance. 4. Renal Cancer: Proceed with the cryoablation for localized tumor in the kidney. 5. Chemotherapy Side Effects: Monitor for ongoing effects, manage as necessary. Scheduled chemotherapy completion in December. 6. Hematological Issues: Continue monitoring blood counts. Review hepatological function if issues arise due to previous imaging. Patient was informed and verbally consented to the use of an ambient scribe for clinic note documentation during this visit. I discussed with the patient the current management plan for various health issues. We reviewed that his hypertension seems better controlled with the introduction of Losartan, accompanying Amlodipine therapy. We also considered the complication arising from chemotherapy, specifically nerve injury, and the possibility of further evaluation or physical therapy. The patient acknowledged the risks and prognosis associated with his cancer diagnoses and agreed to proceed with the planned renal cancer therapy. Monitoring of chemotherapy side effects was advised, and I illustrated the expectation of resolving low blood counts due to recent treatment interventions without further transfusion. The need for consistent home blood pressure monitoring was emphasized, and follow-up blood work four months later was planned, including lipid and metabolic panels. Screening for PSA levels and monitoring urinary symptoms were discussed as part of his health maintenance plan. Orders: Orders Lipid Panel 4 Months E78.5 - Hyperlipidemia, unspecified Comprehensive [place]. Panel Fast 4 Months C18.9 - Malignant neoplasm of colon, unspecified PSA,Total (Free>4and<10) 4 Months R35.1 - Nocturia Influenza [id number] Immunization Today Z23 - Encounter for immunization Medications: New losartan 25 mg PO DAILY 90 tabs 1RF 90 days Patient Instructions: - Continue Amlodipine and start Losartan as prescribed. - Monitor blood pressure at home regularly. - Attend follow-up appointments for cancer management and reassessment of nerve injury. - Report any worsening of paralysis or new symptoms immediately. - Follow through with scheduled chemotherapy treatments and associated lab tests. - Ensure adequate hydration and address any further gastrointestinal symptoms promptly.
[2024-09-29 16:49] VITALS: BP 138/70; BMI 24.2
== END 2024-09-29 17:28 | disposition home or self-care (01) ==
PROVIDERS: PCP Internal Medicine; Visit Provider Internal Medicine
DX: C18.9 Malignant neoplasm of colon, unspecified (principal); I10 Essential (primary) hypertension; Z23 Encounter for immunization

== ENCOUNTER → 2024-09-29 16:39 | Outpatient (BNVA) | payer MEDICARE, MEDICAID, SELFPAY | PROVIDERS: PCP Internal Medicine; Visit Provider Internal Medicine | DX: C18.9 Malignant neoplasm of colon, unspecified (principal); I10 Essential (primary) hypertension | CPT/HCPCS: 90471; 99212 ==

== ENCOUNTER 2025-02-06 09:16 | Outpatient (REF) | payer MEDICARE, SELFPAY ==
--- NOTE | ~2025-02-06 | CT_ITS ---
CLINICAL HISTORY: Follow-up on colon cancer, statuspost chemotherapy CT chest with contrast Comparison: None Findings: The tip of Port-A-Cath is in the right atrium. The heart size is normal. The visualized thyroid and mediastinum are unremarkable. No consolidation or effusion. Calcified granuloma of the left lower lobe abutting the fissure. 2.5 mm para fissure nodular density of the right lower lobe series 4, image 58. The upper abdomen is unremarkable. No acute fractures. Diffuse idiopathic skeletal hyperostosis. IMPRESSION: No definite metastatic disease in the chest. Incidental findings as above. This document has been electronically signed by: Danielle Garcia MD on 02/06/2025 16:59:35
--- NOTE | ~2025-02-06 | CT_ITS ---
CLINICAL HISTORY: Follow-up on colon cancer CT abdomen and pelvis with contrast Comparison: None Findings: The visualized portions of the lungs are normal in appearance. The liver is normal in size without suspicious focal hepatic lesions. Hepatic steatosis. No intrahepatic or extrahepatic ductal dilatation is seen. The hepatic and portal veins are patent. Post cholecystectomy. Pancreas, spleen and adrenals are normal in appearance. No hydronephrosis or calculi. 1.1 x 1.2 cm lesion of the anterior right kidney with attenuation of 90 Hounsfield unit series 3, image 21. The abdominal aorta demonstrates no evidence of aneurysmal dilatation or dissection. Atherosclerosis calcification of the aorta. No bowel obstruction. Status post right hemicolectomy. Colonic diverticulosis. The pelvic organs are within normal limits. No intraperitoneal free air or fluid is visualized. No pathologic lymphadenopathy is seen. There are no osseous or soft tissue abnormalities. IMPRESSION: Status post right hemicolectomy. No evidence of metastatic disease in the abdomen and pelvis. Indeterminate lesion of the right kidney. Further evaluation by MRI is recommended. Colonic diverticulosis. Additional findings as above. This document has been electronically signed by: Danielle Garcia MD on 02/06/2025 17:15:26
[2025-02-06] MEDS: iohexoL 350 MG/ML 75 ML INFUS..BTL 85 ML IV (13:44)
[2025-02-06] MEDS: Barium Sulfate Oral (Vanilla) 450 ML ORAL.SUSP 900 ML PO (13:45)
== END 2025-02-06 09:17 | disposition home or self-care (01) ==
LOC: HO.CT 09:16
PROVIDERS: PCP Internal Medicine; Visit Provider Internal Medicine Medical Oncology
DX: C18.9 Malignant neoplasm of colon, unspecified (principal)
CPT/HCPCS: 71260; 74177; Q9967

== ENCOUNTER → 2025-02-06 09:18 | Outpatient (BNV) | payer MEDICARE, SELFPAY | PROVIDERS: PCP Internal Medicine; Visit Provider Nuclear Medicine | DX: C18.9 Malignant neoplasm of colon, unspecified (principal) | CPT/HCPCS: 71260; 74177 ==

== ENCOUNTER 2025-02-21 09:00 | Outpatient (REF) | payer MEDICARE, SELFPAY ==
[2025-02-21 09:33] LABS: MANUAL DIFF FLAG NO
[2025-02-21 10:50] LABS: Basophils Percent Auto 0.4 % (0-2); Eosinophils Absolute Auto 0.1 X10*3/uL (0.0-0.4); Eosinophils Percent Auto 2.2 % (0-4); Imm Gran Abs Auto 0.03 X10*3/uL (0.00-0.03); Imm Gran Pct Auto 1.1 % (0.0-0.4); Lymphocytes Absolute Auto 0.8 X10*3/uL (1.2-4.9); Lymphocytes Percent Auto 28.1 % (20-40); Mean Corpuscular HGB Conc 33.3 g/dl (31.0-36.0); Mean Corpuscular Hemoglobin 34.5 pg (27.0-33.0); Mean Corpuscular Volume 103.4 fL (80.0-98.0); Mean Platelet Volume 9.8 fL (9.4-12.4); Monocytes Absolute Auto 0.3 X10*3/uL (0.1-1.2); Monocytes Percent Auto 10.9 % (2-11); Neutrophils Absolute Auto 1.5 x10*3/uL (2.0-8.3); Neutrophils Percent Auto 57.3 % (45-73); Red Blood Count 4.06 X10*6/uL (4.60-5.80); Red Cell Distribution Width 13.7 % (11.0-16.0); White Blood Count 2.7 X10*3/uL (4.8-10.8)
[2025-02-21 10:57] LABS: Platelet Count 90 X10*3/uL (160-400)
[2025-02-21 11:30] LABS: PSA,Total (Free>4and<10) 1.71 ng/mL (0.00-4.00)
[2025-02-21 11:31] LABS: Alanine Aminotransferase 29 U/L (0-40); Alkaline Phosphatase 83 U/L (39-117); Anion Gap 12 (12-20); Aspartate Amino Transferase 40 U/L (5-37); Bilirubin Total 0.7 mg/dL (0.0-1.0); Blood Urea Nitrogen 15 mg/dL (9-16); Calcium 8.9 mg/dL (8.4-10.2); Carbon Dioxide 25 mmol/L (22-29); Chloride 105 mmol/L (96-108); Cholesterol 145 mg/dL (<200); Estimated Glomerular Filt Rate > 60; Glucose Fasting 91 mg/dL (60-99); Glucose Random 90 mg/dL (60-115); HDL Cholesterol 48 mg/dL (>40); LDL Cholesterol Calculated 84 mg/dL (<100); Potassium 4.1 mmol/L (3.3-5.1); Sodium 138 mmol/L (135-145); Total Protein 7.4 g/dL (6.5-8.0); Triglycerides 66 mg/dL (<150)
[2025-02-23 08:13] LABS: HBc Num1 0.06 S/CO (0.00-0.79); HBsAGNum1 0.31 S/CO (0.00-0.99); Hepatitis B Core Antibody Nonreactive (Nonreactive); Hepatitis B Surface Antigen Negative (Negative); ~Hepatitis B Surface Antibody NONREACTIVE (Nonreactive)
== END 2025-02-21 09:01 | disposition home or self-care (01) ==
LOC: HO.LAB 09:00
PROVIDERS: Internal Medicine Gastroenterology; Internal Medicine Medical Oncology; PCP Internal Medicine; Visit Provider Internal Medicine
DX: N28.9 Disorder of kidney and ureter, unspecified (principal); C18.9 Malignant neoplasm of colon, unspecified; E78.5 Hyperlipidemia, unspecified; R35.1 Nocturia; Z12.5 Encounter for screening for malignant neoplasm of prostate
CPT/HCPCS: 36415; 80053; 80061; 84153; 85025; 86704; 86706; 87340

== ENCOUNTER 2025-03-30 16:29 | Outpatient (AMB) | payer MEDICARE, MEDICAID, SELFPAY ==
--- OUTSIDE RECORDS SUMMARY | 2025-03-30 16:31 | XMS_ITS | Continuity of Care Document ---
Author Organization [facility] ter Address [address] [place] [id number]- Care Team Providers Care Recruitment Assistant Name Role Phone Gage Costa MD, Radha Primary Care Physician [phone] Encounter 03/23/25 - 03/24/[address] [id number] Attending Physician: Not on Staff, Attending MD Referring Physician: Not on Staff, Referring MD Encounter Type: SMRI Allergies, Adverse Reactions, Alerts No Known Allergies Medications amLODIPine 5 mg oral tablet 0 Refills, Maintenance, 07/18/24 11:19:00 AM EDT, Partial fill upon patient request if the prescription is for a schedule II opioid drug. Start Date: 07/18/24 Status: Ordered Repeat number: 1 capecitabine 500 mg oral tablet = 800 mg/m2, By Mouth, 2 times a day, 0 Refills, Maintenance, 12/22/24 8:01:00 AM EST, Partial fill upon patient request if the prescription is for a schedule II opioid drug. Start Date: 12/22/24 Status: Ordered Repeat number: 1 Results Radiology Reports * Exam Date Time Procedure Performing Provider Status 03/23/25 6:15 PM MRI Abdomen W+W/O Contrast Auth (Verified) Notes: (MRI Abdomen W+W/O Contrast) Reason For Exam: renal mass protocol sp cryoablation 02/18/25;renal massprotocol sp cryoablation 02/18/25 RESULT: MRI Abdomen W+W/O Contrast [facility] VISIT NUMBER :[id number] Patient Name: Oliva Oropeza Date of : 1965 Date of Exam: 03-23-2025 Referring Physician: [facility] [address] [facility] [address] [place] [id number] Exam: MR Abdomen (C-/C+) CPT 91999 Room Description: [facility] 3.0T CLINICAL INDICATION: Renal mass protocol status post cryoablation on 02/18/2025. TECHNIQUE: Multiplanar, multisequence pre and post contrast MRI evaluation of the abdomen was performed. 12 cc of Dotarem gadolinium administered intravenously. COMPARISON: CT procedure from 02/18/2025 and 08/01/[address] abdomen pelvis from 07/17/2024 Outside MRI abdomen from 06/23/2024 FINDINGS: Exam degraded by motion. LOWER THORAX: No pleural or pericardial effusion. LIVER: Normal contour and size. Normal parenchymal enhancement. No suspicious lesion. GALLBLADDER: Status-post cholecystectomy. BILE DUCTS: No biliary ductal dilatation. SPLEEN: Normal. PANCREAS: No solid mass. Pancreas divisum. No pancreatic ductal dilatation. ADRENAL GLANDS: No nodules. KIDNEYS: Status post ablation of right anterior midpole mass. Heterogeneous mildly T2 hypointense oval ablation zone encompassing the previously imaged lesion measures 3.6 x 2 cm (3:26). Within the ablation zone is a 1.1 cm round T1 hyperintense (9:52) T2 hypointense (3:26) focus likely corresponding to the treated lesion. Subtraction images are degraded by motion but there is no convincing nodular enhancement (19:52). No hydronephrosis. Multiple simple parapelvic cysts. STOMACH/UPPER GI TRACT: Scattered colonic diverticula. Stomach and visualized abdominal bowel normal in caliber. PERITONEUM AND RETROPERITONEUM: No loculated fluid collection or peritoneal mass. LYMPH NODES: No lymphadenopathy. VESSELS: Abdominal aorta is nonaneurysmal with moderate atherosclerotic irregularity. Hepatic, portal and splenic veins patent. Visualized inferior vena cava unremarkable. ABDOMINAL WALL: Unremarkable. BONES: Unremarkable. IMPRESSION: Exam heavily degraded by motion. Status post ablation of the right anterior interpolar renal lesion with ablation zone encompassing the previously imaged lesion. No convincing residual enhancement is appreciated. Attention on follow-up recommended. Electronically Signed By: Parvez Byrd MD Dictated By: Not on Staff , RAYMOND RIGGINS Dictated Date/Time: 03/24/25 9:27 am Reviewed By: Not on Staff , RAYMOND RIGGINS Signed By: Not on Staff , RAYMOND RIGGINS Signed Date/Time: 03/24/25 9:27 am Transcribed By: CHASITY Transcribed Date/Time: 03/24/25 9:27 am Social History Social History Type Response Smoking Status Never (less than 100 in lifetime) entered on: 07/18/24 Sex Sex Representation Male (finding) Patient Care team information Care Team Personnel Name: Myra Weber RN Position: S RN Member Role: Primary Care Nurse Name: Uriel Deal RN Position: S RN Member Role: Primary Care Nurse Name: Nasima Jiménez MD Position: Reference Physician Member Role: PCP Address: [address] [place] [address] [address] [place] [id number] Telecom: Care Team Related Persons Name: LUZ MARIA OROPEZA Name: ADELINE OROPEZA Insurance Providers Guarantor name: OLIVA OROPEZA Health Plan Information #: 1 Payer: [facility] MEDIC[facility] ADV HMO Member Number: NA Policy Number: NA Group Number: NA Health Plan Information #: 2 Payer: [employer] Member Number: NA Policy Number: NA Group Number: NA
--- NOTE | 2025-03-30 16:36 | A.OFFPC_ITS ---
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 Accompanied by: Brother Allergies No Known Allergies [No Known Allergies*] Allergy (Unknown, Verified 03/30/25 16:51) NKA Medication List - Last Reconciled 03/30/25 by Nasima Costa MD amlodipine 10 mg PO DAILY 90 days losartan 25 mg PO DAILY 90 days Tobacco use date assessed: 03/30/25 Dental Screening Dental Screen Date: 03/30/25 Did you have a dental visit in the last 12 months?: Yes Did you have a dental problem in the last 6 months where you did not have access to dental care?: No Was dental information given to patient?: Patient has dentist HPI HPI Comments History of Present Illness Details The patient is a 59-year-old male presenting for physical exam. The conversation indicates his colon cancer was identified following a colonoscopy. The diagnosis was confirmed as stage 3, and there has been a metastasis to the colon. The patient also has a history of a kidney tumor which is currently being assessed following an MRI of the chest and abdomen conducted a week ago, intended to evaluate the state and presence of any further tumors. His past surgical history is extensive, including a right colon resection with extensive lysis of adhesions, knee surgery, tonsillectomy, testicular surgery, and gallbladder removal. There is a noted history of trauma at work where he was injured two separate times, involving a knife and a skewer. His recent laboratory values show persistent low white blood cells at 2.7 since January, hemoglobin is slightly decreased from 14 to 13, but other routine blood tests including kidney function, liver enzymes, and calcium levels are within normal limits. - Colonoscopy reviewed; showed presence of colon cancer. - Last Tdap vaccine administered in 2014 ; Td vaccine update discussed due to work-related injuries. - Extensive blood work including normal white blood cell count, hemoglobin, kidney function, liver enzymes, calcium, and excellent cholesterol levels noted (total cholesterol: 145). - Previous screenings include MRI of the chest and abdomen a week ago. - Prostate exam reportedly normal. [facility] Medical History Colon cancer Wears hearing aid in right ear Physical exam Thrombocytopenia Vertigo HTN (hypertension) Testicle cancer Hearing loss Developmental delay, mild Autoimmune thyroiditis Bicytopenia Seminoma Family history of hypertension Surgical History Hx of surgical procedure (~06/03/24) Hx of colonoscopy (04/14/24) H/O arthroscopic knee surgery History of orchiectomy History of neck surgery History of cholecystectomy History of tonsillectomy Family History Father Lung cancer Hypertension Mother Emphysema lung Hypertension Paternal Grandfather Cancer Brother Slow to wake up after anesthesia PONV (postoperative nausea and vomiting) Social History Household Members: Family Housing: House Are you a primary medicare insurance specialist to a significant other at home: No Do you presently have visiting nurse or other home services: No Alcohol intake: never Patient Tobacco Use Status: Never used Tobacco e-Cigarette/Vaping Use: Never Used Second Hand Smoke Exposure: No service: No Current occupational status: employed Current occupation: [email or web address] Current occupational exposures/hazards: No Cognitive needs: No Hearing needs: Yes Vision needs: No Questionnaire PHQ-9 Over the last 2 weeks, how often have you been bothered by any of the following problems? 1. Little interest or pleasure in doing things: not at all 2. Feeling down, depressed, or hopeless: not at all 3. Trouble falling or staying asleep, or sleeping too much: not at all 4. Feeling tired or having little energy: not at all 5. Poor appetite or overeating: not at all 6. Feeling bad about yourself - or that you are a failure or have let yourself or your family down: not at all 7. Trouble concentrating on things, such as reading the newspaper or watching television: not at all 8. Moving or speaking so slowly that other people could have noticed. Or the opposite - being so fidgety or restless that you have been moving around a lot more than usual: not at all 9. Thoughts that you would be better off or of hurting yourself in some way: not at all Total score: 0 Depression Screening Interpretation: Negative Depression Screening Done: Yes 58279 - PHQ-9 Billing: Yes Source: Developed by Drs. Suresh Zhao, Maddy Wolf, Emmanuel Ortega and colleagues, with an educational makenzie from [employer]. Thrive Questionnaire Date Thrive assessed: 03/30/25 I am a: Patient What is your living situation today?: I have a steady place to live Within the past 12 months, did the food you bought not last and you didn't have the money to get more?: Never true Within the past 12 months, did you worry whether your food would run out before you got money to buy more?: Never true Do you have trouble paying for medicines?: No Do you have trouble getting transportation to medical appointments?: No Do you have trouble paying your heating and electricity bill?: No Do you have trouble taking care of your child, family member or friend?: No Do you have trouble with day-to-day activities such as bathing, preparing meals, shopping, managing finances, etc.?: No Are you currently unemployed and looking for a job?: No Are you interested in more education?: No Please select the resources that you would like help with: None Currently or been in a relationship where the following occur: No concerns reported THRIVE Score: 0 AUDIT C Alcohol Use Questionnaire (AUDIT-C) 1. How often do you have a drink containing alcohol?: Never Total Score: 0 Score Reviewed/Action Taken: No PHUC-7 AMB Questionnaire PHUC-7 Date PHUC - 7 assessed: 03/30/25 Feeling nervous, anxious, or on edge: 0 = Not at all Not being able to stop or control worryin = Not at all Worrying too much about different things: 0 = Not at all Trouble relaxin = Not at all Being so restless that it is hard to sit still: 0 = Not at all Becoming easily annoyed or irritable: 0 = Not at all Feeling afraid as if something awful might happen: 0 = Not at all Total PHUC-7 score (0-4 normal; 5-9 mild; 10-14 moderate; 15-21 severe): 0 Source: Developed by Maddy Gaytan Kurt Kroenke and colleagues, with an educational makenzie from [employer]. PHUC-7 Assessment Billing PHUC-7 Assessment Tool: PHUC-7 Assessment 01181 Review of Systems Const All systems reviewed & are unremarkable except as noted in HPI and below Card Denies chest pain at rest, Denies chest pain with activity, Denies edema, Denies irregular heart rhythm, Denies claudication, Denies dyspnea, Denies dyspnea on exertion, Denies orthopnea, Denies paroxysmal nocturnal dyspnea and Denies slow heart rate Resp Denies cough, Denies dyspnea and Denies dyspnea on exertion GI Denies abdominal pain, Denies change in bowel habits, Denies excessive flatus, Denies nausea and Denies vomiting Physical exam (Primary Care) Vital Signs: Last Vital Signs BP 122/74 03/30/25 16:45 BMI result Body Mass Index 24.6 Tobacco/Smoking Status: Tobacco use Status Tobacco use date assessed 03/30/25 03/30/25 16:47 Patient Tobacco Use Status Never used Tobacco 03/30/25 16:38 e-Cigarette/Vaping Use Never Used 03/30/25 16:38 PHQ-9: PHQ-9 Score PHQ-9: Total score 0 03/30/25 17:24 Depression Screening Interpretation: Negative Thrive Assessment: Date of Thrive Assessment Date Thrive assessed 03/30/25 03/30/25 16:38 Currently or been in a relationship where the following occur: No concerns reported [facility] Head: Yes normal to inspection, Yes normocephalic and Yes atraumatic Ears: external ears normal Eyes General: appearance normal, both eyes and all related structures Eyelids: Yes eyelids normal Conjunctivae: conjunctivae normal Neck Neck: Yes normal visual inspection and Yes supple Resp Effort & Inspection: normal respiratory effort Auscultation: clear to auscultation bilaterally Cardio Jugular venous distension: no JVD Rate: regular rate Rhythm: regular rhythm Heart sounds: S1 normal heart sound present and S2 normal heart sound present GI Inspection: Yes normal to inspection Palpation (GI): Soft to palpation and nontender Auscultation: normal bowel sounds Skin General skin exam: no rashes or lesions noted Neuro General: no focal motor deficits Extrem General: Yes full ROM Psych Appearance: grossly normal Immunizations tetanus-diphtheria toxoids-Td 2 Lf unit-2 Lf unit/0.5 mL IM suspension Performing Provider: Nasima Costa MD [facility] Administered by: NHUNG Sol on 03/30/25 17:24 Dose Route Admin Location Dispensed Lot Number Expiration Date NDC Vest Baster 0.5 mL IM Right Deltoid 0.5 mL [id number] 01/10/27 [id number] [employer] VIS Given Date VIS Provided VIS Publication Date 03/30/25 Single Vaccine 21 Eligibility Eligibility Date Funding Source Not [facility] Eligible 03/30/25 Private Coding Level of Care Code Est Pt Prev Care 40-64y(42462) Diagnoses Physical exam Z00.00 Colon cancer C18.9 Additional Codes PHUC-7 Assessment Billing - PHUC-7 Assessment Tool: PHUC-7 Assessment 01508 ([id number]) PHQ-9 - 49153 - PHQ-9 Billing: Yes ([id number]) Time Spent (min) 34 Assessment & Plan Assessment & Plan (1) Physical exam: Code(s): Z00.00 - Encounter for general adult medical examination without abnormal findings Category: Medical (2) Colon cancer: Code(s): C18.9 - Malignant neoplasm of colon, unspecified Category: Medical Plan Daniel's Td vaccination will be updated due to past injuries at work potentially exposing him to tetanus. MRI results for monitoring the kidney tumor and any signs of metastasis will be reviewed. Continued observation of his blood work, particularly his low white blood cell count, is necessary with his cancer diagnosis in mind. His general health remains favorable with consistent management of his current conditions, regular screenings, and vaccinations. No additional blood work is needed at this time. Patient was informed and verbally consented to the use of an ambient scribe for clinic note documentation during this visit. I discussed with Daniel the importance of reviewing the MRI results that were conducted a week prior to evaluate the kidney tumor and its extent post imaging. Given previous injuries at work and safety from tetanus infection, updating the Td vaccine was recommended and agreed upon. We reviewed his recent blood work, noting consistent low white blood cells and commented on the overall stability of his other lab parameters, indicating adequate management of his chronic conditions. I emphasized the importance of keeping up to date with vaccines and health screenings, given his comprehensive surgical history and cancer diagnosis. No new blood work or immediate interventions were deemed necessary at this time. Orders: Orders Td State Immunization Today Z23 - Encounter for immunization Patient Instructions: - Update Td vaccine. - Continue standard monitoring. - Follow-up for MRI results. - Maintain regular health and vaccination updates. - No new blood work is required currently. - Monitor for any new symptoms or changes.
[2025-03-30 16:45] VITALS: BP 122/74; BMI 24.6
== END 2025-03-30 17:23 | disposition home or self-care (01) ==
LOC: HO.HMCH 16:30
PROVIDERS: PCP Internal Medicine; Visit Provider Internal Medicine
DX: Z00.00 Encounter for general adult medical examination without abnormal findings (principal); C18.9 Malignant neoplasm of colon, unspecified; Z23 Encounter for immunization

== ENCOUNTER → 2025-03-30 16:29 | Outpatient (BNVA) | payer MEDICARE, MEDICAID, SELFPAY | PROVIDERS: PCP Internal Medicine; Visit Provider Internal Medicine | DX: Z00.00 Encounter for general adult medical examination without abnormal findings (principal); Z23 Encounter for immunization; C18.9 Malignant neoplasm of colon, unspecified | CPT/HCPCS: 90471; 90714; 96127; 99396 ==

== ENCOUNTER 2025-05-25 14:37 | Outpatient (AMB) | payer MEDICARE, MEDICAID, SELFPAY ==
--- NOTE | 2025-05-25 14:42 | MHC.OFFVIS ---
Vital Signs 05/25/25 14:48 Height 5 ft 3 in Weight 140 lb BMI 24.8 BP 155/75 H Blood Pressure Location Lt brachial Position Sitting Pulse 64 Pulse Oximetry (%) 99 Oxygen Delivery Method Room Air Intake Visit Reasons: colo rescreen josefa referral Intake Note: Patient new consult for diarrhea, 2nd pre Colonoscopy screening./ mentally challenged Patient denies any GI issues. Manager Endoscopy Required: No Accompanied by: Self / Same As Patient Allergies No Known Allergies (No Known Allergies*) Allergy (Unknown, Verified 05/25/25 14:42) NKA HPI HPI colo rescreen josefa referral: Details: Findings: Terminal Ileum: Not evaluated Cecum: Normal Ascending Colon: A large polypoidal mass from 65 to 70 cms in the proximal ascending colon covering 60% of the colon circumference. Multiple biopsies were obtained and area was marked by Regi ink injected proximal to the lesion. A 12-15 mm sessile polyp in the mid AC - removed with a hot snare. Scattered moderate diverticulosis throughout the entire colon Transverse Colon: Scattered moderate diverticulosis throughout the entire colon Descending Colon: Scattered moderate diverticulosis throughout the entire colon Sigmoid Colon: A 12 - 15 mm sessile polyp at 25 cms - removed with a hot snare. Scattered moderate diverticulosis throughout the entire colon Rectum: A 15 to 18 mm pedunculated polyp on a short pedicle. Polyp was removed with a hot snare and polypectomy site was closed with 1 hemoclip Ano-rectum: Small internal hemorrhoids Colon preparation: Good after some irrigation. [place] Bowel Preparation Scale Right colon; 2 Transverse colon: 2 Left colon; 2 (0 = Unprepared colon segment with mucosa not seen due to solid stool that cannot be cleared. 1 = Portion of mucosa of the colon segment seen, but other areas of the colon segment not well seen due to staining, residual stool and/or opaque liquid. 2 = Minor amount of residual staining, small fragments of stool and/or opaque liquid, but mucosa of colon segment seen well. 3 = Entire mucosa of colon segment seen well with no residual staining, small fragments of stool or opaque liquid) Impression and Post Procedure Diagnosis: Colonoscopy Findings: A large polypoidal mass from 65 to 70 cms in the proximal ascending colon covering 60% of the colon circumference. Multiple biopsies were obtained and area was marked by Regi ink injected proximal to the lesion. (Biopsies showed tubulovillous adenoma) Three medium sized polyps were removed Moderate diverticulosis seen in the entire colon small hemorrhoids on retroflexed exam. Plan: Pt has a FU appointment on 05/21/24 with MONY [address] Abd CT and referral to General Surgery for removal of right colon mass and repeat Colonoscopy in 6 to 12 months if polyps are adenomatous. Above findings were reviewed with the patient and relevant handouts were given and the discharge area. BIOPSIES SHOWED: A. Colon, ascending mass at 55 cm, biopsy: Tubulovillous adenoma; negative for high-grade dysplasia. B. Colon, ascending, polypectomy: Tubular adenoma; negative for high-grade dysplasia. C. Colon, sigmoid at 25 cm, polypectomy: Tubular adenoma; negative for high-grade dysplasia. D. Colon, polyp at 10 cm, polypectomy: Tubular adenoma; negative for high-grade dysplasia; margins negative PATHOLOGY FROM COLON RECECTION Diagnosis Colon, right, segmental resection: - Adenocarcinoma, moderately differentiated with mucinous features, invasive into subserosa; negative margins. - Metastatic carcinoma present in one of 23 lymph nodes examined. - Tubular adenomata, hyperplastic and inflammatory polyps. - pT3 N1a (AJCC Stage 8th ed.) TODAY'S VISIT Patient is here today for requested visit. Last seen in the office a year ago, had colonoscopy last year's large mass found and patient was referred to general surgery for re-evaluation of ascending colon mass that was found at 55 cm, Biopsy showed tubulovillous adenoma negative for high-grade dysplasia or carcinoma. Patient had colon resection on June 03 2024 mass was sent for biopsy showed adenocarcinoma. Patient never followed up in our office after the procedure. Patient was also diagnosed with testicular cancer and incidental finding of renal carcinoma. Patient started chemotherapy and currently is doing well. Patient denies any GI concerning symptoms at the moment. Few episodes of loose stools. Patient denies any issues with anesthesia in the past. Now history of sleep apnea. Not on any anticoagulation medication. Denies any cardiac or respiratory symptoms. Patient denies any melena, hematochezia. Patient is here with construction site manager. Patient is unable to provide good history. Patient's construction site manager is providing most of the information states that he has a good appetite [facility] Medical History Colon cancer Wears hearing aid in right ear Physical exam Thrombocytopenia Vertigo HTN (hypertension) Testicle cancer Hearing loss Developmental delay, mild Autoimmune thyroiditis Bicytopenia [place] Family history of hypertension Surgical History Hx of surgical procedure (~06/03/24) Hx of colonoscopy (04/14/24) H/O arthroscopic knee surgery History of orchiectomy History of neck surgery History of cholecystectomy History of tonsillectomy Family History Father Lung cancer Hypertension Mother Emphysema lung Hypertension Paternal Grandfather Cancer Brother Slow to wake up after anesthesia PONV (postoperative nausea and vomiting) Social History Household Members: Family Housing: House Are you a primary respiratory care practitioner to a significant other at home: No Do you presently have visiting nurse or other home services: No Alcohol intake: never Patient Tobacco Use Status: Never used Tobacco e-Cigarette/Vaping Use: Never Used Second Hand Smoke Exposure: No service: No Current occupational status: employed Current occupation: [employer] Current occupational exposures/hazards: No Cognitive needs: No Hearing needs: Yes Vision needs: No Review of Systems Const Denies weight gain and Denies weight loss ENT Reports no additional complaints, Denies dysphagia and Denies odynophagia Card Reports no additional complaints Resp Reports no additional complaints GI Denies abdominal pain, Denies belching, Denies melena, Denies bloating, Denies change in bowel habits, Denies dysphagia, Denies excessive flatus, Denies dyspepsia, Denies heartburn, Denies diarrhea, Reports loose stools (Occasional), Denies nausea, Denies odynophagia and Denies vomiting Reports no additional complaints Musc Reports no additional complaints Neuro Reports no additional complaints Psych Reports no additional complaints Endo Reports no additional complaints Physical Exam Vital Signs: Last Vital Signs Pulse 64 07/14/25 14:48 BP 155/75 H 05/25/25 14:48 Pulse Ox 99 05/25/25 14:48 Oxygen Delivery Method Room Air 05/25/25 14:48 BMI result Body Mass Index 24.8 Const General: healthy appearing, no acute distress and well developed Nutritional Appearance: well nourished Orientation/consciousness: patient oriented x3 Resp Effort & Inspection: normal respiratory effort, able to speak in complete sentences, no tracheal deviation and symmetric chest movement Auscultation: clear to auscultation bilaterally Cardio Rate: regular rate GI Inspection: Yes normal to inspection and No distended Palpation (GI): Soft to palpation, not firm, nontender and No hepatosplenomegaly present Auscultation: normal bowel sounds General: Yes no CVA tenderness Back/Spine/Pelvis Back: no CVA tenderness Skin General skin exam: elasticity normal, turgor normal and dry skin Neuro General: patient oriented x3 Psych Appearance: grossly normal Assessment & Plan Assessment & Plan (1) Colon carcinoma: Code(s): C18.9 - Malignant neoplasm of colon, unspecified Category: Medical Plan Patient will be sent for colonoscopy. Message sent to Surgical scheduled to bulk patient. Denies any cardiac or respiratory symptoms. Denies history of sleep apnea. Not on any anticoagulation medication. What to expect before during and after procedure discussed with patient and the construction site manager. Stressed the importance of good bowel prep day before procedure. Patient will follow-up after the procedure, sooner on as needed basis. Patient's construction site manager would like for us to schedule his procedure on Sunday so they can stay with him on Sunday and make sure that patient does good prep. I will see patient after the procedure, sooner on as needed basis. Thank you for allowing me to participate in his care Medications: New bisacodyl (Dulcolax (bisacodyl)) take 4 tabs at noon the day before your colonoscopy 20 mg (4 x 5 mg) PO ONCE 4 tabs 0RF constipation 1 day Z12.11 - Encounter for screening for malignant neoplasm of colon polyethylene glycol 3350 (Miralax) As directed by gastroenterology department at [facility] 238 grams PO ONCE 238 grams 0RF Z12.11 - Encounter for screening for malignant neoplasm of colon Coding Level of Care Code Est Pt Level 4 (57373) Diagnoses Colon carcinoma C18.9 Time Spent (min) 40 Comment 25 minutes spent with patient and additional 15 minutes spent reviewing his record
[2025-05-25 14:48] VITALS: BP 155/75; PULSE 64; O2SAT 99; BMI 24.8
--- OUTSIDE RECORDS SUMMARY | 2025-05-25 15:54 | XMS_ITS | Patient Health Record ---
Author Organization [facility] Address [address] [place] [id number] Care Team Providers Care Nc Manager Name Role Phone Dennis Duke Jr [phone] Reason For Referral No Information Plan Of Treatment No Information
== END 2025-05-25 16:39 | disposition home or self-care (01) ==
LOC: HO.HGI 14:37
PROVIDERS: PCP Internal Medicine; Visit Provider Nurse Practitioner Family
DX: C18.9 Malignant neoplasm of colon, unspecified (principal)
CPT/HCPCS: 99214

== ENCOUNTER → 2025-05-25 14:37 | Outpatient (BNVA) | payer MEDICARE, MEDICAID, SELFPAY | PROVIDERS: PCP Internal Medicine; Visit Provider Nurse Practitioner Family | DX: C18.9 Malignant neoplasm of colon, unspecified (principal); C62.90 Malignant neoplasm of unspecified testis, unspecified whether descended or undescended; R19.7 Diarrhea, unspecified | CPT/HCPCS: 99212 ==

== ENCOUNTER 2025-06-23 13:50 | Outpatient (REF) | payer MEDICARE, MEDICAID, SELFPAY ==
--- NOTE | ~2025-06-23 | CT_ITS ---
CLINICAL HISTORY: F u renal cell CA, status post ablation.Colon canc Exam: CT abdomen and pelvis with IV contrast Comparison: CT/SR - CT ABDOMEN PELVIS W IV CON - 02/06/25 11:32 EDT Findings: Included lung bases are normal. Central line or MediPort terminates in the right atrium/IVC junction. Right hepatic dome and superior aspect of the spleen are excluded. Unchanged atrophic left hepatic lobe especially medial segment and enlarged right hepatic lobe, the included liver demonstrates no focal lesion. Status post cholecystectomy, unchanged mild intrahepatic bile duct dilatation. Patent hepatic and portal veins. CBD is not dilated. Pancreas, adrenal glands, bladder are unremarkable. Mild prostatomegaly. Previously seen exophytic right renal mass anterior interpolar region is replaced by centrally fatty mass with soft tissue density rim 1.8 x 1.1 cm, most likely post ablation changes, the mass is difficult to delineate, probably the residual mass is in the slightly denser medial rim 5 x 6 mm. Stable too small to characterize exophytic hypodensity left kidney lower pole. Left renal parapelvic cysts. Extensive distal colonic diverticulosis, negative for acute diverticulitis. Status post right hemicolectomy, unremarkable ileocolic anastomosis. Atherosclerotic disease, nonaneurysmal aorta. No bulky lymph nodes. No ascites or pneumoperitoneum. Stable subcentimeter sclerotic lesion right posterior iliac bone, axial image 50. Degenerative changes of the lumbar spine. No acute osseous abnormality. No new osseous lesion. Impression: 1. Posttreatment changes of right kidney anterior interpolar region with probable residual mass 6 mm, close attention on follow-up exam. 2. Status post right hemicolectomy, unremarkable ileocolic anastomosis. No CT finding to suggest metastasis. 3. Extensive distal colonic diverticulosis. 4. Additional stable chronic findings, as detailed above. This document has been electronically signed by: Samia Miller MD on 06/24/2025 15:55:04
--- OUTSIDE RECORDS SUMMARY | 2025-06-23 14:53 | XMS_ITS | Patient Health Record ---
Author Organization [facility] Address [address] [place] [id number] Care Team Providers Care Milling Machine Operator Name Role Phone Dennis Duke Jr [phone] Reason For Referral No Information Plan Of Treatment No Information
[2025-06-23] MEDS: iohexoL 350 MG/ML 100 ML INFUS..BTL IV (16:46)
[2025-06-23] MEDS: Barium Sulfate Oral (Berry) 450 ML ORAL.SUSP 900 ML PO (16:49)
== END 2025-06-23 13:51 | disposition home or self-care (01) ==
LOC: HO.CT 13:50
PROVIDERS: PCP Internal Medicine; Visit Provider Internal Medicine Medical Oncology
DX: N28.89 Other specified disorders of kidney and ureter (principal)
CPT/HCPCS: 74177; Q9967

== ENCOUNTER → 2025-06-23 13:52 | Outpatient (BNV) | payer MEDICARE, MEDICAID, SELFPAY | PROVIDERS: PCP Internal Medicine; Visit Provider Radiology Diagnostic Radiology | DX: K57.30 Diverticulosis of large intestine without perforation or abscess without bleeding (principal) | CPT/HCPCS: 74177 ==

== ENCOUNTER 2025-07-20 08:28 | Day surgery (SDC) | payer MEDICARE, MEDICAID, SELFPAY ==
--- OUTSIDE RECORDS SUMMARY | 2025-06-18 08:03 | XMS_ITS | Patient Health Record ---
Author Organization [facility] Address [address] [place] [id number] Care Team Providers Care Civil Transportation Engineer Name Role Phone Dennis Duke Jr Reason For Referral No Information Plan Of Treatment No Information
[2025-07-16 09:24] VITALS: BMI 24.8
--- NOTE | 2025-07-17 10:58 | P.CONAN_ITS ---
Documented by User: Aaliyah Reyes NP 07/17/25 11:01 HPI - Anesthesia Eval Consult details Narrative: 59 yr old male for colonscopy H/O testicular, colon and renal cell CA, ?port a cath in place PMFSH Active Problems Active Problems: All Active Problems (Updated 07/16/25 @ 15:14 by Christopher Bradshaw MD) Renal mass, right (Acute) Colon carcinoma (Chronic) Renal lesion (Acute) Physical exam (Acute) Positive colorectal cancer screening using Cologuard test (Acute) Essential hypertension (Acute) Elevated blood pressure reading without diagnosis of hypertension (Acute) [place] (Acute) Colon cancer (Acute) Physical exam (Acute) Thrombocytopenia (Acute) Vertigo (Acute) Hearing loss (Acute) Developmental delay, mild (Acute) Autoimmune thyroiditis (Acute) Bicytopenia (Acute) Family history of hypertension (Acute) Past Medical History Medical History Port-A-Cath in place Colon cancer Wears hearing aid in right ear Physical exam Thrombocytopenia Vertigo HTN (hypertension) Testicle cancer Hearing loss Developmental delay, mild Autoimmune thyroiditis Bicytopenia [place] Family history of hypertension Family History Family History Father Lung cancer Hypertension Mother Emphysema lung Hypertension Paternal Grandfather Cancer Brother Slow to wake up after anesthesia PONV (postoperative nausea and vomiting) Family history of problems with anesthesia: No (Brother with PONV and slow to wake) Surgical History Surgical History Hx of surgical procedure (~06/03/24) Hx of colonoscopy (04/14/24) H/O arthroscopic knee surgery History of orchiectomy History of neck surgery History of cholecystectomy History of tonsillectomy History of Problems with Anesthesia: No Social History Social History Household Members: Family Housing: House Are you a primary home health care case manager to a significant other at home: No Do you presently have visiting nurse or other home services: No Alcohol intake: never Patient Tobacco Use Status: Never used Tobacco e-Cigarette/Vaping Use: Never Used Second Hand Smoke Exposure: No Are you DNR?: No Advance Directives: No Advance Directives Information Provided: Yes Poor oral hygiene: Yes service: No Current occupational status: employed Current occupation: [employer] Current occupational exposures/hazards: No Cognitive needs: No Hearing needs: Yes Vision needs: No Meds Allergies Allergy/AdvReac Type Severity Reaction Status Date / Time No Known Allergies (No Known Allergy Unknown NKA Verified 07/20/25 09:19 Allergies*) Exam Height,Weight and Vital Signs: Height 5 ft 3 in Weight 63.503 kg Pertinent Lab Results Pertinent Lab Results: Laboratory Tests 07/16/25 15:55 WBC 3.3 L RBC 3.96 L Hgb 14.0 Hct 40.8 L Plt Count 95 L Sodium 136 Potassium 4.1 BUN 15 Creatinine 0.90 Assessment and Plan Final Anesthetic Review Family History of Problems with Anesthesia: No (Brother with PONV and slow to wake) History of Problems with Anesthesia: No Documented by User: Jeovanny Loco MD 07/20/25 10:07 [facility] Past Medical History Medical History Port-A-Cath in place Colon cancer Wears hearing aid in right ear Physical exam Thrombocytopenia Vertigo HTN (hypertension) Testicle cancer Hearing loss Developmental delay, mild Autoimmune thyroiditis Bicytopenia [place] Family history of hypertension Family History Family History Father Lung cancer Hypertension Mother Emphysema lung Hypertension Paternal Grandfather Cancer Brother Slow to wake up after anesthesia PONV (postoperative nausea and vomiting) Surgical History Surgical History Hx of surgical procedure (~06/03/24) Hx of colonoscopy (04/14/24) H/O arthroscopic knee surgery History of orchiectomy History of neck surgery History of cholecystectomy History of tonsillectomy Social History Social History Household Members: Family Housing: House Are you a primary home health care case manager to a significant other at home: No Do you presently have visiting nurse or other home services: No Alcohol intake: never Patient Tobacco Use Status: Never used Tobacco e-Cigarette/Vaping Use: Never Used Second Hand Smoke Exposure: No Are you DNR?: No Advance Directives: No Advance Directives Information Provided: Yes Poor oral hygiene: Yes service: No Current occupational status: employed Current occupation: [employer] Current occupational exposures/hazards: No Cognitive needs: No Hearing needs: Yes Vision needs: No Meds Allergies Allergy/AdvReac Type Severity Reaction Status Date / Time No Known Allergies (No Known Allergy Unknown NKA Verified 07/20/25 09:19 Allergies*) Exam Airway Mallampati Class: III TM Dist: >3cm Neck ROM: Full Denture: Upper and Lower Loose/Missing/Broken Teeth: No Heart: RRR Lungs: CTA Assessment and Plan Assessment Anesthesia Assessment: Anesthesia Plan Discussed and Chart Reviewed Final Anesthetic Review ASA Class: III Patient Risk: Intermediate Procedure Risk: Low Anesthetic Plan Anesthetic Plan: MAC: and TIVA Disposition: Standard PACU
--- NOTE | 2025-07-20 08:20 | MHC.SHP ---
Pre-Procedural Eval Section A - 24 Hr Update-Section A only Date of Service: 07/20/25 The patient is an INPATIENT: No The patient has been examined within 24 hours of the surgical procedure. The History & Physical has been completed within 30 days and I have reviewed it.: No Section B - Complete if H&P > 30 days Chief Complaint: Follow-up of colon cancer and polyps Relevant Family History (Specify if Yes): No Relevant Social History: None Present Medications: see Short Stay Collaborative assessment Medical History: Significant History (Colon cancer Wears hearing aid in right ear Physical exam Thrombocytopenia Vertigo HTN (hypertension) Testicle cancer Hearing loss Developmental delay, mild Autoimmune thyroiditis Bicytopenia [place]) History of Previous Operations: Relevant previous surgery/procedure and date(s) (Hx of colonoscopy (04/14/24) H/O arthroscopic knee surgery History of orchiectomy History of neck surgery History of cholecystectomy History of tonsillectomy) Allergies: Allergies Allergy/AdvReac Type Severity Reaction Status Date / Time No Known Allergies (No Known Allergy Unknown NKA Verified 07/16/25 15:28 Allergies*) Review of Systems Sugical H&P ROS: Negative: Constitution, Cardiovascular, Respiratory and Gastrointestinal Exam Surgical H&P Exam: Normal: Heart, Normal: Lungs, Normal: Extremities and Normal: Abdomen Plan Diagnosis/Plan: Unchanged I have reviewed the history and physical and performed a pertinent physical examination on my patient. No changes have occurred unless specified. Time Spent With Patient Time: Total time managing care of this patient today ____ minutes.
[2025-07-20] MEDS: Lactated Ringers 1,000 ML 100 ML IVCONT (09:01)
[2025-07-20 09:22] VITALS: BP 145/68; PULSE 68; RESP 18; TEMP 36.7; O2SAT 99
--- NOTE | 2025-07-20 09:23 | PC.NURSE ---
Answers to questions are documented as sister in law answered. Patient answers questions appropriately, but sister in law HCP, states patient tends to wants to please everyone and will answer yes to everything. patient has developmental delay.
--- NOTE | 2025-07-20 11:50 | P.OPN-COLO_ITS ---
Colonoscopy Operative Note Operative Note Date of Service: 07/20/25 Narrative: COLONOSCOPY TILL ILEO-COLIC ANASTOMOSIS WITH BIOPSIES Pre-op diagnosis: Follow-up of colon cancer (pt is status post right colon resection in May,), surveillance for colon polyps. Post-op diagnosis:? Colon polyp, Diverticulosis, hemorrhoids Endoscopist:? Jose Cruz Olsen MD Anesthesia:?MAC Consent: Indications for the procedure and potential complications of bleeding, perforation, reaction to medications and missed diagnosis were discussed with Keesha Burroughs (patient's [id number] and HCP) and informed consent was obtained. Instrument: Olympus PCF H 190 L variable stiffness pediatric colonoscope Monitoring: Vital signs and clinical assessment, intermittent blood pressure monitoring, continuous EKG monitoring, Pulse oximetry and Carbon Dioxide monitoring were done throughout the procedure. Please see anesthesia flowsheet. Colon withdrawl time was 14 minutes. Procedure: The patient was placed in the left lateral decubitis position and pre-procedure medications were administered. After a digital rectal examination of the ano-rectum, the video colonoscope was inserted into the rectum and advanced through the colon to the cecum. The colonoscope was slowly withdrawn in a retrograde panoramic fashion and the colon mucosa was carefully examined including a retroflexed view of the rectum. Findings and interventions are described below. Procedure Difficulty: without difficulty Findings: Transverse Colon: Ileocolic anastomosis visualized at 70 cms with edematous folds - biopsies were obtained. A 4-5 mm sessile polyp - removed with a cold biopsy. Scattered moderate diverticulosis throughout the entire colon Descending Colon: Scattered moderate diverticulosis throughout the entire colonl Sigmoid Colon: Severe diverticulosis with luminal narrowing Rectum: Normal Ano-rectum: Small internal hemorrhoids Colon preparation: Good after copious irrigation. [place] Bowel Preparation Scale Right colon; 2 Transverse colon: 2 Left colon; 2 (0 = Unprepared colon segment with mucosa not seen due to solid stool that cannot be cleared. 1 = Portion of mucosa of the colon segment seen, but other areas of the colon segment not well seen due to staining, residual stool and/or opaque liquid. 2 = Minor amount of residual staining, small fragments of stool and/or opaque liquid, but mucosa of colon segment seen well. 3 = Entire mucosa of colon segment seen well with no residual staining, small fragments of stool or opaque liquid) Impression and Post Procedure Diagnosis: Colonoscopy Findings: One small polyp was removed Ileo-colic anastomosis visualized at 70 cms with edematous folds - biopsies were obtained. Moderate to severe diverticulosis seen in the entire colon Small hemorrhoids on retroflexed exam. Plan: I will send a letter with biopsy results. Repeat Colonoscopy in 3 years if polyps are adenomatous and due to a personal hx of colon cancer. (Dulcolax 2 tablets daily starting 5 days prior to next colonoscopy appointmen t). Above findings were reviewed with the patient's [id number] and relevant handouts were given and the discharge area.
[2025-07-20 11:52] VITALS: BP 75/37; PULSE 57; RESP 20; TEMP 36.7; O2SAT 100
[2025-07-20 12:07] VITALS: BP 89/46; PULSE 57; RESP 20; O2SAT 96
[2025-07-20 12:15] VITALS: BP 117/59; PULSE 59; RESP 16; O2SAT 99
== END 2025-07-20 12:39 | disposition home or self-care (01) ==
PROVIDERS: PCP Internal Medicine; Visit Provider Internal Medicine Gastroenterology
PROC: 0DJD8ZZ Inspection of Lower Intestinal Tract, Via Natural or Artificial Opening Endoscopic (ICD-10-PCS; CPT 45378; principal; 2025-07-20 10:20)
DX: Z12.11 Encounter for screening for malignant neoplasm of colon (principal); Z85.038 Personal history of other malignant neoplasm of large intestine; Z95.828 Presence of other vascular implants and grafts; Z86.0101 Personal history of adenomatous and serrated colon polyps; K63.5 Polyp of colon; K57.30 Diverticulosis of large intestine without perforation or abscess without bleeding; K64.8 Other hemorrhoids; Z90.49 Acquired absence of other specified parts of digestive tract; Z98.0 Intestinal bypass and anastomosis status; Z90.79 Acquired absence of other genital organ(s); Z85.47 Personal history of malignant neoplasm of testis; I10 Essential (primary) hypertension; D69.6 Thrombocytopenia, unspecified; D75.9 Disease of blood and blood-forming organs, unspecified; R62.59 Other lack of expected normal physiological development in childhood; R42 Dizziness and giddiness; E06.3 Autoimmune thyroiditis; H91.90 Unspecified hearing loss, unspecified ear; Z97.4 Presence of external hearing-aid; Z98.890 Other specified postprocedural states
CPT/HCPCS: 45380; 88305; J2003; J2704

== ENCOUNTER → 2025-07-20 08:28 | Outpatient (BNV) | payer MEDICARE, MEDICAID, SELFPAY | PROVIDERS: PCP Internal Medicine; Visit Provider Internal Medicine Gastroenterology | DX: C18.9 Malignant neoplasm of colon, unspecified (principal); K63.5 Polyp of colon; K57.90 Diverticulosis of intestine, part unspecified, without perforation or abscess without bleeding; K64.8 Other hemorrhoids | CPT/HCPCS: 45380; 45385 ==

== ENCOUNTER 2025-08-03 16:47 | Outpatient (AMB) | payer MEDICARE, MEDICAID, SELFPAY ==
[2025-08-03 17:01] VITALS: BP 122/74; PULSE 61; TEMP 36.3; O2SAT 98; BMI 25.7
--- NOTE | 2025-08-03 17:01 | MHC.PC.OV ---
Vital Signs 08/03/25 17:01 Height 5 ft 3 in Weight 145 lb BMI 25.7 BP 122/74 Blood Pressure Location Rt brachial Position Sitting Pulse 61 Pulse Source Pulse Oximeter Temp 97.3 F Temp Source Temporal Artery Scan Pulse Oximetry (%) 98 Oxygen Delivery Method Room Air Intake Visit Reasons: mets cancer Case Management Social Worker Required: No Accompanied by: Self / Same As Patient Allergies No Known Allergies (No Known Allergies*) Allergy (Unknown, Verified 08/03/25 17:23) NKA Medication List - Last Reconciled 08/03/25 by Nasima Costa MD amlodipine 10 mg PO DAILY 90 days losartan 25 mg PO DAILY 90 days Tobacco use date assessed: 08/03/25 Dental Screening Dental Screen Date: 08/03/25 Did you have a dental visit in the last 12 months?: Yes Did you have a dental problem in the last 6 months where you did not have access to dental care?: No Was dental information given to patient?: Patient has dentist HPI HPI Comments History of Present Illness Details This is a 59-year-old male with hypertension and history of colon cancer which comes here today accompanied by brother for follow-up on his conditions. Blood pressure within goal. Had a colonoscopy this year which was normal. Denies any acute complaints. No chest pain or shortness on breath. [facility] Medical History (Updated 08/03/25 @ 20:32 by Nasima Costa MD) Elevated blood pressure reading without diagnosis of hypertension Port-A-Cath in place Colon cancer Wears hearing aid in right ear Physical exam Thrombocytopenia Vertigo HTN (hypertension) Testicle cancer Hearing loss Developmental delay, mild Autoimmune thyroiditis Bicytopenia [place] Family history of hypertension Surgical History Hx of surgical procedure (~06/03/24) Hx of colonoscopy (04/14/24) H/O arthroscopic knee surgery History of orchiectomy History of neck surgery History of cholecystectomy History of tonsillectomy Family History Father Lung cancer Hypertension Mother Emphysema lung Hypertension Paternal Grandfather Cancer Brother Slow to wake up after anesthesia PONV (postoperative nausea and vomiting) Social History Household Members: Family Housing: House Are you a primary care program director to a significant other at home: No Do you presently have visiting nurse or other home services: No Alcohol intake: never Patient Tobacco Use Status: Never used Tobacco e-Cigarette/Vaping Use: Never Used Second Hand Smoke Exposure: No service: No Current occupational status: employed Current occupation: [employer] Current occupational exposures/hazards: No Cognitive needs: No Hearing needs: Yes Vision needs: No Questionnaire PHQ-9 Over the last 2 weeks, how often have you been bothered by any of the following problems? 1. Little interest or pleasure in doing things: not at all 2. Feeling down, depressed, or hopeless: not at all 3. Trouble falling or staying asleep, or sleeping too much: several days 4. Feeling tired or having little energy: several days 5. Poor appetite or overeating: not at all 6. Feeling bad about yourself - or that you are a failure or have let yourself or your family down: not at all 7. Trouble concentrating on things, such as reading the newspaper or watching television: not at all 8. Moving or speaking so slowly that other people could have noticed. Or the opposite - being so fidgety or restless that you have been moving around a lot more than usual: several days 9. Thoughts that you would be better off or of hurting yourself in some way: not at all Total score: 3 Source: Developed by Drs. Suresh Zhao, Maddy Wolf, Emmanuel Ortega and colleagues, with an educational makenzie from [employer]. Thrive Questionnaire Date Thrive assessed: 07/28/25 I am a: Parent/Caregiver What is your living situation today?: I have a steady place to live Within the past 12 months, did the food you bought not last and you didn't have the money to get more?: Never true Within the past 12 months, did you worry whether your food would run out before you got money to buy more?: Never true Do you have trouble paying for medicines?: I choose not to answer this question Do you have trouble getting transportation to medical appointments?: No Do you have trouble paying your heating and electricity bill?: No Do you have trouble taking care of your child, family member or friend?: I choose not to answer this question Do you have trouble with day-to-day activities such as bathing, preparing meals, shopping, managing finances, etc.?: No Are you currently unemployed and looking for a job?: No Are you interested in more education?: I choose not to answer this question Please select the resources that you would like help with: None Currently or been in a relationship where the following occur: No concerns reported THRIVE Score: 0 AUDIT C Alcohol Use Questionnaire (AUDIT-C) 1. How often do you have a drink containing alcohol?: Never 3. How often do you have six or more drinks on one occasion?: Never Total Score: 0 Score Reviewed/Action Taken: No PHUC-7 AMB Questionnaire PHUC-7 Date PHUC - 7 assessed: 03/30/25 Feeling nervous, anxious, or on edge: 0 = Not at all Not being able to stop or control worryin = Not at all Worrying too much about different things: 0 = Not at all Trouble relaxin = Not at all Being so restless that it is hard to sit still: 0 = Not at all Becoming easily annoyed or irritable: 0 = Not at all Feeling afraid as if something awful might happen: 0 = Not at all Total PHUC-7 score (0-4 normal; 5-9 mild; 10-14 moderate; 15-21 severe): 0 Source: Developed by Drs. Suresh Zhao, Maddy Wolf, Emmanuel Ortega and colleagues, with an educational makenzie from [employer]. PHUC-7 Assessment Billing PHUC-7 Assessment Tool: PHUC-7 Assessment 23239 Review of Systems Const All systems reviewed & are unremarkable except as noted in HPI and below Card Denies chest pain at rest, Denies chest pain with activity, Denies edema, Denies irregular heart rhythm, Denies claudication, Denies dyspnea, Denies dyspnea on exertion, Denies orthopnea, Denies paroxysmal nocturnal dyspnea and Denies slow heart rate Resp Denies cough, Denies dyspnea and Denies dyspnea on exertion Neuro Denies behavioral changes and Denies lack of coordination Psych Denies behavioral changes Physical exam (Primary Care) Vital Signs: Last Vital Signs Temp 97.3 F 08/03/25 17:01 Pulse 61 08/03/25 17:01 BP 122/74 08/03/25 17:01 Pulse Ox 98 08/03/25 17:01 Oxygen Delivery Method Room Air 08/03/25 17:01 BMI result Body Mass Index 25.7 Tobacco/Smoking Status: Tobacco use Status Tobacco use date assessed 08/03/25 08/03/25 17:04 Patient Tobacco Use Status Never used Tobacco 08/03/25 17:04 e-Cigarette/Vaping Use Never Used 08/03/25 17:04 PHQ-9: PHQ-9 Score PHQ-9: Total score 3 08/03/25 17:25 Thrive Assessment: Date of Thrive Assessment Date Thrive assessed 07/28/25 08/03/25 17:04 Currently or been in a relationship where the following occur: No concerns reported Resp Effort & Inspection: normal respiratory effort Auscultation: clear to auscultation bilaterally Cardio Jugular venous distension: no JVD Rate: regular rate Rhythm: regular rhythm Heart sounds: S1 normal heart sound present and S2 normal heart sound present Extrem General: Yes full ROM Coding Level of Care Code Est Pt Level 3 (48454) Complex EM visit Add On G2211 Diagnoses Essential hypertension I10 Colon cancer C18.9 Additional Codes PHUC-7 Assessment Billing - PHUC-7 Assessment Tool: PHUC-7 Assessment 49556 ([id number]) Time Spent (min) 19 Assessment & Plan Assessment & Plan (1) Essential hypertension: Code(s): I10 - Essential (primary) hypertension Category: Medical (2) Colon cancer: Code(s): C18.9 - Malignant neoplasm of colon, unspecified Category: Medical Plan Continue current meds. Follow-up with Hematology-Oncology.
--- OUTSIDE RECORDS SUMMARY | 2025-08-03 18:23 | XMS_ITS | Patient Health Record ---
Author Organization [facility] Address [address] [place] [id number] Care Team Providers Care Mold Car Pusher Name Role Phone Dennis Duke Jr [phone] Reason For Referral No Information Plan Of Treatment No Information
== END 2025-08-03 17:42 | disposition home or self-care (01) ==
LOC: HO.HMCH 16:48
PROVIDERS: PCP Internal Medicine; Visit Provider Internal Medicine
DX: I10 Essential (primary) hypertension (principal); C18.9 Malignant neoplasm of colon, unspecified

== ENCOUNTER → 2025-08-03 16:47 | Outpatient (BNVA) | payer MEDICARE, MEDICAID, SELFPAY | PROVIDERS: PCP Internal Medicine; Visit Provider Internal Medicine | DX: I10 Essential (primary) hypertension (principal); C18.9 Malignant neoplasm of colon, unspecified | CPT/HCPCS: 96127; 99212 ==

== ENCOUNTER 2025-09-29 08:34 | Outpatient (AMB) | payer MEDICARE, MEDICAID, SELFPAY ==
[2025-09-29 08:40] VITALS: BP 122/74; PULSE 100; TEMP 36.9; O2SAT 95; BMI 25.5
--- NOTE | 2025-09-29 08:40 | MHC.OFFWIV ---
Intake Vital Signs 09/29/25 08:40 Height 5 ft 3 in Weight 144 lb BMI 25.5 BP 122/74 Blood Pressure Location Lt brachial Position Sitting Pulse 100 Pulse Source Pulse Oximeter Temp 98.4 F Temp Source Oral Pulse Oximetry (%) 95 Oxygen Delivery Method Room Air Intake Visit Reasons: EP consistent cough Intake Note: pt presents with chest congestion with productive coughing, sinus congestion x2 weeks Patient Tobacco Use Status: Never used Tobacco Allergies No Known Allergies (No Known Allergies*) Allergy (Unknown, Verified 09/29/25 08:46) NKA Do you need a note to return to daycare/school/sports/work: No HPI HPI Comments History of Present Illness Details History - The patient is a 60-year-old male presenting with his brother who gives the history for him as he is deaf, for a persistent cough. - The cough has been present for almost two weeks and is accompanied by mucus production. - He states that the cough is worse at night. - There is no history of fever, and a COVID test was negative at home. - The patient has been using NyQuil Cold and Flu without significant improvement. - The patient has a history of recent cancer treatment, which may affect his immune status. - He denies fever, chills, CP, SOB, abd pain, or n/v/d. - He has sick contacts at home. - He has no recent travel. - He denies sore throat or ear pain. - Has no weight loss or nights sweats. Physical Exam General: Cooperative, healthy appearing, comfortable and no acute distress Orientation/consciousness: Patient oriented x3 Limitations: No limitations Head: Normal to inspection Ears: Hearing grossly normal bilaterally, external ears normal and TM's normal bilaterally Nose: Normal external nose present, normal nares present, and no nasal discharge present. Face and sinus: Sinuses nontender to palpation. Mouth: Normal oral and palatal mucosa present and moist mucous membranes noted. Throat: Tonsils normal. Uvula is midline. Posterior oropharynx with erythema and no exudates. Eyes: Appearance normal, both eyes and all related structures Neck: Normal visual inspection, full ROM. No lymphadenopathy noted. Respiratory: Clear to auscultation bilaterally. Normal respiratory effort, able to speak in complete sentences. No respiratory distress, not tachypneic, no tripod positioning and no use of accessory muscles. Cardiovascular: Regular rate and rhythm. Normal S1 and S2. No m/r/g noted. Skin: No rashes or lesions noted Patient was informed and verbally consented to the use of an ambient scribe for clinic note documentation during this visit [facility] Medical History Elevated blood pressure reading without diagnosis of hypertension Port-A-Cath in place Colon cancer Wears hearing aid in right ear Physical exam Thrombocytopenia Vertigo HTN (hypertension) Testicle cancer Hearing loss Developmental delay, mild Autoimmune thyroiditis Bicytopenia [place] Family history of hypertension Surgical History Hx of surgical procedure (~06/03/24) Hx of colonoscopy (04/14/24) H/O arthroscopic knee surgery History of orchiectomy History of neck surgery History of cholecystectomy History of tonsillectomy Family History Father Lung cancer Hypertension Mother Emphysema lung Hypertension Paternal Grandfather Cancer Brother Slow to wake up after anesthesia PONV (postoperative nausea and vomiting) Social History Household Members: Family Housing: House Are you a primary career and transition teacher to a significant other at home: No Do you presently have visiting nurse or other home services: No Alcohol intake: never Patient Tobacco Use Status: Never used Tobacco e-Cigarette/Vaping Use: Never Used Second Hand Smoke Exposure: No service: No Current occupational status: employed Current occupation: [employer] Current occupational exposures/hazards: No Cognitive needs: No Hearing needs: Yes Vision needs: No Review of Systems Const All systems reviewed & are unremarkable except as noted in HPI and below Physical Exam Vital Signs: Last Vital Signs Temp 98.4 F 09/29/25 08:40 Pulse 100 09/29/25 08:40 BP 122/74 09/29/25 08:40 Pulse Ox 95 09/29/25 08:40 Oxygen Delivery Method Room Air 09/29/25 08:40 BMI result Body Mass Index 25.5 Assessment & Plan Assessment & Plan (1) Cough: Code(s): R05.9 - Cough, unspecified Qualifiers: Cough type: acute Qualified Code(s): R05.1 - Acute cough Plan Most likely URI vs bronchitis vs pneumonia vs covid vs RSV vs flu plan - Plan includes prescribing an albuterol inhaler, prednisone, cough medicine, and a Z-Loy. - A chest x-ray is ordered to rule out pneumonia. - If pneumonia is suspected, Augmentin will be added to the treatment regimen. - COVID, flu, and RSV tests will be conducted, with follow-up based on results. - tylenol or motrin as needed for pain or fever - follow up with PCP Orders: Orders XR chest 2V Today R05.9 - Cough, unspecified SARS-CoV2/FLU/RSV Today R09.89 - Other specified symptoms and signs involving the circulatory and respiratory systems Medications: New prednisone 40 mg (2 x 20 mg) PO DAILY 10 tabs 0RF 5 days benzonatate 100 mg PO bid-tid PRN 21 caps 0RF Cough 7 days azithromycin For 250 mg dose pack: take 500 mg today (day 1), then 250 mg for 4 days (days 2-5) PO 6 tabs 0RF albuterol sulfate 90 mcg/actuation 2 puffs inhalation Q6H PRN 8.5 grams 0RF shortness of breath or wheezing or cough Coding Level of Care Code Est Pt Level 4 (73164) Diagnoses Acute cough R05.1 Cough type: acute
== END 2025-09-29 09:19 | disposition home or self-care (01) ==
PROVIDERS: PCP Internal Medicine; Visit Provider Physician Assistant Medical
DX: R05.1 Acute cough (principal)

== ENCOUNTER 2025-09-29 08:34 | Outpatient (REF) | payer MEDICARE, MEDICAID, SELFPAY ==
--- NOTE | ~2025-09-29 | XR_ITS ---
EXAMINATION: XR CHEST CLINICAL INFORMATION: R05.9 - Cough, unspecified; history of colon CA. COMPARISON: 06/11/2024. TECHNIQUE: 2 views of the chest were obtained. FINDINGS: Right-sided chest port in place, tip in the cavoatrial junction. The cardiac, hilar, and mediastinal contours are normal. The lungs are clear bilaterally. There is no pneumothorax or pleural effusion. There is no focal osseous or soft tissue abnormality. There are degenerative changes of the spine. XR/XR chest 2V IMPRESSION: No active pulmonary disease. Electronically signed by: Edison Villa MD 09/29/2025 09:24 AM [facility] [place]
[2025-09-29 12:02] LABS: Resp Syncy Virus RNA Qual PCR NEGATIVE (Negative); SARS COV2 PCR INHOUSE NEGATIVE (Negative)
== END 2025-09-29 08:35 | disposition home or self-care (01) ==
LOC: HO.HMGCX 08:34
PROVIDERS: PCP Internal Medicine; Visit Provider Physician Assistant Medical
DX: R05.1 Acute cough (principal); R09.89 Other specified symptoms and signs involving the circulatory and respiratory systems
CPT/HCPCS: 71046; 87637; 99212

== ENCOUNTER → 2025-09-29 09:11 | Outpatient (BNV) | payer MEDICARE, MEDICAID, SELFPAY | PROVIDERS: PCP Internal Medicine; Visit Provider Radiology Diagnostic Radiology | DX: R05.9 Cough, unspecified (principal) | CPT/HCPCS: 71046 ==